=== PATIENT | female | born 1970 | race Caucasian/White ===

== ENCOUNTER → 2017-11-15 14:49 | Outpatient (CLI) | payer BC, SELFPAY ==
[2017-09-08 11:09] VITALS: BMI 27.9
[2017-09-08 13:16] VITALS: BP 138/80
[2017-11-15 15:57] LABS: Absolute Lymphocyte Count 1.92 X10^3/ul (0.83-4.51); Basophil# 0.05 X10^3/uL; Basophil% 0.6 % (0-1); Eosinophil# 0.31 X10^3/uL; Hematocrit 40.8 % (37-47); Hemoglobin 13.2 g/dl (12.0-15.0); Lymphocyte # 1.92 X10^3/ul (4.0); Lymphocyte % 24.6 % (19-41); Mean Corp Hgb Conc 32.4 g/gl (32-36); Mean Corpuscular Hgb 29.7 pg (27.0-32.0); Mean Corpuscular Volume 91.9 fL (81-99); Mean Platelet Vol. 10.4 fl (6.2-12.0); Monocyte# 0.53 X10^3/uL; Monocyte% 6.8 % (0-10); Neutrophil # 4.97 X10^3/uL (2.7-7.7); Neutrophil % 63.6 % (47-70); Platelet Count 250 K/mm3 (150-450); RBC Distribution Width CV 13.4 % (11.6-14.6); RBC Distribution Width SD 44.2 fl (35.1-43.9); Red Blood Count 4.44 M/mm3 (4.2-5.4); White Blood Count 7.8 K/mm3 (4.4-11.0)
[2017-11-15 16:00] LABS: POSITIVE COUNT NO; POSITIVE DIFFERENTIAL NO; POSITIVE MORPHOLOGY NO
[2017-11-15 16:25] LABS: Ferritin 28 ng/mL (8-252); Iron 65 ug/dL (50-170); Iron Binding Capacity,Total 392 ug/dL (250-450)
[2017-11-16 11:36] LABS: Vitamin B12 380 pg/mL (211-911); Vitamin D,25 Hydroxy 16.2 ng/mL (19.95-100.01)
== END ==
PROVIDERS: Family Provider Family Medicine; PCP Family Medicine; Visit Provider Family Medicine
DX: R53.83 Other fatigue (principal)
CPT/HCPCS: 36415; 82306; 82607; 82728; 83540; 83550; 85025

== ENCOUNTER → 2018-01-01 14:14 | Outpatient (CLI) | payer BC, SELFPAY ==
[2018-01-01 16:31] LABS: Absolute Lymphocyte Count 2.04 X10^3/ul (0.83-4.51); Basophil# 0.04 X10^3/uL; Basophil% 0.6 % (0-1); Eosinophil# 0.23 X10^3/uL; Eosinophils% 3.4 % (0-5); Hematocrit 39.7 % (37-47); Hemoglobin 13.5 g/dl (12.0-15.0); Lymphocyte # 2.04 X10^3/ul (4.0); Lymphocyte % 29.9 % (19-41); Mean Corpuscular Volume 91.1 fL (81-99); Mean Platelet Vol. 10.4 fl (6.2-12.0); Monocyte# 0.45 X10^3/uL; Monocyte% 6.6 % (0-10); Neutrophil # 4.04 X10^3/uL (2.7-7.7); Neutrophil % 59.2 % (47-70); Platelet Count 297 K/mm3 (150-450); RBC Distribution Width SD 42.7 fl (35.1-43.9); Red Blood Count 4.36 M/mm3 (4.2-5.4); White Blood Count 6.8 K/mm3 (4.4-11.0)
[2018-01-01 16:37] LABS: Hemoglobin A1c 5.8 % (4.2-6.3)
[2018-01-01 16:39] LABS: ALB/GLOB Ratio 1.1 RATIO (0.9-2.4); AST(SGOT) 14 U/L (15-37); Alanine Aminotransfer ALT/SGPT 24 U/L (13-56); Albumin, Serum 4.2 g/dL (3.2-5.0); Alkaline Phosphatase 80 U/L (45-117); Anion Gap 10 (5-15); BUN 13 mg/dL (7-18); BUN/Creat Ratio 19.6 RATIO (10-20); Calcium,Total 9.1 mg/dL (8.5-10.1); Chloride 106 mmol/L (98-107); Cholesterol 244 mg/dL (200); Creatinine, Serum 0.66 mg/dL (0.55-1.02); EST Glomerular Filtration Rate 102 mL/min (>60); Est Glom Filt Rate - Afr Amer 123 mL/min (>60); Ferritin 15 ng/mL (8-252); Globulin 3.8 g/dL (2.2-4.2); Glucose 98 mg/dL (74-106); High Density Lipoprotein 43 mg/dL; Iron 44 ug/dL (50-170); Iron Binding Capacity,Total 430 ug/dL (250-450); Potassium 3.5 mmol/L (3.5-5.1); Rheumatoid Factor < 10.0 IU/mL (<15); Sodium Level 141 mmol/L (136-145); Triglycerides 246 mg/dL; Very Low Density Lipoprotein 49 mg/dL (5-40)
[2018-01-01 16:40] LABS: POSITIVE COUNT NO; POSITIVE DIFFERENTIAL NO; POSITIVE MORPHOLOGY NO
[2018-01-01 17:10] LABS: Erythrocyte Sedimentation Rate 4 mm/hr (0-20)
[2018-01-02 09:02] LABS: Vitamin D,25 Hydroxy 63.2 ng/mL (29.95-100.01)
[2018-01-04 09:06] LABS: Anti-Cardiolipin Ab, IgA, Qn < 9 APL U/mL (0-11); Anti-Cardiolipin Ab, IgG, Qn < 9 GPL U/mL (0-14); Anti-Cardiolipin Ab, IgM, Qn 11 MPL U/mL (0-12); CCP IgG Antibodies < 1 units (0-19)
[2018-01-04 09:37] LABS: ANTINUCLEAR ANTIBODIES DIRECT Positive (Negative); RNP Ab 1.8 AI (0.0-0.9)
[2018-01-04 11:33] LABS: Anti-dsDNA Ab 17 IU/mL (0-9)
== END ==
PROVIDERS: Family Provider Family Medicine; PCP Family Medicine; Visit Provider Family Medicine
DX: E61.1 Iron deficiency (principal); E55.9 Vitamin D deficiency, unspecified; R73.02 Impaired glucose tolerance (oral); E78.5 Hyperlipidemia, unspecified; M35.1 Other overlap syndromes
CPT/HCPCS: 36415; 80053; 80061; 82306; 82728; 83036; 83540; 83550; 85025; 85652; 86038; 86147; 86200; 86225; 86235; 86431

== ENCOUNTER → 2018-01-09 09:41 | Outpatient (CLI) | payer BC, SELFPAY ==
--- NOTE | 2018-01-09 09:43 | NM_ITS ---
CLINICAL: 47-year-old female with reported history of abdominal bloating. SEMI-SOLID PHASE 99m Tc SULFUR COLLOID GASTRIC EMPTYING STUDY COMPARISON: None available FINDINGS: The patient was administered 1.0 mCi of 99m Tc sulfur colloid mixed with oatmeal and consumed per os. Image acquisitions in the anterior-posterior projections for a total of 60 minutes. There is prompt visualization of the stomach. There is no gastroesophageal reflux identified. First order kinetics are maintained throughout the duration of the acquisitions. The T1/2 linear fit was calculated to be 63.18 minutes, (Normal: 12-56 minutes). NM/Gastric Emptying Study IMPRESSION: 1. ABNORMAL 99m Tc sulfur colloid semi-solid phase (oatmeal) gastric emptying imaging examination. A. There is delayed semi-solid phase gastric emptying compared to normal controls with maintained first order kinetics throughout all components of the examination. (Cary et al, J Nucl Med Tech 38: 186, 2010). Electronically Signed: Thompson Poole DO at 23:33 EDT Tel , Service support ,
== END ==
PROVIDERS: Family Provider Family Medicine; PCP Family Medicine; Visit Provider Internal Medicine Gastroenterology
DX: R14.0 Abdominal distension (gaseous) (principal); R11.0 Nausea
CPT/HCPCS: 78264; A9541

== ENCOUNTER → 2018-01-29 16:38 | Outpatient (CLI) | payer BC, SELFPAY ==
[2018-01-31 16:11] LABS: SJOGREN'S Anti-SS-A test < 0.2 AI (0.0-0.9)
[2018-02-01 11:36] LABS: SJOGREN'S Anti-SS-B test < 0.2 AI (0.0-0.9)
== END ==
PROVIDERS: Family Provider Family Medicine; PCP Family Medicine; Visit Provider Family Medicine
DX: R76.8 Other specified abnormal immunological findings in serum (principal)
CPT/HCPCS: 36415; 86235

== ENCOUNTER → 2018-02-13 16:40 | Outpatient (CLI) | payer BC, SELFPAY ==
[2018-02-13 16:44] LABS: Bacteria 0 SEEN /hpf (None Seen); Mucous, Urine 0 SEEN /hpf (<or=2+); Red Blood Cells-Urine 0 SEEN /hpf (0-5); White Blood Cells 0 SEEN /hpf (0-5)
[2018-02-13 17:54] LABS: Hematocrit 38.5 % (37-47); Hemoglobin 12.5 g/dl (12.0-15.0); Mean Corp Hgb Conc 32.5 g/gl (32-36); Mean Corpuscular Hgb 29.9 pg (27.0-32.0); Mean Corpuscular Volume 92.1 fL (81-99); Mean Platelet Vol. 9.9 fl (6.2-12.0); Platelet Count 270 K/mm3 (150-450); RBC Distribution Width CV 13.4 % (11.6-14.6); RBC Distribution Width SD 44.3 fl (35.1-43.9); Red Blood Count 4.18 M/mm3 (4.2-5.4)
[2018-02-13 17:55] LABS: Scan Indicated on CBC? Y/N NO
[2018-02-13 18:16] LABS: Color, Urine Yellow (Yellow); Glucose, Dipstick Normal (Normal); Ketone-Dipstick Negative (Negative); Leukocyte Esterase-Dipstick Negative /ul (Negative); Nitrite-Dipstick Negative (Negative); Occult Blood-Urine Negative /ul (Negative); Protein-Dipstick Negative (Negative); Urine Bilirubin Dipstick Negative (Negative); Urine Clarity Clear (Clear); Urine Urobilinogen Normal (Normal)
[2018-02-13 18:20] LABS: ALB/GLOB Ratio 1.1 RATIO (0.9-2.4); AST(SGOT) 14 U/L (15-37); Alanine Aminotransfer ALT/SGPT 30 U/L (13-56); Albumin, Serum 3.7 g/dL (3.2-5.0); Alkaline Phosphatase 70 U/L (45-117); Anion Gap 7 (5-15); BUN 18 mg/dL (7-18); BUN/Creat Ratio 23.9 RATIO (10-20); Calcium,Total 9.4 mg/dL (8.5-10.1); Chloride 109 mmol/L (98-107); Creatinine, Serum 0.75 mg/dL (0.55-1.02); EST Glomerular Filtration Rate 87 mL/min (>60); Est Glom Filt Rate - Afr Amer 106 mL/min (>60); Ferritin 25 ng/mL (8-252); Globulin 3.4 g/dL (2.2-4.2); Glucose 113 mg/dL (74-106); Iron 132 ug/dL (50-170); Iron Binding Capacity,Total 359 ug/dL (250-450); Magnesium 2.1 mg/dL (1.6-2.6); PERCENT IRON SATURATION 36.8 % (15.0-55.0); Potassium 3.4 mmol/L (3.5-5.1); Protein, Total 7.1 g/dL (6.4-8.2); Sodium Level 142 mmol/L (136-145)
[2018-02-13 18:27] LABS: Squamous Epithelial Cells - UA 0-5 SEEN /hpf (5-10)
== END ==
PROVIDERS: Family Provider Family Medicine; PCP Family Medicine; Visit Provider Family Medicine
DX: E61.1 Iron deficiency (principal)
CPT/HCPCS: 36415; 80053; 81001; 82728; 83540; 83550; 83735; 85027; 87086; 87088

== ENCOUNTER → 2018-03-14 10:00 | Outpatient (CLI) | payer BC, SELFPAY ==
--- NOTE | 2018-03-14 10:00 | DT_ITS ---
This patient was seen during an EMR downtime March 11, 2018 - March 18, 2018. This patient may have a combination of paper and electronic documentation or all paper documentation. All documentation is viewable within the e-chart portion of [facility] for each patient visit.
== END ==
PROVIDERS: Family Provider Family Medicine; PCP Family Medicine; Visit Provider Family Medicine
DX: N39.0 Urinary tract infection, site not specified (principal)
CPT/HCPCS: 87086; 87088; 87186

== ENCOUNTER → 2018-04-01 16:19 | Outpatient (CLI) | payer BC, SELFPAY ==
[2018-04-05 14:50] LABS: HPV APTIMA, High Risk Negative (Negative)
== END ==
PROVIDERS: Visit Provider Obstetrics & Gynecology
DX: Z12.4 Encounter for screening for malignant neoplasm of cervix (principal)
CPT/HCPCS: 88175; G0145

== ENCOUNTER → 2018-04-02 16:22 | Outpatient (CLI) | payer BC, SELFPAY ==
[2018-04-02 18:16] LABS: Absolute Lymphocyte Count 2.26 X10^3/ul (0.83-4.51); Absolute Neutrophil Count 5.5 X10^3/uL (2.0-7.7); Basophil# 0.02 X10^3/uL; Basophil% 0.2 % (0-1); Eosinophil# 0.33 X10^3/uL; Eosinophils% 3.9 % (0-5); Hematocrit 40.1 % (37-47); Lymphocyte # 2.26 X10^3/ul (4.0); Lymphocyte % 26.4 % (19-41); Mean Corp Hgb Conc 32.4 g/gl (32-36); Mean Corpuscular Hgb 29.5 pg (27.0-32.0); Mean Corpuscular Volume 90.9 fL (81-99); Mean Platelet Vol. 10.4 fl (6.2-12.0); Monocyte# 0.44 X10^3/uL; Monocyte% 5.1 % (0-10); Neutrophil % 64.2 % (47-70); Platelet Count 281 K/mm3 (150-450); RBC Distribution Width CV 13.8 % (11.6-14.6); RBC Distribution Width SD 45.7 fl (35.1-43.9); Red Blood Count 4.41 M/mm3 (4.2-5.4); White Blood Count 8.6 K/mm3 (4.4-11.0)
[2018-04-02 18:18] LABS: Cholesterol 228 mg/dL (200); Ferritin 37 ng/mL (8-252); High Density Lipoprotein 39 mg/dL; Iron 120 ug/dL (50-170); Iron Binding Capacity,Total 382 ug/dL (250-450); Triglycerides 246 mg/dL; Very Low Density Lipoprotein 49 mg/dL (5-40)
[2018-04-02 18:20] LABS: POSITIVE COUNT NO; POSITIVE DIFFERENTIAL NO; POSITIVE MORPHOLOGY NO
[2018-04-02 18:39] LABS: Hemoglobin A1c 5.8 % (4.2-6.3)
[2018-04-03 10:20] LABS: Vitamin D,25 Hydroxy 38.9 ng/mL (29.95-100.01)
== END ==
PROVIDERS: Family Provider Family Medicine; PCP Family Medicine; Visit Provider Family Medicine
DX: E61.1 Iron deficiency (principal); J45.30 Mild persistent asthma, uncomplicated; E55.9 Vitamin D deficiency, unspecified; R73.02 Impaired glucose tolerance (oral); E78.5 Hyperlipidemia, unspecified
CPT/HCPCS: 36415; 80061; 82306; 82728; 83036; 83540; 83550; 85025

== ENCOUNTER → 2018-05-03 17:45 | Outpatient (CLI) | payer BC, SELFPAY ==
--- NOTE | 2018-05-03 18:08 | RAD_ITS ---
STUDY: X-RAY - LUMBOSACRAL SPINE REASON FOR EXAM: Female, 47 years old. Lower back pain. TECHNIQUE: 6 view(s) of the lumbosacral spine were obtained, including lateral views obtained in flexion and extension. COMPARISON: None FINDINGS: Normal lumbar lordosis. There is decreased range of motion on flexion and extension. There is mild dextroscoliosis of the lower spine and levoscoliosis of the mid and upper spine. There is normal alignment of the vertebrae. Normal vertebral bodies. There is mild spondylosis at the L1-2 level.. Normal disc space heights. There are mild degenerative changes of facet joints at the L5-S1 level. Normal bilateral sacral ala, sacroiliac joints, and visualized sacrum. Normal visualized soft tissue structures. RAD/L/S Spine w Bend Min 6 Vw IMPRESSION: Mild degenerative changes. Mild S shaped scoliosis. Decreased range of motion on flexion and extension might be due to muscle spasm or guarding. No demonstrated fracture or subluxation. Electronically Signed: Jason Davison MD at 3:08 EDT , Service support ,
== END ==
PROVIDERS: Family Provider Family Medicine; PCP Family Medicine; Visit Provider Psychiatry & Neurology Neurology
DX: M54.40 Lumbago with sciatica, unspecified side (principal)
CPT/HCPCS: 72114

== ENCOUNTER → 2018-07-26 12:48 | Outpatient (CLI) | payer BC, SELFPAY ==
[2018-07-28 03:06] LABS: HCV Quant. RNA PCR HCV Not Detected IU/mL (.)
== END ==
PROVIDERS: Family Provider Family Medicine; PCP Family Medicine
DX: B19.20 Unspecified viral hepatitis C without hepatic coma (principal); R76.8 Other specified abnormal immunological findings in serum
CPT/HCPCS: 36415; 87522

== ENCOUNTER → 2018-08-08 12:48 | Outpatient (CLI) | payer BC, SELFPAY ==
--- NOTE | 2018-08-08 12:59 | ECHOD_ITS ---
Reason For Study: SOB on exertion Procedure This was a 2D Doppler, Color Flow transthoracic echocardiogram. Exam performed in department. Left Ventricle Normal LV size. Left ventricular systolic function is normal. The estimated ejection fraction is 60 %. No evidence for diastolic dysfunction. No regional wall motion abnormalities noted. Right Ventricle Normal RV size. Normal systolic function. Atria Normal left atrium. Normal right atrium. Mitral Valve Normal mitral valve. Tricuspid Valve Normal tricuspid valve. Mild tricuspid valve insufficiency. Pulmonary artery systolic pressure is 19 mmHg. Aortic Valve Normal aortic valve. Trisinus/trileaflet aortic valve. Pulmonic Valve Normal pulmonic valve. Great Vessels Normal aortic root. The pulmonary artery is normal size. Normal inferior vena cava. Pericardium/Pleural No pericardial effusion. MMode/2D Measurements & Calculations LVIDd: 3.8 cm IVSd: 1.1 cm Ao root diam: 3.1 cm LVIDs: 2.5 cm LVPWd: 1.0 cm LA dimension: 3.0 cm RVDd: 3.3 cm FS: 34.0 % LAV(MOD-bp): 33.1 ml LA A4 area: 12.3 cm2 RA A4 area: 10.4 cm2 LAV(MOD-sp2): 41.8 ml LAV(MOD-sp4): 25.0 ml Time Measurements MV dec time: 0.18 sec Doppler Measurements & Calculations MV E max braulio: 68.3 cm/sec Lat Peak E' Braulio: 10.6 cm/sec Med Peak E' Braulio: 7.0 cm/sec MV A max braulio: 66.3 cm/sec E/E' lat: 6.4 E/E' med: 9.8 MV E/A: 1.0 MV V2 max: 76.8 cm/sec MV P1/2t max braulio: 60.4 cm/sec Ao V2 max: 110.0 cm/sec MV max P.4 mmHg MV P1/2t: 38.9 msec Ao max P.8 mmHg MV V2 mean: 47.8 cm/sec MV dec slope: 454.5 cm/sec2 Ao V2 mean: 73.0 cm/sec MV mean P.1 mmHg MVA(P1/2t): 5.7 cm2 Ao mean P.4 mmHg MV V2 VTI: 15.4 cm Ao V2 VTI: 20.8 cm LV V1 max: 77.0 cm/sec PA V2 max: 91.2 cm/sec TR max braulio: 195.5 cm/sec LV V1 max P.4 mmHg TR max P.3 mmHg LV V1 mean P.4 mmHg LV V1 mean: 55.0 cm/sec LV V1 VTI: 16.6 cm Interpretation Summary Normal LV size. Left ventricular systolic function is normal. The estimated ejection fraction is 60 %. No evidence for diastolic dysfunction. Structurally normal valves. Ordering Physician: Sky Mei Referring Physician: Sky Mei Performed By: Gigi Nuno RCS
== END ==
PROVIDERS: Family Provider Family Medicine; PCP Family Medicine; Referring Provider Family Medicine; Visit Provider Family Medicine
DX: R06.02 Shortness of breath (principal)
CPT/HCPCS: 93306

== ENCOUNTER 2018-08-12 16:30 | Outpatient (RCR) | payer BC, SELFPAY ==
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
--- NOTE | 2018-07-22 17:29 | HP.PTREVAL ---
KENDRICK CARTAGENA, It has been my pleasure to treat ROHAN HERNANDEZ over the last 9 visits for LUMBAGO. Please see the progress note below for an update on the physical therapy plan of care! Subjective: PATIENT REPORTS SHE IS STILL GETTING OVER BEING SICK BUT BACK TO WORK. STATES SHE DOES NOT THINK PT IS HELPING NOW. Objective/Function: UPON RE-EVAL TODAY PATIENT IS NOT IMPROVING. SHE IS NOT MAKING PROGRESS TOWARD THE SET PT GOALS. UPON EXAM, THERE ARE NO SIGNIFICANT CHANGES EXCEPT SHE DOES HAVE FULL LUMBAR FLEXION ROM NOW AND PATIENT DENIES INCREASED PAIN WITH TESTING. BACK OSWESTRY SCORE IS WORSE. I RECOMMENDED TRIAL OF AQUATIC THERAPY AND PATIENT IS AGREEABLE. Plan Plan: TRIAL OF VERY SLOW PROGRESSION OF AQUATIC THERAPY FOR PAIN RELEIF, POSTURE CORRECTION/STRENGTHENING, INSTRUCTION IN APPROPRIATE BODY MECHANICS AND ACTIVITY MODIFICATIONS. DLS WITH A NEUTRAL SPINE. DILLON LE ROM, STRETCHING AND STRENGTHENING. HEP INSTRUCTION. Goals Goal 1:: DECREASE C/O LOW BACK AND DILLON LE SX'S. Goal Time Frame: 4-6 Weeks Goal Progress: Not Progressing Goal 2:: IMPROVE PERSONAL CARE, LIFTING, WALKING, STANDING, SLEEP, SOCIAL LIFE, TRAVEL AND EMPLOYMENT/HOMEMAKING FUNCTION. Goal Time Frame: 4-6 Weeks Goal Progress: Not Progressing Goal 3:: INSTRUCT IN PROPHYLAXIS Goal Time Frame: 4-6 Weeks Goal Progress: Not Progressing Anticipated Interventions Patient/Client Instruction: Educate patient on: Condition, Plan of Care, Risk Factors, Benefits of Fitness Program For the Purpose of:: To improve self management Therapeutic Exercise to Include: Strength training, Body mechanics, Postural training, Flexibilty training, In an aquatic setting, Dynamic Lumbar Stabilization For the Purpose of:: To decrease pain, To increase ROM, To improve muscle performance and motor function, To increase tolerance to activity/condition/position, To improve ability of physical actions for home/community/work/leisure, To improve gait and locomotor functions TENS: Yes IF ES: Yes Cryotherapy (ice pack, ice massage): Yes Thermo therapy (hot pack): Yes Ultrasound (thermal/non thermal): Yes For the Purpose of:: To decrease pain, To decrease swelling/inflammation, To increase ROM Please do not hesitate to contact me at [phone] by phone or if you have questions or concerns regarding this new plan of care! Sincerely, Rena Au
--- NOTE | 2018-09-06 17:25 | HP.PT.NRP ---
HP - Discharge Summary (1) - Patient Information ROHAN HERNANDEZ was seen in my office for initial evaluation on 06/26/18. The following Plan of Care was established for this patient: Initial Frequency: 2-3x /Week Initial Duration: 4-6 Weeks - Anticipated Interventions Patient/Client Instruction: Educate patient on: Condition, Plan of Care, Risk Factors, Benefits of Fitness Program For the Purpose of:: To improve self management Therapeutic Exercise to Include: Strength training, Body mechanics, Postural training, Flexibilty training, In an aquatic setting, Dynamic Lumbar Stabilization For the Purpose of:: To decrease pain, To increase ROM, To improve muscle performance and motor function, To increase tolerance to activity/condition/position, To improve ability of physical actions for home/community/work/leisure, To improve gait and locomotor functions TENS: Yes IF ES: Yes Cryotherapy (ice pack, ice massage): Yes Thermo therapy (hot pack): Yes Ultrasound (thermal/non thermal): Yes For the Purpose of:: To decrease pain, To decrease swelling/inflammation, To increase ROM This patient was last seen in our office . Pertinent comments regarding their Physical therapy will appear below: I RECEIVED A NOTE STATING PATIENT CANCELLED REMAINING APPOINTMENTS BECAUSE PT IS NOT WORKING FOR HER. SHE is appropriate to return to MD for further follow-up as needed. At this point I will be discontinuing this patient from physical therapy. I would be happy to see this patient again in the future if found appropriate by the physician. Thank you! Rena Au
== END 2018-08-12 19:00 | disposition home or self-care (01) ==
LOC: PT 16:30
PROVIDERS: Family Provider Family Medicine; PCP Family Medicine
DX: M54.5 Low back pain (principal)
CPT/HCPCS: 97014; 97035; 97110; 97113; 97162; 97164; 97530; G0283

== ENCOUNTER → 2018-08-23 09:44 | Outpatient (CLI) | payer BC, SELFPAY ==
--- NOTE | 2018-08-23 09:47 | US_ITS ---
STUDY: ABDOMINAL ULTRASOUND - RIGHT UPPER QUADRANT REASON FOR VISIT: Female, 47 years old. Right upper quadrant pain. TECHNIQUE: Ultrasound evaluation of the right upper quadrant was performed with real-time and static hurt-scale imaging. TECHNICAL QUALITY: Adequate. COMPARISON: November 03, 2017 FINDINGS: Liver: The liver measures 15.4 cm. There is increased echogenicity consistent with fatty infiltration. The bile ducts are within normal limits. There is hepatic color flow. The direction of portal flow is hepatopetal. There is no demonstrated mass lesion. Gallbladder: Normal distended gallbladder. The gallbladder wall measures 2.8 mm. There is a negative sonographic Paredes's sign. There is no pericholecystic fluid. There are no gallstones. Common Bile Duct (C.B.D.): The common bile duct measures 4.3 mm. Pancreas: Normal size of the head, body and tail of the pancreas. There is normal echogenicity of the pancreas. There is no demonstrated pancreatic mass or cyst. Right Kidney: Normal size of the right kidney. The right kidney measures 11.5 cm in length. Normal renal cortex. There is no demonstrated renal mass or cyst. There is no right hydronephrosis. Dedicated images of the region of concern within the right abdomen were obtained that demonstrate no discrete solid or cystic lesions. US/Abdomen Limited IMPRESSION: Fatty infiltration of the liver. Electronically Signed: Ranjana Villatoro MD at 10:50 EST Tel , Service support ,
== END ==
PROVIDERS: Family Provider Family Medicine; PCP Family Medicine; Referring Provider Obstetrics & Gynecology; Visit Provider Obstetrics & Gynecology
DX: R10.11 Right upper quadrant pain (principal)
CPT/HCPCS: 76705

== ENCOUNTER → 2018-11-18 08:24 | Outpatient (CLI) | payer BC, SELFPAY ==
[2018-11-18 09:10] LABS: Red Blood Cells-Urine 0 SEEN /hpf (0-5)
[2018-11-18 10:15] LABS: Absolute Lymphocyte Count 1.75 X10^3/ul (0.83-4.51); Absolute Neutrophil Count 3.8 X10^3/uL (2.0-7.7); Basophil# 0.05 X10^3/uL; Basophil% 0.8 % (0-1); Color, Urine Yellow (Yellow); Eosinophil# 0.21 X10^3/uL; Eosinophils% 3.3 % (0-5); Glucose, Dipstick Normal (Normal); Hemoglobin 13.9 g/dl (12.0-15.0); Ketone-Dipstick 5 mg/dl (Negative); Leukocyte Esterase-Dipstick Negative /ul (Negative); Lymphocyte # 1.75 X10^3/ul (4.0); Lymphocyte % 27.8 % (19-41); Mean Corp Hgb Conc 32.3 g/gl (32-36); Mean Corpuscular Hgb 30.5 pg (27.0-32.0); Mean Corpuscular Volume 94.3 fL (81-99); Mean Platelet Vol. 10.4 fl (6.2-12.0); Monocyte# 0.45 X10^3/uL; Monocyte% 7.2 % (0-10); Neutrophil % 60.4 % (47-70); Nitrite-Dipstick Negative (Negative); Occult Blood-Urine Negative /ul (Negative); Platelet Count 276 K/mm3 (150-450); Protein-Dipstick Negative (Negative); RBC Distribution Width CV 13.2 % (11.6-14.6); RBC Distribution Width SD 45.4 fl (35.1-43.9); Red Blood Count 4.56 M/mm3 (4.2-5.4); Specific Gravity, Urine 1.025 (1.002-1.030); Urine Bilirubin Dipstick Negative (Negative); Urine Clarity Clear (Clear); Urine Urobilinogen Normal (Normal); White Blood Count 6.3 K/mm3 (4.4-11.0)
[2018-11-18 10:17] LABS: POSITIVE COUNT NO; POSITIVE DIFFERENTIAL NO; POSITIVE MORPHOLOGY NO
[2018-11-18 10:22] LABS: Bacteria 1+ /hpf (None Seen); Squamous Epithelial Cells - UA 0-5 SEEN /hpf (5-10); White Blood Cells 0-5 SEEN /hpf (0-5)
[2018-11-18 10:23] LABS: Mucous, Urine 2+ /hpf (<or=2+)
[2018-11-18 10:30] LABS: Erythrocyte Sedimentation Rate 3 mm/hr (0-20)
[2018-11-18 11:10] LABS: ALB/GLOB Ratio 1.1 RATIO (0.9-2.4); AST(SGOT) 22 U/L (15-37); Alanine Aminotransfer ALT/SGPT 42 U/L (13-56); Alkaline Phosphatase 94 U/L (45-117); Anion Gap 12 (5-15); BUN 10 mg/dL (7-18); BUN/Creat Ratio 13.2 RATIO (10-20); CPK Total, Creatine Kinase 59 U/L (26-192); CRP < 2.90 mg/L (0.0-3.0); Calcium,Total 9.3 mg/dL (8.5-10.1); Chloride 110 mmol/L (98-107); Cholesterol 282 mg/dL (200); Creatinine, Serum 0.76 mg/dL (0.55-1.02); EST Glomerular Filtration Rate 87 mL/min (>60); Est Glom Filt Rate - Afr Amer 105 mL/min (>60); Ferritin 86 ng/mL (8-252); Globulin 3.6 g/dL (2.2-4.2); Glucose 100 mg/dL (74-106); High Density Lipoprotein 39 mg/dL; Iron 70 ug/dL (50-170); Iron Binding Capacity,Total 333 ug/dL (250-450); Potassium 3.5 mmol/L (3.5-5.1); Protein, Total 7.6 g/dL (6.4-8.2); Sodium Level 145 mmol/L (136-145); Triglycerides 551 mg/dL
[2018-11-19 11:30] LABS: Complement C3 122 mg/dL (82-167)
[2018-11-20 14:07] LABS: ANTINUCLEAR ANTIBODIES DIRECT Positive (Negative); Anti-Centromere B Ab <0.2 AI (0.0-0.9); Anti-Chromatin <0.2 AI (0.0-0.9); Anti-Jo <0.2 AI (0.0-0.9); Anti-Scleroderma-70 AB <0.2 AI (0.0-0.9); RNP Ab 2.1 AI (0.0-0.9); SJOGREN'S Anti-SS-A test < 0.2 AI (0.0-0.9); SJOGREN'S Anti-SS-B test < 0.2 AI (0.0-0.9); Smith Ab <0.2 AI (0.0-0.9); Vitamin D 1,25-Dihydroxy 65.3 pg/mL (19.9-79.3)
[2018-11-22 22:44] LABS: Anti-dsDNA Ab 60 IU/mL (0-9)
== END ==
PROVIDERS: Family Provider Family Medicine; PCP Family Medicine; Referring Provider Internal Medicine Rheumatology; Visit Provider Internal Medicine Rheumatology
DX: D50.9 Iron deficiency anemia, unspecified (principal); E78.5 Hyperlipidemia, unspecified; E55.9 Vitamin D deficiency, unspecified; R73.02 Impaired glucose tolerance (oral)
CPT/HCPCS: 36415; 80053; 80061; 81001; 82550; 82652; 82728; 83036; 83540; 83550; 85025; 85652; 86038; 86140; 86160; 86225; 86235

== ENCOUNTER → 2018-12-20 08:13 | Outpatient (CLI) | payer BC, SELFPAY ==
[2018-12-20 10:41] LABS: Cholesterol 248 mg/dL (200); Ferritin 103 ng/mL (8-252); High Density Lipoprotein 41 mg/dL; Iron 78 ug/dL (50-170); Iron Binding Capacity,Total 351 ug/dL (250-450); Triglycerides 365 mg/dL; Very Low Density Lipoprotein 73 mg/dL (5-40)
== END ==
PROVIDERS: Family Provider Family Medicine; PCP Family Medicine; Referring Provider Family Medicine; Visit Provider Family Medicine
DX: E61.1 Iron deficiency (principal); E78.5 Hyperlipidemia, unspecified
CPT/HCPCS: 36415; 80061; 82728; 83540; 83550

== ENCOUNTER → 2018-12-23 10:06 | Outpatient (CLI) | payer BC, SELFPAY ==
--- NOTE | 2018-12-23 10:30 | RAD_ITS ---
STUDY: X-RAY - CERVICAL SPINE REASON FOR EXAM: Female, 48 years old. CHRONIC NECK PAIN; PATIENT UNABLE TO REMOVE EARRING IN EAR TECHNIQUE: 7 view(s) of the cervical spine were obtained. COMPARISON: None FINDINGS: There are degenerative changes of the anterior atlantoaxial articulation. Normal odontoid process. Normal cervical lordosis. There is multi-level endplate spondylosis. There is multi-level degenerative disc disease with multilevel disc space narrowing. There is multi-level osseous foraminal stenosis. The soft tissue structures are unremarkable. RAD/Cerv Spine Obl/Flex/Ext Comp IMPRESSION: There is multi-level endplate spondylosis. There is multi-level degenerative disc disease with multilevel disc space narrowing. There is multi-level osseous foraminal stenosis. Electronically Signed: Richard Alvarez, at 10:10 EDT Tel , Service support ,
== END ==
PROVIDERS: Family Provider Family Medicine; PCP Family Medicine; Referring Provider Psychiatry & Neurology Neurology; Visit Provider Psychiatry & Neurology Neurology
DX: M54.2 Cervicalgia (principal)
CPT/HCPCS: 72052

== ENCOUNTER → 2019-03-07 14:12 | Outpatient (CLI) | payer BC, SELFPAY | PROVIDERS: Family Provider Family Medicine; PCP Family Medicine; Referring Provider Internal Medicine Rheumatology; Visit Provider Internal Medicine Rheumatology | DX: Z00.00 Encounter for general adult medical examination without abnormal findings (principal) ==

== ENCOUNTER → 2019-03-12 12:45 | Outpatient (CLI) | payer BC, SELFPAY ==
[2019-03-12 12:53] LABS: Bacteria 0 SEEN /hpf (None Seen); Mucous, Urine 0 SEEN /hpf (<or=2+); Red Blood Cells-Urine 0 SEEN /hpf (0-5)
[2019-03-12 14:18] LABS: Color, Urine Yellow (Yellow); Glucose, Dipstick Normal (Normal); Hematocrit 40.2 % (37-47); Ketone-Dipstick Negative (Negative); Leukocyte Esterase-Dipstick 25 /ul (Negative); Mean Corp Hgb Conc 32.3 g/gl (32-36); Mean Corpuscular Hgb 29.7 pg (27.0-32.0); Mean Platelet Vol. 10.2 fl (6.2-12.0); Nitrite-Dipstick Negative (Negative); Occult Blood-Urine Negative /ul (Negative); Platelet Count 294 K/mm3 (150-450); Protein-Dipstick Negative (Negative); RBC Distribution Width CV 13.1 % (11.6-14.6); RBC Distribution Width SD 43.6 fl (35.1-43.9); Red Blood Count 4.37 M/mm3 (4.2-5.4); Urine Bilirubin Dipstick Negative (Negative); Urine Clarity Sl. Cloudy (Clear); Urine Urobilinogen Normal (Normal); Urine pH 6.5 (5.0 - 8.0)
[2019-03-12 14:21] LABS: Scan Indicated on CBC? Y/N NO
[2019-03-12 14:26] LABS: Erythrocyte Sedimentation Rate 1 mm/hr (0-20)
[2019-03-12 14:39] LABS: Squamous Epithelial Cells - UA 0-5 SEEN /hpf (5-10); White Blood Cells 0-5 SEEN /hpf (0-5)
[2019-03-12 14:54] LABS: ALB/GLOB Ratio 1.1 RATIO (0.9-2.4); AST(SGOT) 20 U/L (15-37); Alanine Aminotransfer ALT/SGPT 42 U/L (13-56); Albumin, Serum 3.9 g/dL (3.2-5.0); Alkaline Phosphatase 91 U/L (45-117); Anion Gap 9 (5-15); BUN 11 mg/dL (7-18); BUN/Creat Ratio 14.2 RATIO (10-20); CPK Total, Creatine Kinase 51 U/L (26-192); CRP < 2.90 mg/L (0.0-3.0); Calcium,Total 8.9 mg/dL (8.5-10.1); Chloride 108 mmol/L (98-107); Creatinine, Serum 0.77 mg/dL (0.55-1.02); EST Glomerular Filtration Rate 85 mL/min (>60); Est Glom Filt Rate - Afr Amer 102 mL/min (>60); Globulin 3.5 g/dL (2.2-4.2); Glucose 126 mg/dL (74-106); Potassium 3.6 mmol/L (3.5-5.1); Protein, Total 7.4 g/dL (6.4-8.2); Sodium Level 142 mmol/L (136-145); Uric Acid 5.3 mg/dL (2.6-6.0)
[2019-03-13 08:29] LABS: Complement C3 117 mg/dL (82-167)
[2019-03-13 16:07] LABS: ANTINUCLEAR ANTIBODIES DIRECT Positive (Negative); Anti-Centromere B Ab <0.2 AI (0.0-0.9); Anti-Chromatin <0.2 AI (0.0-0.9); Anti-Jo <0.2 AI (0.0-0.9); Anti-Scleroderma-70 AB <0.2 AI (0.0-0.9); RNP Ab 2.1 AI (0.0-0.9); SJOGREN'S Anti-SS-A test < 0.2 AI (0.0-0.9); SJOGREN'S Anti-SS-B test < 0.2 AI (0.0-0.9); Smith Ab <0.2 AI (0.0-0.9)
[2019-03-14 11:44] LABS: Anti-dsDNA Ab 64 IU/mL (0-9)
== END ==
PROVIDERS: Family Provider Family Medicine; PCP Family Medicine; Referring Provider Internal Medicine Rheumatology; Visit Provider Internal Medicine Rheumatology
DX: R76.8 Other specified abnormal immunological findings in serum (principal)
CPT/HCPCS: 36415; 80053; 81001; 82550; 84550; 85027; 85652; 86038; 86140; 86160; 86225; 86235

== ENCOUNTER → 2019-04-25 13:49 | Outpatient (CLI) | payer BC, SELFPAY ==
[2019-04-25 15:36] LABS: Absolute Lymphocyte Count 2.56 X10^3/uL (0.83-4.51); Absolute Neutrophil Count 5.3 X10^3/uL (2.0-7.7); Basophil# 0.06 X10^3/uL; Basophil% 0.7 % (0-1); Eosinophils% 2.2 % (0-5); Hematocrit 39.3 % (37-47); Lymphocyte # 2.56 X10^3/ul (4.0); Lymphocyte % 28.8 % (19-41); Mean Corp Hgb Conc 33.1 g/dL (32-36); Mean Corpuscular Hgb 30.6 pg (27.0-32.0); Mean Corpuscular Volume 92.5 fL (81-99); Mean Platelet Vol. 10.7 fl (6.2-12.0); Monocyte# 0.67 X10^3/uL; Monocyte% 7.5 % (0-10); NRBC Flagged by Analyzer 0 % (0-5); Neutrophil # 5.34 X10^3/uL (2.7-7.7); Neutrophil % 60.1 % (47-70); Platelet Count 272 K/mm3 (150-450); RBC Distribution Width CV 13.1 % (11.6-14.6); RBC Distribution Width SD 43.5 fl (35.1-43.9); Red Blood Count 4.25 M/mm3 (4.2-5.4); White Blood Count 8.9 K/mm3 (4.4-11.0)
[2019-04-25 15:55] LABS: Ferritin 30 ng/mL (8-252); Iron 78 ug/dL (50-170); Iron Binding Capacity,Total 415 ug/dL (250-450)
[2019-04-25 15:56] LABS: Vitamin D,25 Hydroxy 32.2 ng/mL (29.95-100.01)
== END ==
PROVIDERS: Family Provider Family Medicine; PCP Family Medicine; Referring Provider Family Medicine; Visit Provider Family Medicine
DX: E61.1 Iron deficiency (principal); R73.02 Impaired glucose tolerance (oral); E55.9 Vitamin D deficiency, unspecified
CPT/HCPCS: 36415; 82306; 82728; 83036; 83540; 83550; 85025

== ENCOUNTER → 2019-06-02 13:21 | Outpatient (CLI) | payer BC, SELFPAY ==
--- NOTE | 2019-06-02 13:40 | RAD_ITS ---
STUDY: X-RAY - THORACIC SPINE REASON FOR EXAM: Female, 48 years old. Chronic back pain x a few years. Back injury 5-6 years ago. TECHNIQUE: 3 view(s) of the thoracic spine were obtained. COMPARISON: None. FINDINGS: Normal kyphosis of the thoracic spine. There is no substantial scoliosis. There is multilevel endplate spondylosis of the thoracic vertebrae. There is mild multilevel disc space narrowing of a few levels of the mid thoracic spine. There is no demonstrated osseous destructive lesion or acute fracture. The paraspinal soft tissue structures are unremarkable. RAD/Thoracic Spine 3 Views IMPRESSION: Multilevel degenerative changes of the thoracic spine. Electronically Signed: Dao Ann MD at 18:57 EDT , Service support ,
== END ==
PROVIDERS: Family Provider Family Medicine; PCP Family Medicine; Referring Provider Psychiatry & Neurology Neurology; Visit Provider Psychiatry & Neurology Neurology
DX: M54.6 Pain in thoracic spine (principal)
CPT/HCPCS: 72072

== ENCOUNTER → 2019-07-17 17:30 | Outpatient (CLI) | payer BC, SELFPAY ==
--- NOTE | 2019-07-17 17:11 | BI_ITS ---
BILATERAL DIGITAL MAMMOGRAM WITH TOMOSYNTHESIS: Mediolateraloblique and craniocaudal views demonstrate no evidence of dominant parenchymal masses. No cluster of microcalcifications or architectural distortion is seen. No evidence of skin thickening is identified. There has been no significant change since 09/25/2017. Breast Density: The breast tissue is extremely dense which may lower the sensitivity of mammography. CAD was used to assist in final assessment. BI/SCREEN MAMM (CAD) W/HOLGER BILAT IMPRESSION: Stable bilateral screening mammogram. ASSESSMENT CATEGORY: FINAL ASSESSMENT: BI-RAD CATEGORY I (NEGATIVE) YEARLY MAMMOGRAPHY RECOMMENDED Approximately 10% of breast cancers are not detected by mammography. A normal mammogram should not delay biopsy of a clinically suspicious abnormality. [id number] Electronically Signed: Sky Son, at 7:44 EDT Tel , Service support ,
== END ==
PROVIDERS: Family Provider Family Medicine; PCP Family Medicine; Referring Provider Family Medicine; Visit Provider Family Medicine
DX: Z12.31 Encounter for screening mammogram for malignant neoplasm of breast (principal)
CPT/HCPCS: 77063; 77067

== ENCOUNTER 2019-07-21 13:00 | Outpatient (RCR) | payer BC, SELFPAY ==
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
--- NOTE | 2019-10-03 16:31 | HP.PT.NRP ---
HP - Discharge Summary (1) - Patient Information ROHAN HERNANDEZ was seen in my office for initial evaluation on 06/27/19. The following Plan of Care was established for this patient: Initial Frequency: 2-3x /Week Initial Duration: 4-6 Weeks - Anticipated Interventions Patient/Client Instruction: Educate patient on: Condition, Plan of Care, Risk Factors, Benefits of Fitness Program For the Purpose of:: To improve self management Therapeutic Exercise to Include: Strength training, Postural training, Flexibilty training, Active ROM, Scapular Strength/Stabilization For the Purpose of:: To decrease pain, To increase ROM, To improve muscle performance and motor function, To increase tolerance to activity/condition/position, To improve ability of physical actions for home/community/work/leisure This patient was last seen in our office 07/23/19. Pertinent comments regarding their Physical therapy will appear below: This patient has not returned to Physical Therapy and is appropriate to return to MD for further follow-up as needed. At this point I will be discontinuing this patient from physical therapy. I would be happy to see this patient again in the future if found appropriate by the physician. Thank you! Rena Au, PT, Cert MDT
== END 2019-07-21 19:00 | disposition home or self-care (01) ==
LOC: PT 13:00
PROVIDERS: Family Provider Family Medicine; PCP Family Medicine; Referring Provider Psychiatry & Neurology Neurology; Visit Provider Psychiatry & Neurology Neurology
DX: M54.2 Cervicalgia (principal)
CPT/HCPCS: 97012; 97035; 97110; 97140; 97162; 97530

== ENCOUNTER → 2019-07-24 09:19 | Outpatient (CLI) | payer BC, SELFPAY ==
[2019-07-24 10:19] LABS: Absolute Lymphocyte Count 2.26 X10^3/uL (0.83-4.51); Absolute Neutrophil Count 5.1 X10^3/uL (2.0-7.7); Basophil# 0.08 X10^3/uL; Basophil% 0.9 % (0-1); Eosinophils% 3.5 % (0-5); Hematocrit 40.9 % (37-47); Hemoglobin 13.3 g/dL (12.0-15.0); Lymphocyte # 2.26 X10^3/ul (4.0); Lymphocyte % 26.6 % (19-41); Mean Corp Hgb Conc 32.5 g/dL (32-36); Mean Corpuscular Volume 92.1 fL (81-99); Mean Platelet Vol. 10.4 fl (6.2-12.0); Monocyte# 0.68 X10^3/uL; NRBC Flagged by Analyzer 0 % (0-5); Neutrophil # 5.07 X10^3/uL (2.7-7.7); Neutrophil % 59.8 % (47-70); Platelet Count 310 K/mm3 (150-450); RBC Distribution Width CV 13.9 % (11.6-14.6); RBC Distribution Width SD 46.7 fl (35.1-43.9); Red Blood Count 4.44 M/mm3 (4.2-5.4); White Blood Count 8.5 K/mm3 (4.4-11.0)
[2019-07-24 10:34] LABS: Hemoglobin A1c 6.1 % (4.2-6.3)
[2019-07-24 10:39] LABS: Anion Gap 7 (5-15); BUN 14 mg/dL (7-18); BUN/Creat Ratio 19.4 RATIO (10-20); Calcium,Total 9.5 mg/dL (8.5-10.1); Chloride 105 mmol/L (98-107); Creatinine, Serum 0.72 mg/dL (0.55-1.02); EST Glomerular Filtration Rate 92 mL/min (>60); Est Glom Filt Rate - Afr Amer 111 mL/min (>60); Ferritin 19 ng/mL (8-252); Glucose 104 mg/dL (74-106); Iron 99 ug/dL (50-170); Iron Binding Capacity,Total 482 ug/dL (250-450); Potassium 4.2 mmol/L (3.5-5.1); Sodium Level 138 mmol/L (136-145)
[2019-07-24 10:55] LABS: Vitamin D,25 Hydroxy 45.2 ng/mL (29.95-100.01)
== END ==
PROVIDERS: Family Provider Family Medicine; PCP Family Medicine; Referring Provider Family Medicine; Visit Provider Family Medicine
DX: E87.6 Hypokalemia (principal); E61.1 Iron deficiency; R73.02 Impaired glucose tolerance (oral); E55.9 Vitamin D deficiency, unspecified
CPT/HCPCS: 36415; 80048; 82306; 82728; 83036; 83540; 83550; 85025

== ENCOUNTER → 2019-11-20 11:47 | Outpatient (CLI) | payer BC, SELFPAY ==
[2019-11-20 11:52] LABS: Bacteria 0 SEEN /hpf (None Seen); Mucous, Urine 0 SEEN /hpf (<or=2+); Red Blood Cells-Urine 0 SEEN /hpf (0-5); White Blood Cells 0 SEEN /hpf (0-5)
[2019-11-20 14:20] LABS: Erythrocyte Sedimentation Rate 4 mm/hr (0-20)
[2019-11-20 14:21] LABS: Color, Urine Straw (Yellow); Glucose, Dipstick Normal (Normal); Ketone-Dipstick Negative (Negative); Leukocyte Esterase-Dipstick Negative /ul (Negative); Nitrite-Dipstick Negative (Negative); Occult Blood-Urine Negative /ul (Negative); Protein-Dipstick Negative (Negative); Urine Bilirubin Dipstick Negative (Negative); Urine Clarity Clear (Clear); Urine Urobilinogen Normal (Normal)
[2019-11-20 14:22] LABS: Absolute Lymphocyte Count 3.17 X10^3/uL (0.83-4.51); Absolute Neutrophil Count 10.2 X10^3/uL (2.0-7.7); Basophil% 0.7 % (0-1); Eosinophil# 0.27 X10^3/uL; Eosinophils% 1.8 % (0-5); Hematocrit 40.6 % (37-47); Hemoglobin 12.8 g/dL (12.0-15.0); Lymphocyte # 3.17 X10^3/ul (4.0); Lymphocyte % 21.6 % (19-41); Mean Corp Hgb Conc 31.5 g/dL (32-36); Mean Corpuscular Hgb 29.2 pg (27.0-32.0); Mean Corpuscular Volume 92.5 fL (81-99); Mean Platelet Vol. 10.4 fl (6.2-12.0); Monocyte# 0.77 X10^3/uL; Monocyte% 5.2 % (0-10); NRBC Flagged by Analyzer 0 % (0-5); Neutrophil # 10.22 X10^3/uL (2.7-7.7); Neutrophil % 69.7 % (47-70); Platelet Count 296 K/mm3 (150-450); RBC Distribution Width CV 14.1 % (11.6-14.6); RBC Distribution Width SD 47.5 fl (35.1-43.9); Red Blood Count 4.39 M/mm3 (4.2-5.4); White Blood Count 14.7 K/mm3 (4.4-11.0)
[2019-11-20 14:35] LABS: Squamous Epithelial Cells - UA 0-5 SEEN /hpf (5-10)
[2019-11-20 14:41] LABS: ALB/GLOB Ratio 1.1 RATIO (0.9-2.4); AST(SGOT) 15 U/L (15-37); Alanine Aminotransfer ALT/SGPT 31 U/L (13-56); Alkaline Phosphatase 107 U/L (45-117); Anion Gap 7 (5-15); BUN 17 mg/dL (7-18); BUN/Creat Ratio 25.2 RATIO (10-20); CPK Total, Creatine Kinase 46 U/L (26-192); CRP < 2.90 mg/L (0.0-3.0); Calcium,Total 9.8 mg/dL (8.5-10.1); Chloride 101 mmol/L (98-107); Creatinine, Serum 0.68 mg/dL (0.55-1.02); EST Glomerular Filtration Rate 99 mL/min (>60); Est Glom Filt Rate - Afr Amer 119 mL/min (>60); Globulin 3.8 g/dL (2.2-4.2); Glucose 74 mg/dL (74-106); Potassium 3.8 mmol/L (3.5-5.1); Protein, Total 7.8 g/dL (6.4-8.2); Sodium Level 136 mmol/L (136-145)
[2019-11-21 11:27] LABS: Complement C3 142 mg/dL (82-167)
== END ==
PROVIDERS: PCP Family Medicine; Referring Provider Family Medicine; Visit Provider Internal Medicine Rheumatology
DX: M32.9 Systemic lupus erythematosus, unspecified (principal); K31.84 Gastroparesis; E87.6 Hypokalemia; M79.7 Fibromyalgia; M19.041 Primary osteoarthritis, right hand; M19.042 Primary osteoarthritis, left hand; M51.36 Other intervertebral disc degeneration, lumbar region; M50.30 Other cervical disc degeneration, unspecified cervical region; M47.816 Spondylosis without myelopathy or radiculopathy, lumbar region; M50.20 Other cervical disc displacement, unspecified cervical region; R76.8 Other specified abnormal immunological findings in serum; Z79.1 Long term (current) use of non-steroidal anti-inflammatories (NSAID); Z78.9 Other specified health status; Z87.39 Personal history of other diseases of the musculoskeletal system and connective tissue; Z83.3 Family history of diabetes mellitus
CPT/HCPCS: 36415; 80053; 81001; 82550; 85025; 85652; 86140; 86160

== ENCOUNTER → 2019-11-27 08:58 | Outpatient (CLI) | payer BC, SELFPAY ==
[2019-11-27 10:36] LABS: Vitamin D,25 Hydroxy 44.8 ng/mL (29.95-100.01)
[2019-11-27 11:20] LABS: Cholesterol 293 mg/dL (200); High Density Lipoprotein 46 mg/dL; Magnesium 2.1 mg/dL (1.6-2.6); Triglycerides 498 mg/dL
== END ==
PROVIDERS: PCP Family Medicine; Referring Provider Family Medicine; Visit Provider Family Medicine
DX: R73.02 Impaired glucose tolerance (oral) (principal); E78.5 Hyperlipidemia, unspecified; I47.9 Paroxysmal tachycardia, unspecified; E55.9 Vitamin D deficiency, unspecified
CPT/HCPCS: 36415; 80061; 82306; 83036; 83735

== ENCOUNTER → 2020-03-24 08:47 | Outpatient (CLI) | payer BC, SELFPAY ==
[2020-03-24 10:36] LABS: ALB/GLOB Ratio 1.1 RATIO (0.9-2.4); AST(SGOT) 18 U/L (15-37); Alanine Aminotransfer ALT/SGPT 32 U/L (13-56); Albumin, Serum 4.1 g/dL (3.2-5.0); Alkaline Phosphatase 111 U/L (45-117); Anion Gap 6 (5-15); BUN 12 mg/dL (7-18); Calcium,Total 9.6 mg/dL (8.5-10.1); Chloride 106 mmol/L (98-107); Cholesterol 206 mg/dL (200); Creatinine, Serum 0.67 mg/dL (0.55-1.02); EST Glomerular Filtration Rate 100 mL/min (>60); Est Glom Filt Rate - Afr Amer 121 mL/min (>60); Globulin 3.7 g/dL (2.2-4.2); Glucose 98 mg/dL (74-106); High Density Lipoprotein 48 mg/dL; Potassium 3.7 mmol/L (3.5-5.1); Protein, Total 7.8 g/dL (6.4-8.2); Sodium Level 139 mmol/L (136-145); Triglycerides 145 mg/dL; Very Low Density Lipoprotein 29 mg/dL (5-40)
== END ==
PROVIDERS: PCP Family Medicine; Visit Provider Family Medicine
DX: E78.5 Hyperlipidemia, unspecified (principal); R73.02 Impaired glucose tolerance (oral)
CPT/HCPCS: 36415; 80053; 80061; 83036

== ENCOUNTER → 2020-05-31 16:13 | Outpatient (CLI) | payer BC, SELFPAY ==
[2020-05-31 16:18] LABS: Bacteria 0 SEEN /hpf (None Seen); Mucous, Urine 0 SEEN /hpf (<or=2+); Red Blood Cells-Urine 0 SEEN /hpf (0-5)
[2020-05-31 18:48] LABS: Absolute Lymphocyte Count 2.07 X10^3/uL (0.83-4.51); Absolute Neutrophil Count 6.1 X10^3/uL (2.0-7.7); Basophil# 0.07 X10^3/uL; Basophil% 0.8 % (0-1); Eosinophil# 0.29 X10^3/uL; Eosinophils% 3.2 % (0-5); Hematocrit 38.8 % (37-47); Hemoglobin 11.7 g/dL (12.0-15.0); Lymphocyte # 2.07 X10^3/ul (4.0); Mean Corp Hgb Conc 30.2 g/dL (32-36); Mean Corpuscular Hgb 26.2 pg (27.0-32.0); Mean Platelet Vol. 10.9 fl (6.2-12.0); Monocyte# 0.44 X10^3/uL; Monocyte% 4.9 % (0-10); NRBC Flagged by Analyzer 0 % (0-5); Neutrophil # 6.06 X10^3/uL (2.7-7.7); Neutrophil % 67.3 % (47-70); Platelet Count 346 K/mm3 (150-450); RBC Distribution Width CV 14.7 % (11.6-14.6); RBC Distribution Width SD 46.9 fl (35.1-43.9); Red Blood Count 4.46 M/mm3 (4.2-5.4)
[2020-05-31 18:56] LABS: ALB/GLOB Ratio 1.2 RATIO (0.9-2.4); AST(SGOT) 28 U/L (15-37); Alanine Aminotransfer ALT/SGPT 47 U/L (13-56); Albumin, Serum 4.2 g/dL (3.2-5.0); Alkaline Phosphatase 104 U/L (45-117); Anion Gap 7 (5-15); BUN 10 mg/dL (7-18); BUN/Creat Ratio 14.9 RATIO (10-20); CPK Total, Creatine Kinase 49 U/L (26-192); CRP < 2.90 mg/L (0.0-3.0); Calcium,Total 9.6 mg/dL (8.5-10.1); Chloride 105 mmol/L (98-107); Creatinine, Serum 0.67 mg/dL (0.55-1.02); EST Glomerular Filtration Rate 99 mL/min (>60); Est Glom Filt Rate - Afr Amer 120 mL/min (>60); Globulin 3.6 g/dL (2.2-4.2); Glucose 131 mg/dL (74-106); Potassium 3.5 mmol/L (3.5-5.1); Protein, Total 7.8 g/dL (6.4-8.2); Sodium Level 138 mmol/L (136-145)
[2020-05-31 19:04] LABS: Erythrocyte Sedimentation Rate 11 mm/hr (0-20)
[2020-05-31 19:16] LABS: Color, Urine Yellow (Yellow); Glucose, Dipstick Normal (Normal); Ketone-Dipstick Negative (Negative); Leukocyte Esterase-Dipstick Negative /ul (Negative); Nitrite-Dipstick Negative (Negative); Occult Blood-Urine Negative /ul (Negative); Protein-Dipstick Negative (Negative); Urine Bilirubin Dipstick Negative (Negative); Urine Clarity Clear (Clear); Urine Urobilinogen Normal (Normal)
[2020-05-31 19:36] LABS: Vitamin D,25 Hydroxy 53.4 ng/mL
[2020-05-31 20:20] LABS: Squamous Epithelial Cells - UA 5-10 SEEN /hpf (5-10); White Blood Cells 0-5 SEEN /hpf (0-5)
[2020-06-02 09:03] LABS: Complement C3 162 mg/dL (82-167)
[2020-06-03 15:32] LABS: Vitamin D 1,25-Dihydroxy 80.7 pg/mL (19.9-79.3)
== END ==
PROVIDERS: PCP Family Medicine; Referring Provider Family Medicine; Visit Provider Internal Medicine Rheumatology
DX: M32.9 Systemic lupus erythematosus, unspecified (principal); R76.8 Other specified abnormal immunological findings in serum; K31.84 Gastroparesis; E55.9 Vitamin D deficiency, unspecified; M79.7 Fibromyalgia; M50.30 Other cervical disc degeneration, unspecified cervical region; M50.20 Other cervical disc displacement, unspecified cervical region; M51.36 Other intervertebral disc degeneration, lumbar region; M19.041 Primary osteoarthritis, right hand; M19.042 Primary osteoarthritis, left hand; M47.816 Spondylosis without myelopathy or radiculopathy, lumbar region; D72.829 Elevated white blood cell count, unspecified; Z78.9 Other specified health status; Z79.2 Long term (current) use of antibiotics; Z79.1 Long term (current) use of non-steroidal anti-inflammatories (NSAID)
CPT/HCPCS: 36415; 80053; 81001; 82306; 82550; 82652; 85025; 85652; 86140; 86160

== ENCOUNTER → 2020-07-22 12:16 | Outpatient (CLI) | payer BC, SELFPAY ==
[2020-07-15 11:32] VITALS: BMI 32.4
[2020-07-22 12:48] VITALS: PULSE 110; PULSE 113; PULSE 118; PULSE 122; PULSE 124; PULSE 125; PULSE 126; O2SAT 94; O2SAT 95; O2SAT 96; O2SAT 97
--- NOTE | 2020-07-22 15:30 | PCM.PSN.6M ---
PSN 6 Minute Walk Test - 6 Minute Walk Test 6 Minute Walk Test: 6 Minute Walk Test PSN:6-Minute Walk Test Start: 07/22/20 12:47 Freq: Status: Active Protocol: [id number] Document 07/22/20 12:48 HEIDY (Rec: 07/22/20 12:50 LUC[place]ON [id number]) 6 Minute Walk Test Date Performed 07/22/20 Time Performed 12:30 Height 5 ft Weight: 73.482 kg Weight in Pounds 162.[address]: Gamal Bridges Assistive device used: None Pre-test Oxygen Delivery Method Room Air Pulse Ox (%) 97 Pulse Rate (60-100 beats/min) 110 H Dyspnea Jefferson Scale (0-10) 0.5 Exertion Jefferson Scale (6-20) 6 1st minute Oxygen Delivery Method Room Air Pulse Ox (%) 94 Pulse Rate (60-100 beats/min) 118 H 2nd minute Oxygen Delivery Method Room Air Pulse Ox (%) 95 Pulse Rate (60-100 beats/min) 122 H 3rd minute Oxygen Delivery Method Room Air Pulse Ox (%) 96 Pulse Rate (60-100 beats/min) 124 H 4th minute Oxygen Delivery Method Room Air Pulse Ox (%) 96 Pulse Rate (60-100 beats/min) 125 H 5th minute Oxygen Delivery Method Room Air Pulse Ox (%) 96 Pulse Rate (60-100 beats/min) 126 H 6th minute Oxygen Delivery Method Room Air Pulse Ox (%) 95 Pulse Rate (60-100 beats/min) 126 H Dyspnea Jefferson Scale (0-10) 3 Exertion Jefferson Scale (6-20) 12 Post-test Oxygen Delivery Method Room Air Pulse Ox (%) 97 Pulse Rate (60-100 beats/min) 113 H Full Laps Walked 19 Partial Lap, Number of Tiles Walked 26 Total Distance Walked (ft) 1147 - Interpretation Interpretation: The patient was able to ambulate 1147 feet over the course of 6 minutes on room air with no assistive devices or breaks. The patient experienced no significant desaturation, but did have significant tachycardia as high as 126 bpm. These findings are consistent with a cardiovascular limitation exercise tolerance. - Recommendations Recommendations: No supplemental oxygen is indicated at this time.
== END ==
PROVIDERS: PCP Family Medicine; Referring Provider Internal Medicine Critical Care Medicine; Visit Provider Internal Medicine Critical Care Medicine
DX: J45.909 Unspecified asthma, uncomplicated (principal)
CPT/HCPCS: 94618

== ENCOUNTER → 2020-07-29 10:30 | Outpatient (CLI) | payer BC, SELFPAY ==
[2020-07-15 11:32] VITALS: BMI 32.4
--- NOTE | 2020-07-30 10:23 | PFT ---
INTRODUCTION: The patient is a 49-year-old female that presents for pulmonary function studies secondary to a diagnosis of asthma. Respiratory therapy reports good patient effort. Bronchodilators were used during testing. INTERPRETATION: Forced expiration spirometry demonstrates no evidence of a large airways obstructive ventilatory defect. There was no significant response to aerosolized bronchodilators. Spirograms are of good quality and plateau normally. Body plethysmography was performed and reveals lung volumes to be within normal limits. Diffusing capacity by single breath CO is also within normal limits. IMPRESSION: Grossly normal pulmonary function studies.
== END ==
PROVIDERS: PCP Family Medicine; Referring Provider Internal Medicine Critical Care Medicine; Visit Provider Internal Medicine Critical Care Medicine
DX: J45.909 Unspecified asthma, uncomplicated (principal)
CPT/HCPCS: 94060; 94726; 94729

== ENCOUNTER → 2020-07-30 20:18 | Outpatient (CLI) | payer BC, SELFPAY ==
[2020-07-15 11:32] VITALS: BMI 32.4
== END ==
PROVIDERS: PCP Family Medicine; Referring Provider Internal Medicine Critical Care Medicine; Visit Provider Internal Medicine Critical Care Medicine
DX: G47.33 Obstructive sleep apnea (adult) (pediatric) (principal)
CPT/HCPCS: 95810

== ENCOUNTER → 2020-09-13 08:15 | Outpatient (CLI) | payer BC, SELFPAY ==
[2020-09-13 11:09] LABS: ALB/GLOB Ratio 1.2 RATIO (0.9-2.4); AST(SGOT) 25 U/L (15-37); Alanine Aminotransfer ALT/SGPT 34 U/L (13-56); Albumin, Serum 3.7 g/dL (3.2-5.0); Alkaline Phosphatase 94 U/L (45-117); Anion Gap 9 (5-15); BUN 7 mg/dL (7-18); BUN/Creat Ratio 10.7 RATIO (10-20); Calcium,Total 9.1 mg/dL (8.5-10.1); Chloride 111 mmol/L (98-107); Cholesterol 170 mg/dL (200); Creatinine, Serum 0.66 mg/dL (0.55-1.02); EST Glomerular Filtration Rate 101 mL/min (>60); Est Glom Filt Rate - Afr Amer 123 mL/min (>60); Glucose 129 mg/dL (74-106); Hemoglobin A1c 6.5 % (3.8-5.6); High Density Lipoprotein 38 mg/dL; Potassium 3.6 mmol/L (3.5-5.1); Protein, Total 6.7 g/dL (6.4-8.2); Sodium Level 143 mmol/L (136-145); Triglycerides 232 mg/dL; Very Low Density Lipoprotein 46 mg/dL (5-40)
[2020-09-13 17:50] LABS: Absolute Lymphocyte Count 2.01 X10^3/uL (0.83-4.51); Absolute Neutrophil Count 3.3 X10^3/uL (2.0-7.7); Basophil# 0.05 X10^3/uL; Basophil% 0.8 % (0-1); Eosinophil# 0.24 X10^3/uL; Hematocrit 34.6 % (37-47); Hemoglobin 10.1 g/dL (12.0-15.0); Lymphocyte # 2.01 X10^3/ul (4.0); Lymphocyte % 33.3 % (19-41); Mean Corp Hgb Conc 29.2 g/dL (32-36); Mean Corpuscular Hgb 24.3 pg (27.0-32.0); Mean Corpuscular Volume 83.4 fL (81-99); Mean Platelet Vol. 10.4 fl (6.2-12.0); Monocyte# 0.37 X10^3/uL; Monocyte% 6.1 % (0-10); NRBC Flagged by Analyzer 0 % (0-5); Neutrophil # 3.33 X10^3/uL (2.7-7.7); Neutrophil % 55.1 % (47-70); Platelet Count 242 K/mm3 (150-450); RBC Distribution Width CV 16.4 % (11.6-14.6); RBC Distribution Width SD 48.6 fl (35.1-43.9); Red Blood Count 4.15 M/mm3 (4.2-5.4)
== END ==
PROVIDERS: PCP Family Medicine; Referring Provider Family Medicine; Visit Provider Family Medicine
DX: K31.84 Gastroparesis (principal); E78.5 Hyperlipidemia, unspecified; R73.02 Impaired glucose tolerance (oral)
CPT/HCPCS: 36415; 80053; 80061; 83036; 85025

== ENCOUNTER → 2020-09-23 16:41 | Outpatient (CLI) | payer BC, SELFPAY ==
--- NOTE | 2020-09-23 16:47 | MRI_ITS ---
STUDY: MRI LUMBAR SPINE WITHOUT CONTRAST REASON FOR EXAM: Female, 50 years old. LOW BACK PAIN, BILAT LEG PAIN x years TECHNIQUE: Standardized fat and water weighted pulse sequences were obtained in the sagittal and axial planes. COMPARISON: None FINDINGS: T12-L1: Normal endplates. Normal disc height, hydration and morphology. Normal bilateral facet joints. Normal central canal and bilateral lateral recesses. Normal bilateral intervertebral neural foramina. Normal lumbar lordosis. There is no substantial scoliosis. Normal conus medullaris that terminates at the L1 level. L1-2: Normal endplates. Normal disc height, hydration and morphology. Normal bilateral facet joints. Normal central canal and bilateral lateral recesses. Normal bilateral intervertebral neural foramina. L2-3: Normal endplates. Normal disc height, hydration and morphology. Normal bilateral facet joints. Normal central canal and bilateral lateral recesses. Normal bilateral intervertebral neural foramina. L3-4: Normal endplates. Normal disc height, hydration and morphology. Mild degenerative changes in the facet joints. Normal central canal and bilateral lateral recesses. Normal bilateral intervertebral neural foramina. L4-5: Small right foraminal disc herniation. Decreased disc height and small circumferential disc bulge. Degenerative changes of the bilateral facet joints. Mild narrowing of the central canal and right neural foramen. L5-S1: Normal endplates. Normal disc height, hydration and morphology. Mild degenerative changes in the facet joints. Normal central canal and bilateral lateral recesses. Normal bilateral intervertebral neural foramina. Normal visualized sacral ala. Normal visualized paraspinous soft tissue structures. MRI/Spine Lumbar (Routine) IMPRESSION: Small right foraminal disc herniation at L4-5, mild narrowing of the central canal and right neural foramen. Electronically Signed: Richard Alvarez, at 3:31 EST Tel , Service support ,
== END ==
PROVIDERS: PCP Family Medicine; Referring Provider Nurse Practitioner Family; Visit Provider Nurse Practitioner Family
DX: M51.37 Other intervertebral disc degeneration, lumbosacral region (principal); M47.817 Spondylosis without myelopathy or radiculopathy, lumbosacral region
CPT/HCPCS: 72148

== ENCOUNTER → 2020-09-24 15:06 | Outpatient (CLI) | payer BC, SELFPAY ==
[2020-09-24 17:46] LABS: Vitamin B12 386 pg/mL (211-911)
[2020-09-24 18:01] LABS: Ferritin 38 ng/mL (8-252); Iron 241 ug/dL (50-170); Iron Binding Capacity,Total 504 ug/dL (250-450)
== END ==
PROVIDERS: PCP Family Medicine; Referring Provider Family Medicine; Visit Provider Family Medicine
DX: D64.9 Anemia, unspecified (principal)
CPT/HCPCS: 36415; 82607; 82728; 82746; 83540; 83550

== ENCOUNTER → 2020-09-27 16:39 | Outpatient (CLI) | payer BC, SELFPAY ==
[2020-09-29 15:33] LABS: Transferrin 369 mg/dL (192-364)
== END ==
PROVIDERS: PCP Family Medicine; Referring Provider Family Medicine; Visit Provider Family Medicine
DX: E83.19 Other disorders of iron metabolism (principal)
CPT/HCPCS: 36415; 84466

== ENCOUNTER → 2020-12-17 11:51 | Outpatient (CLI) | payer BC, SELFPAY | PROVIDERS: PCP Family Medicine; Referring Provider Family Medicine; Visit Provider Family Medicine | DX: Z00.00 Encounter for general adult medical examination without abnormal findings (principal) ==

== ENCOUNTER → 2020-12-23 16:03 | Outpatient (CLI) | payer BC, SELFPAY ==
[2020-12-23 17:37] LABS: Absolute Lymphocyte Count 2.77 X10^3/uL (0.83-4.51); Absolute Neutrophil Count 4.3 X10^3/uL (2.0-7.7); Basophil# 0.07 X10^3/uL; Basophil% 0.9 % (0-1); Eosinophil# 0.23 X10^3/uL; Eosinophils% 2.9 % (0-5); Hematocrit 39.7 % (37-47); Hemoglobin 12.4 g/dL (12.0-15.0); Lymphocyte # 2.77 X10^3/ul (4.0); Lymphocyte % 34.6 % (19-41); Mean Corp Hgb Conc 31.2 g/dL (32-36); Mean Corpuscular Hgb 27.6 pg (27.0-32.0); Mean Corpuscular Volume 88.2 fL (81-99); Mean Platelet Vol. 10.2 fl (6.2-12.0); Monocyte% 7.5 % (0-10); NRBC Flagged by Analyzer 0 % (0-5); Neutrophil # 4.29 X10^3/uL (2.7-7.7); Neutrophil % 53.6 % (47-70); Platelet Count 276 K/mm3 (150-450); RBC Distribution Width CV 16.3 % (11.6-14.6); RBC Distribution Width SD 52.5 fl (35.1-43.9)
[2020-12-23 18:09] LABS: Hemoglobin A1c 5.9 % (3.8-5.6)
[2020-12-23 18:22] LABS: ALB/GLOB Ratio 1.2 RATIO (0.9-2.4); AST(SGOT) 30 U/L (15-37); Alanine Aminotransfer ALT/SGPT 44 U/L (13-56); Alkaline Phosphatase 103 U/L (45-117); Anion Gap 8 (5-15); BUN 14 mg/dL (7-18); BUN/Creat Ratio 18.4 RATIO (10-20); Calcium,Total 9.1 mg/dL (8.5-10.1); Chloride 102 mmol/L (98-107); Cholesterol 203 mg/dL (200); Creatinine, Serum 0.76 mg/dL (0.55-1.02); EST Glomerular Filtration Rate 86 mL/min (>60); Est Glom Filt Rate - Afr Amer 104 mL/min (>60); Globulin 3.4 g/dL (2.2-4.2); Glucose 88 mg/dL (74-106); High Density Lipoprotein 39 mg/dL; Potassium 3.8 mmol/L (3.5-5.1); Protein, Total 7.4 g/dL (6.4-8.2); Sodium Level 138 mmol/L (136-145); Thyroid Stim Hormone (TSH) 1.88 uIU/mL (0.358-3.74); Triglycerides 578 mg/dL
== END ==
PROVIDERS: PCP Family Medicine; Referring Provider Family Medicine; Visit Provider Family Medicine
DX: E11.9 Type 2 diabetes mellitus without complications (principal)
CPT/HCPCS: 36415; 80053; 80061; 83036; 84443; 85025

== ENCOUNTER → 2021-01-13 10:13 | Outpatient (CLI) | payer BC, SELFPAY ==
[2021-01-13 12:52] LABS: Cholesterol 146 mg/dL (200); High Density Lipoprotein 45 mg/dL; Triglycerides 219 mg/dL; Very Low Density Lipoprotein 44 mg/dL (5-40)
== END ==
PROVIDERS: PCP Family Medicine; Referring Provider Family Medicine; Visit Provider Family Medicine
DX: E11.9 Type 2 diabetes mellitus without complications (principal)
CPT/HCPCS: 36415; 80061

== ENCOUNTER → 2021-02-01 16:52 | Outpatient (CLI) | payer BC, SELFPAY ==
[2021-02-01 16:59] LABS: Bacteria 0 SEEN /hpf (None Seen); Mucous, Urine 0 SEEN /hpf (<or=2+); Red Blood Cells-Urine 0 SEEN /hpf (0-5); Squamous Epithelial Cells - UA 0 SEEN /hpf (5-10); White Blood Cells 0 SEEN /hpf (0-5)
[2021-02-01 17:51] LABS: Color, Urine Yellow (Yellow); Glucose, Dipstick Normal (Normal); Ketone-Dipstick Negative (Negative); Leukocyte Esterase-Dipstick Negative /ul (Negative); Nitrite-Dipstick Negative (Negative); Occult Blood-Urine Negative /ul (Negative); Protein-Dipstick Negative (Negative); Specific Gravity, Urine 1.005 (1.002-1.030); Urine Bilirubin Dipstick Negative (Negative); Urine Clarity Clear (Clear); Urine Urobilinogen Normal (Normal)
[2021-02-01 18:29] LABS: Anion Gap 10 (5-15); BUN 12 mg/dL (7-18); Calcium,Total 9.6 mg/dL (8.5-10.1); Chloride 103 mmol/L (98-107); Creatinine, Serum 0.67 mg/dL (0.55-1.02); EST Glomerular Filtration Rate 99 mL/min (>60); Est Glom Filt Rate - Afr Amer 120 mL/min (>60); Glucose 86 mg/dL (74-106); Sodium Level 140 mmol/L (136-145)
== END ==
PROVIDERS: PCP Family Medicine; Referring Provider Family Medicine; Visit Provider Family Medicine
DX: I10 Essential (primary) hypertension (principal)
CPT/HCPCS: 36415; 80048; 81001

== ENCOUNTER → 2021-02-18 08:47 | Outpatient (CLI) | payer BC, SELFPAY ==
--- NOTE | 2021-02-18 08:51 | RDU_ITS ---
Reason For Study: HTN Right Renal Artery Left Renal Artery Right renal artery ostium 72.9/23.4 Left renal artery ostium 75.9/24.7 RSV/EDV. PSV/EDV. Right renal artery proximal Left renal artery proximal PSV/EDV 85.6/31.9 PSV/EDV. 80.1/27.1 . Right renal artery mid 104.4/42.1 Left renal artery mid 109.5/32.7 PSV/EDV. PSV/EDV . Right renal artery distal 88.9/29.3 Left renal artery distal 131.5/56.8 PSV/EDV. PSV/EDV. Right RAR 1.25. Left RAR 1.58. Right Renal Parenchyma Left Renal Parenchyma Upper Pole Medula 27.8/10.2 Left upper pole medulla 27.4/10.4 PSV/EDV. PSV/EDV . Right upper pole medulla EDR 0.37 . Left upper pole medulla EDR 0.38 . Right upper pole medulla R.I. Left upper pole medulla R.I. 0.62 . 0.63 . UP Cortex 16.4/6.5 PSV/EDV. Upper Thuan Cortx 15.2/5.3 PSV/EDV. Left upper pole cortex EDR 0.40 . Right upper pole cortex EDR 0.35 . Left upper pole cortex R.I. 0.60 . Right upper pole cortex R.I. 0.65 . Left lower Pole medulla 26.9/10.4 Right lower Pole medulla 28.4/9.7 PSV/EDV . PSV/EDV . Left lower pole medulla EDR 0.39 . Right lower pole medulla EDR 0.34 . Left lower pole medulla R.I. 0.61 . Right lower pole medulla R.I. Lower Pole Cortx 16.4/6.5 PSV/EDV. 0.66 . Left lower pole cortex EDR 0.40 . Lower Pole Cortex 14.1/5.3 PSV/EDV. Left lower pole cortex R.I. 0.60 . Right lower pole cortex EDR 0.38 . Left Renal Hilar Right lower pole cortex R.I. 0.62 . LT Hilar avg 50.4/14.2 PSV/EDV . Right Renal Hilar Left hilar acceleration time 50 Right Hilar avg 61/24.8 PSV/EDV. m/sec. Right hilar acceleration time 30 Left Renal Dimensions m/sec. Left kidney size 11.07 cm . Right Renal Dimensions Left cortical dimension 1.32 cm . Right kidney size 11.67 cm . Right cortical dimension 1.57 cm . Aorta Proximal abdominal aorta 1.32 x 1.35 cm . Proximal abdominal aorta peak systolic velocity is 83.3 cm/sec . Distal abdominal aorta 1.29 x 1.25 cm . Distal abdominal aorta peak systolic velocity is 88.8 cm/sec . VL/Renal Artery Duplex Ultrasound Interpretation Summary Less then 60% stenosis bilateral renal arteries Right renal length 11.67 cm Left renal length 11.07 cm Proximal abdominal aorta maximal 1.32 x 1.35 cm in diameter Normal arterial flow rate in the abdominal aorta Ordering Physician: Sky Mei Referring Physician: Sky Mei Performed By: Alessandra Squires RVT
--- NOTE | 2021-02-18 09:33 | US_ITS ---
STUDY: RENAL ULTRASOUND - COMPLETE REASON FOR EXAM: Female, 50 years old. HTN history of lupus. TECHNIQUE: Ultrasound evaluation of the kidneys was performed with real-time and static uriarte-scale imaging. COMPARISON: None. FINDINGS: RIGHT KIDNEY: Normal location of the right kidney, which is normal in size. The right kidney measures 11.5 cm x 5.4 cm x 5.7 cm. There is a normal cortex of the right kidney. The renal cortex measures 2.0 cm. There is no right renal mass or cyst. There are no right renal calculi. There is no right hydronephrosis. DISTAL RIGHT URETER: There is non-visualization of the distal right ureter. There is no demonstrated right ureterovesical junction calculus. There is a visualized right ureteral jet. LEFT KIDNEY: Normal location of the left kidney, which is normal in size. The left kidney measures 12.4 cm x 4.8 cm x 5.3 cm. There is a normal cortex of the left kidney. The renal cortex measures 1.0 cm. There is a 2.8 cm x 2.3 cm x 2.6 cm nodular density arising from the lateral inferior pole of the left kidney. Correlation with a CT scan is recommended for further evaluation possible neoplastic process. There are no left renal calculi. There is no left hydronephrosis. DISTAL LEFT URETER: There is non-visualization of the distal left ureter. There is no demonstrated left ureterovesical junction calculus. There is a visualized left ureteral jet. BLADDER: The distended urinary bladder has a volume of 112 ml. There is a normal wall thickness of the distended urinary bladder. There is no demonstrated mass within the urinary bladder. There are no demonstrated bladder calculi. US/Kidney and Bladder IMPRESSION: Findings suggestive of a 2.8 cm x 2.3 cm x 2.6 cm hypoechoic nodule arising from the lateral inferior pole of the left kidney. Correlation with CT scan is recommended. Electronically Signed: Obinna Ennis MD at 13:40 EDT , Service support ,
== END ==
PROVIDERS: PCP Family Medicine; Referring Provider Family Medicine; Visit Provider Family Medicine
DX: I10 Essential (primary) hypertension (principal)
CPT/HCPCS: 76770; 93975

== ENCOUNTER → 2021-02-28 07:25 | Outpatient (CLI) | payer BC, SELFPAY ==
--- NOTE | 2021-02-28 07:27 | CT_ITS ---
STUDY: CT ABDOMEN AND PELVIS WITH CONTRAST REASON FOR EXAM: Female, 50 years old. Renal lesion noted on previous ultrasound RADIATION DOSAGE (If Supplied By Facility): CTDIvol = ( 12.53 ) mGy, DLP = ( 862.68 ) mGycm TECHNIQUE: Transaxial images were obtained from the dome of the diaphragm to the symphysis pubis with oral contrast. Oral and amp; IV Readi-CAT and amp; 100mL Isovue-300 was administered. Sagittal and coronal images were reconstructed. Individualized dose optimization techniques were used for this CT. COMPARISON: 02/18/2021 FINDINGS: The visualized lung bases are unremarkable. The visualized portions of the heart are within normal limits. There is decreased attenuation of the liver consistent with steatosis. Focal fatty sparing noted adjacent to the gallbladder. Normal gallbladder and extrahepatic biliary system. Normal spleen. Normal pancreas. Normal bilateral adrenal glands. Normal right kidney. Normal left kidney. Specifically, there is no CT evidence of a suspicious renal lesion, nearby adenopathy or infiltration of perinephric fat. Normal visualized stomach. Normal small intestine. Retained stool noted in the colon, there are a few scattered diverticula but no CT evidence of acute diverticulitis. The appendix is visualized and appears normal. Appendix best seen on coronal recon images 60 through 65. Normal abdominal aorta. Normal inferior vena cava. Normal retroperitoneum. Normal urinary bladder. Normal-appearing uterus, there are physiologic ovarian cysts. No suspicious cystic mass or free fluid in the pelvis. Normal abdominal wall. There are diffuse degenerative changes of the visualized lumbar spine. CT/Abdomen/Pelvis WITH Contrast IMPRESSION: Fatty liver, no discrete lesion No CT evidence of a suspicious renal lesion No free intraperitoneal fluid, air, or suspicious adenopathy Normal appendix visualized Normal uterus and physiologic ovarian cysts noted Electronically Signed: Dao Chand MD at 8:40 EDT , Service support ,
== END ==
PROVIDERS: PCP Family Medicine; Referring Provider Family Medicine; Visit Provider Family Medicine
DX: N28.89 Other specified disorders of kidney and ureter (principal)
CPT/HCPCS: 74177; Q9967

== ENCOUNTER → 2021-04-19 15:42 | Outpatient (CLI) | payer BC, SELFPAY ==
[2021-04-19 17:45] LABS: Absolute Lymphocyte Count 2.35 X10^3/uL (0.83-4.51); Absolute Neutrophil Count 6.6 X10^3/uL (2.0-7.7); Basophil# 0.06 X10^3/uL; Basophil% 0.6 % (0-1); Eosinophil# 0.27 X10^3/uL; Eosinophils% 2.6 % (0-5); Hemoglobin 13.6 g/dL (12.0-15.0); Lymphocyte # 2.35 X10^3/ul (0.83-4.51); Lymphocyte % 22.8 % (19-41); Mean Corp Hgb Conc 32.4 g/dL (32-36); Mean Corpuscular Hgb 29.7 pg (27.0-32.0); Mean Corpuscular Volume 91.7 fL (81-99); Mean Platelet Vol. 10.4 fl (6.2-12.0); Monocyte# 0.89 X10^3/uL; Monocyte% 8.6 % (0-10); NRBC Flagged by Analyzer 0 % (0-5); Neutrophil # 6.62 X10^3/uL (2.7-7.7); Neutrophil % 64.2 % (47-70); Platelet Count 320 K/mm3 (150-450); RBC Distribution Width CV 13.9 % (11.6-14.6); RBC Distribution Width SD 46.5 fl (35.1-43.9); Red Blood Count 4.58 M/mm3 (4.2-5.4); White Blood Count 10.3 K/mm3 (4.4-11.0)
[2021-04-19 18:12] LABS: ALB/GLOB Ratio 1.3 RATIO (0.9-2.4); AST(SGOT) 34 U/L (15-37); Alanine Aminotransfer ALT/SGPT 44 U/L (13-56); Albumin, Serum 4.5 g/dL (3.2-5.0); Alkaline Phosphatase 98 U/L (45-117); Anion Gap 7 (5-15); BUN 14 mg/dL (7-18); BUN/Creat Ratio 22.6 RATIO (10-20); Calcium,Total 9.8 mg/dL (8.5-10.1); Chloride 104 mmol/L (98-107); Cholesterol 203 mg/dL (200); Creatinine, Serum 0.62 mg/dL (0.55-1.02); EST Glomerular Filtration Rate 108 mL/min (>60); Est Glom Filt Rate - Afr Amer 131 mL/min (>60); Globulin 3.5 g/dL (2.2-4.2); Glucose 86 mg/dL (74-106); High Density Lipoprotein 47 mg/dL; Potassium 3.9 mmol/L (3.5-5.1); Sodium Level 136 mmol/L (136-145); Triglycerides 338 mg/dL; Very Low Density Lipoprotein 68 mg/dL (5-40)
[2021-04-19 18:18] LABS: Hemoglobin A1c 5.9 % (3.8-5.6)
== END ==
PROVIDERS: PCP Family Medicine; Referring Provider Family Medicine; Visit Provider Family Medicine
DX: E11.9 Type 2 diabetes mellitus without complications (principal)
CPT/HCPCS: 36415; 80053; 80061; 83036; 85025

== ENCOUNTER → 2021-05-04 14:02 | Outpatient (CLI) | payer BC, SELFPAY | PROVIDERS: PCP Family Medicine; Referring Provider Family Medicine; Visit Provider Family Medicine | DX: Z20.822 Contact with and (suspected) exposure to COVID-19 (principal) | CPT/HCPCS: 36415; 86769 ==

== ENCOUNTER → 2021-05-20 12:21 | Outpatient (CLI) | payer BC, SELFPAY ==
[2021-05-20 13:19] LABS: PTHIN 37.4 pg/mL (18.4-80.1)
[2021-05-23 16:09] LABS: Albumin 4.4 g/dL (2.9-4.4); Alpha-1-Globulins 0.2 g/dL (0.0-0.4); Alpha-2-Globulins 0.7 g/dL (0.4-1.0); Gamma Globulin 0.7 g/dL (0.4-1.8); Immunoglobulin A 124 mg/dL (87-352); Immunoglobulin G 777 mg/dL (586-1602); Immunoglobulin M 30 mg/dL (26-217); PROEL- TOTAL PROTEIN 7.1 g/dL (6.0-8.5)
== END ==
PROVIDERS: PCP Family Medicine; Visit Provider Internal Medicine Rheumatology
DX: E83.52 Hypercalcemia (principal)
CPT/HCPCS: 36415; 82330; 82784; 83970; 84165; 86334

== ENCOUNTER → 2021-06-01 11:57 | Outpatient (CLI) | payer BC, SELFPAY ==
[2021-06-01 14:08] LABS: AST(SGOT) 35 U/L (15-37); Alanine Aminotransfer ALT/SGPT 65 U/L (13-56)
== END ==
PROVIDERS: PCP Family Medicine; Referring Provider Internal Medicine Rheumatology; Visit Provider Internal Medicine Rheumatology
DX: R94.5 Abnormal results of liver function studies (principal)
CPT/HCPCS: 36415; 84450; 84460

== ENCOUNTER → 2021-06-20 13:24 | Outpatient (CLI) | payer BC, SELFPAY ==
[2021-06-20 15:28] LABS: AST(SGOT) 29 U/L (15-37); Alanine Aminotransfer ALT/SGPT 43 U/L (13-56)
== END ==
PROVIDERS: PCP Family Medicine; Referring Provider Internal Medicine Rheumatology; Visit Provider Internal Medicine Rheumatology
DX: R94.5 Abnormal results of liver function studies (principal)
CPT/HCPCS: 36415; 84450; 84460

== ENCOUNTER → 2021-09-23 08:02 | Outpatient (CLI) | payer BC, SELFPAY ==
--- NOTE | 2021-09-23 08:09 | BI_ITS ---
MAMMOGRAPHY - BILATERAL SCREENING REASON FOR EXAM: Female, 51 years old. Routine annual screening examination. PERTINENT HISTORY: Mother with breast cancer. Prior left ultrasound-guided breast biopsy. TECHNIQUE: Digital bilateral breast holger (3D mammographic acquisition) in the CC and MLO projections. 2-D mediolateral oblique (MLO) and craniocaudad (CC) views of both breasts were obtained. CAD: Full Field Digital Mammography with Computer Added Detection was performed. COMPARISON: Comparison is made with prior examination dated 07/17/2019 and 09/17/2017. FINDINGS: Breast Composition: The breasts are heterogeneously dense, which may obscure small masses. There are no dominant masses or suspicious calcifications. There is a 1.1 cm x 1.1 cm well-defined nodule in the retroareolar region of the left breast. A tissue clip marker is seen within it. This has decreased slightly in size as compared to prior study. Small bilateral benign-appearing axillary lymph nodes. No other significant abnormalities are identified. There has been no significant change since the prior study. BI/SCRN MAMM (CAD)W/HOLGER BILAT IMPRESSION: Stable bilateral screening mammogram. Yearly follow-up mammogram recommended. (A) ASSESSMENT CATEGORY: BIRADS Category 2: Benign. A letter regarding these results will be sent to the patient by the facility within 30 days. Approximately 10% of breast cancers are not detected by mammography. A normal mammogram should not delay biopsy of a clinically suspicious abnormality. [id number] Electronically Signed: Obinna Ennis MD at 9:26 EST , Service support ,
== END ==
PROVIDERS: PCP Family Medicine; Referring Provider Family Medicine; Visit Provider Family Medicine
DX: Z12.31 Encounter for screening mammogram for malignant neoplasm of breast (principal); Z80.3 Family history of malignant neoplasm of breast
CPT/HCPCS: 77063; 77067

== ENCOUNTER 2021-11-15 12:18 | Outpatient (CLI) | payer OTHER, SELFPAY ==
[2021-11-15 15:51] LABS: ALB/GLOB Ratio 1.4 RATIO (0.9-2.4); AST(SGOT) 39 U/L (15-37); Alanine Aminotransfer ALT/SGPT 56 U/L (13-56); Albumin, Serum 4.2 g/dL (3.2-5.0); Alkaline Phosphatase 97 U/L (45-117); Amylase 38 U/L (25-115); BUN 10 mg/dL (7-18); BUN/Creat Ratio 14.5 RATIO (10-20); Calcium,Total 9.9 mg/dL (8.5-10.1); Chloride 106 mmol/L (98-107); Creatinine, Serum 0.69 mg/dL (0.55-1.02); EST Glomerular Filtration Rate 95 mL/min (>60); Est Glom Filt Rate - Afr Amer 115 mL/min (>60); Glucose 103 mg/dL (74-106); Potassium 4.3 mmol/L (3.5-5.1); Protein, Total 7.2 g/dL (6.4-8.2); Sodium Level 141 mmol/L (136-145)
[2021-11-15 15:52] LABS: Anion Gap 7 (5-15)
== END 2021-11-15 23:59 | disposition home or self-care (01) ==
PROVIDERS: PCP Family Medicine; Referring Provider Registered Nurse; Visit Provider Registered Nurse
DX: R10.9 Unspecified abdominal pain (principal)
CPT/HCPCS: 36415; 80053; 82150

== ENCOUNTER 2021-11-21 08:14 | Outpatient (CLI) | payer OTHER, SELFPAY ==
--- NOTE | 2021-11-21 08:16 | US_ITS ---
STUDY: ABDOMINAL ULTRASOUND REASON FOR EXAM: Female, 51 years old. One week history of epigastric pain. IBS. TECHNIQUE: Transabdominal ultrasound was performed with real-time and static hurt scale imaging. TECHNICAL QUALITY: Adequate. COMPARISON: Comparison is made with prior examination dated 08/23/2018. FINDINGS: Liver: The liver measures 17.8 cm. There is increased echogenicity consistent with fatty infiltration. Focal fatty sparing is seen in the region of the gallbladder fossa. The bile ducts are within normal limits. There is hepatic color flow. The direction of portal flow is hepatopetal. There is no demonstrated mass lesion. Portal vein measurement: Gallbladder: Normal distended gallbladder. The gallbladder wall measures 2.4 mm. There is a negative sonographic Paredes''s sign. There is no pericholecystic fluid. There are no gallstones. Common Bile Duct (C.B.D.): The common bile duct measures 3.4 mm. Pancreas: Normal size of the head, body and tail of the pancreas. There is normal echogenicity of the pancreas. There is no demonstrated pancreatic mass or cyst. Spleen: Normal size of the spleen. The spleen measures 10.5 cm x 5.2 cm x 4.7 cm. Right Kidney: Normal size of the right kidney. The right kidney measures 11.8 cm x 5.5 cm x 4.7 cm. Normal renal cortex. The right cortex measures 1.6 cm. There is no demonstrated renal mass or cyst. There is no right hydronephrosis. Left Kidney: Normal size of the left kidney. The left kidney measures 11.8 cm x 5.5 cm x 5.1 cm. Normal renal cortex. The left cortex measures 1.4 cm. There is no demonstrated renal mass or cyst. There is no left hydronephrosis. Aorta: Unremarkable. I.V.C.: The IVC is patent. There is no ascites. US/Abdomen Complete IMPRESSION: Fatty infiltration of the liver. Electronically Signed: Obinna Ennis MD at 14:10 EST ,
== END 2021-11-21 23:59 | disposition home or self-care (01) ==
LOC: US 08:15
PROVIDERS: PCP Family Medicine; Referring Provider Registered Nurse; Visit Provider Registered Nurse
DX: K76.0 Fatty (change of) liver, not elsewhere classified (principal); R10.13 Epigastric pain
CPT/HCPCS: 76700

== ENCOUNTER 2021-12-13 09:51 | Outpatient (CLI) | payer OTHER, SELFPAY ==
--- NOTE | 2021-12-13 10:02 | NM_ITS ---
CLINICAL: 51-year-old female with reported history of abdominal pain. RADIONUCLIDE HEPATOBILIARY SCINTIGRAPHY COMPARISON: Abdominal ultrasound report 11/21/2021, [facility] hepatobiliary scintigraphy report 03/04/2010 FINDINGS: Following the intravenous administration of 4.9 mCi of 99m Tc Mebrofenin, hepatobiliary images reveal: 1. Relatively prompt and homogeneous radiopharmaceutical concentration is noted by a normal sized liver. No parenchymal defects are identified. 2. Gallbladder activity is identified at 10 minutes post radiopharmaceutical administration. 3. Small intestinal tract is observed at 30 minutes following tracer injection. 4. Washout of the radiopharmaceutical by the hepatic parenchyma appears qualitatively normal. The patient was administered a fatty meal (8 ounces Boost). The post fatty meal ingestion gallbladder ejection fraction calculated at 30 minutes following fatty meal administration was noted to be 56.0 % (normal greater than 30%). Duodenal-gastric reflux is demonstrated following the administration of the fatty meal. NM/Hepatobilliary Img w/Pharm Int IMPRESSION: 1. A gallbladder ejection fraction calculated to be greater than 30% following the administration of an ingested fatty meal makes the probability of functional hepatobiliary disease (gallbladder and/or sphincter of Oddi dyskinesia) and/or organic hepatobiliary disease (chronic acalculous cholecystitis and/or cystic duct syndrome) to be low. (Salo and Cyrus, J Nucl Med 43: 1603, 2002). 2. There is scintigraphic evidence of post fatty meal duodenal gastric reflux. Electronically Signed: Thompson Poole DO at 22:37 EST ,
== END 2021-12-13 23:59 | disposition home or self-care (01) ==
LOC: NM 09:52
PROVIDERS: PCP Family Medicine; Referring Provider Family Medicine; Visit Provider Family Medicine
DX: R10.9 Unspecified abdominal pain (principal)
CPT/HCPCS: 78227; A9537

== ENCOUNTER 2022-01-03 08:25 | Outpatient (CLI) | payer OTHER, SELFPAY ==
[2022-01-03 10:11] LABS: Absolute Lymphocyte Count 2.97 X10^3/uL (0.83-4.51); Absolute Neutrophil Count 4.7 X10^3/uL (2.0-7.7); Basophil# 0.07 X10^3/uL; Basophil% 0.8 % (0-1); Eosinophil# 0.28 X10^3/uL; Eosinophils% 3.1 % (0-5); Hematocrit 40.7 % (37-47); Hemoglobin 13.4 g/dL (12.0-15.0); Lymphocyte # 2.97 X10^3/ul (0.83-4.51); Lymphocyte % 33.3 % (19-41); Mean Corp Hgb Conc 32.9 g/dL (32-36); Mean Corpuscular Volume 91.1 fL (81-99); Mean Platelet Vol. 10.5 fl (6.2-12.0); Monocyte# 0.83 X10^3/uL; Monocyte% 9.3 % (0-10); NRBC Flagged by Analyzer 0 % (0-5); Neutrophil # 4.67 X10^3/uL (2.7-7.7); Neutrophil % 52.4 % (47-70); Platelet Count 278 K/mm3 (150-450); RBC Distribution Width CV 13.8 % (11.6-14.6); RBC Distribution Width SD 46.1 fl (35.1-43.9); Red Blood Count 4.47 M/mm3 (4.2-5.4); White Blood Count 8.9 K/mm3 (4.4-11.0)
[2022-01-03 10:30] LABS: Vitamin D,25 Hydroxy 35.4 ng/mL
[2022-01-03 10:34] LABS: Hemoglobin A1c 6.4 % (3.8-5.6)
[2022-01-03 10:48] LABS: ALB/GLOB Ratio 1.3 RATIO (0.9-2.4); AST(SGOT) 51 U/L (15-37); Alanine Aminotransfer ALT/SGPT 55 U/L (13-56); Albumin, Serum 4.2 g/dL (3.2-5.0); Alkaline Phosphatase 96 U/L (45-117); Anion Gap 7 (5-15); BUN 18 mg/dL (7-18); BUN/Creat Ratio 24.6 RATIO (10-20); Calcium,Total 9.6 mg/dL (8.5-10.1); Chloride 106 mmol/L (98-107); Cholesterol 196 mg/dL (200); Creatinine, Serum 0.73 mg/dL (0.55-1.02); EST Glomerular Filtration Rate 89 mL/min (>60); Est Glom Filt Rate - Afr Amer 108 mL/min (>60); Globulin 3.2 g/dL (2.2-4.2); Glucose 111 mg/dL (74-106); High Density Lipoprotein 51 mg/dL; Magnesium 2.2 mg/dL (1.6-2.6); Potassium 3.2 mmol/L (3.5-5.1); Protein, Total 7.4 g/dL (6.4-8.2); Sodium Level 141 mmol/L (136-145); Triglycerides 181 mg/dL; Very Low Density Lipoprotein 36 mg/dL (5-40)
[2022-01-03 10:52] LABS: Microalbumin,Random Urine 23.5 mg/L (NO RANGE EST.); Microalbumin:Creatinine Ratio 8.3 mg/g CRE (<30 mg/g CRE)
== END 2022-01-03 23:59 | disposition home or self-care (01) ==
LOC: MFPLAB 08:26
PROVIDERS: PCP Family Medicine; Referring Provider Family Medicine; Visit Provider Family Medicine
DX: E11.9 Type 2 diabetes mellitus without complications (principal); I47.9 Paroxysmal tachycardia, unspecified; E55.9 Vitamin D deficiency, unspecified
CPT/HCPCS: 36415; 80053; 80061; 82043; 82306; 82570; 83036; 83735; 85025

== ENCOUNTER 2022-01-06 16:21 | Outpatient (CLI) | payer OTHER, SELFPAY ==
[2022-01-06 18:20] LABS: T4 Free Direct 0.86 ng/dL (0.76-1.46); Thyroid Stim Hormone (TSH) 1.43 uIU/mL (0.358-3.74); Vitamin B12 334 pg/mL (211-911)
== END 2022-01-06 23:59 | disposition home or self-care (01) ==
LOC: MFPLAB 16:22
PROVIDERS: PCP Family Medicine; Referring Provider Family Medicine; Visit Provider Family Medicine
DX: R41.3 Other amnesia (principal)
CPT/HCPCS: 36415; 82607; 84439; 84443

== ENCOUNTER 2022-01-18 17:06 | Outpatient (CLI) | payer OTHER, SELFPAY ==
[2022-01-18 17:52] LABS: Hematocrit 42.4 % (37-47); Hemoglobin 13.9 g/dL (12.0-15.0); Mean Corp Hgb Conc 32.8 g/dL (32-36); Mean Corpuscular Hgb 28.8 pg (27.0-32.0); Mean Platelet Vol. 10.6 fl (6.2-12.0); Platelet Count 322 K/mm3 (150-450); RBC Distribution Width CV 13.7 % (11.6-14.6); RBC Distribution Width SD 43.9 fl (35.1-43.9); Red Blood Count 4.82 M/mm3 (4.2-5.4); White Blood Count 12.5 K/mm3 (4.4-11.0)
[2022-01-18 18:10] LABS: D-Dimer Quantitative (DVT/PE) 0.31 FEU/ug/m (0.27-0.49)
[2022-01-18 18:41] LABS: Anion Gap 8 (5-15); BUN 12 mg/dL (7-18); Calcium,Total 9.5 mg/dL (8.5-10.1); Chloride 105 mmol/L (98-107); Creatinine, Serum 0.67 mg/dL (0.55-1.02); EST Glomerular Filtration Rate 99 mL/min (>60); Est Glom Filt Rate - Afr Amer 120 mL/min (>60); Glucose 104 mg/dL (74-106); Potassium 4.2 mmol/L (3.5-5.1); Sodium Level 136 mmol/L (136-145)
== END 2022-01-18 23:59 | disposition home or self-care (01) ==
PROVIDERS: PCP Family Medicine; Referring Provider Family Medicine; Visit Provider Nurse Practitioner Family
DX: E87.6 Hypokalemia (principal); R07.9 Chest pain, unspecified
CPT/HCPCS: 36415; 80048; 85027; 85379

== ENCOUNTER → 2022-01-30 | Outpatient (CLI) | payer OTHER, SELFPAY ==
[2022-01-30 12:02] LABS: Bacteria 0 SEEN /hpf (None Seen); Mucous, Urine 0 SEEN /hpf (<or=2+); White Blood Cells 0 SEEN /hpf (0-5)
[2022-01-30 12:39] LABS: Absolute Lymphocyte Count 1.98 X10^3/uL (0.83-4.51); Absolute Neutrophil Count 5.4 X10^3/uL (2.0-7.7); Basophil# 0.05 X10^3/uL; Basophil% 0.6 % (0-1); Eosinophil# 0.28 X10^3/uL; Eosinophils% 3.3 % (0-5); Hematocrit 38.3 % (37-47); Hemoglobin 12.5 g/dL (12.0-15.0); Lymphocyte # 1.98 X10^3/ul (0.83-4.51); Lymphocyte % 23.4 % (19-41); Mean Corp Hgb Conc 32.6 g/dL (32-36); Mean Corpuscular Hgb 29.6 pg (27.0-32.0); Mean Corpuscular Volume 90.8 fL (81-99); Mean Platelet Vol. 10.3 fl (6.2-12.0); Monocyte# 0.66 X10^3/uL; Monocyte% 7.8 % (0-10); NRBC Flagged by Analyzer 0 % (0-5); Neutrophil # 5.43 X10^3/uL (2.7-7.7); Neutrophil % 64.2 % (47-70); Platelet Count 270 K/mm3 (150-450); RBC Distribution Width CV 13.9 % (11.6-14.6); RBC Distribution Width SD 45.4 fl (35.1-43.9); Red Blood Count 4.22 M/mm3 (4.2-5.4); White Blood Count 8.5 K/mm3 (4.4-11.0)
[2022-01-30 12:58] LABS: Color, Urine Red (Yellow); Glucose, Dipstick Normal (Normal); Ketone-Dipstick Negative (Negative); Leukocyte Esterase-Dipstick Negative /ul (Negative); Nitrite-Dipstick Negative (Negative); Occult Blood-Urine 250 /ul (Negative); Protein-Dipstick 30 mg/dl (Negative); Urine Bilirubin Dipstick Negative (Negative); Urine Clarity Sl. Cloudy (Clear); Urine Urobilinogen Normal (Normal)
[2022-01-30 13:04] LABS: Red Blood Cells-Urine 25-50 SEEN /hpf (0-5); Squamous Epithelial Cells - UA 0-5 SEEN /hpf (5-10)
[2022-01-30 13:08] LABS: Vitamin D,25 Hydroxy 34.7 ng/mL
[2022-01-30 13:20] LABS: ALB/GLOB Ratio 1.2 RATIO (0.9-2.4); AST(SGOT) 46 U/L (15-37); Alanine Aminotransfer ALT/SGPT 49 U/L (13-56); Alkaline Phosphatase 96 U/L (45-117); Anion Gap 9 (5-15); BUN 10 mg/dL (7-18); BUN/Creat Ratio 16.2 RATIO (10-20); CPK Total, Creatine Kinase 87 U/L (26-192); CRP < 2.90 mg/L (0.0-3.0); Calcium,Total 9.3 mg/dL (8.5-10.1); Chloride 109 mmol/L (98-107); Creatinine, Serum 0.62 mg/dL (0.55-1.02); EST Glomerular Filtration Rate 108 mL/min (>60); Est Glom Filt Rate - Afr Amer 131 mL/min (>60); Globulin 3.3 g/dL (2.2-4.2); Glucose 106 mg/dL (74-106); Potassium 3.9 mmol/L (3.5-5.1); Protein, Total 7.3 g/dL (6.4-8.2); Sodium Level 139 mmol/L (136-145)
[2022-01-30 13:36] LABS: Erythrocyte Sedimentation Rate 5 mm/hr (0-30)
[2022-02-01 19:23] LABS: Vitamin D 1,25-Dihydroxy 81.7 pg/mL (19.9-79.3)
== END | disposition home or self-care (01) ==
PROVIDERS: PCP Family Medicine; Referring Provider Internal Medicine Rheumatology; Visit Provider Internal Medicine Rheumatology
DX: M32.9 Systemic lupus erythematosus, unspecified (principal); R76.8 Other specified abnormal immunological findings in serum; E55.9 Vitamin D deficiency, unspecified; K82.8 Other specified diseases of gallbladder; K75.81 Nonalcoholic steatohepatitis (NASH); M79.7 Fibromyalgia; M50.30 Other cervical disc degeneration, unspecified cervical region; M51.36 Other intervertebral disc degeneration, lumbar region; M47.816 Spondylosis without myelopathy or radiculopathy, lumbar region; M19.041 Primary osteoarthritis, right hand; M19.042 Primary osteoarthritis, left hand; M50.20 Other cervical disc displacement, unspecified cervical region; R94.5 Abnormal results of liver function studies; Z79.2 Long term (current) use of antibiotics; Z79.899 Other long term (current) drug therapy; Z87.39 Personal history of other diseases of the musculoskeletal system and connective tissue
CPT/HCPCS: 36415; 80053; 81001; 82306; 82550; 82652; 85025; 85652; 86140; 87086; 87088

== ENCOUNTER → 2022-03-13 | Outpatient (CLI) | payer OTHER, SELFPAY ==
[2022-03-13 16:37] LABS: Mucous, Urine 0 SEEN /hpf (<or=2+); Red Blood Cells-Urine 0 SEEN /hpf (0-5); White Blood Cells 0 SEEN /hpf (0-5)
[2022-03-13 17:40] LABS: Absolute Lymphocyte Count 2.63 X10^3/uL (0.83-4.51); Absolute Neutrophil Count 5.6 X10^3/uL (2.0-7.7); Basophil# 0.08 X10^3/uL; Basophil% 0.8 % (0-1); Eosinophil# 0.27 X10^3/uL; Eosinophils% 2.8 % (0-5); Hematocrit 35.6 % (37-47); Hemoglobin 11.6 g/dL (12.0-15.0); Lymphocyte # 2.63 X10^3/ul (0.83-4.51); Lymphocyte % 27.3 % (19-41); Mean Corp Hgb Conc 32.6 g/dL (32-36); Mean Corpuscular Hgb 28.2 pg (27.0-32.0); Mean Corpuscular Volume 86.6 fL (81-99); Monocyte# 0.95 X10^3/uL; Monocyte% 9.9 % (0-10); NRBC Flagged by Analyzer 0.2 % (0-5); Neutrophil % 58.3 % (47-70); Platelet Count 298 K/mm3 (150-450); RBC Distribution Width CV 13.6 % (11.6-14.6); RBC Distribution Width SD 42.4 fl (35.1-43.9); Red Blood Count 4.11 M/mm3 (4.2-5.4); White Blood Count 9.6 K/mm3 (4.4-11.0)
[2022-03-13 18:01] LABS: Color, Urine Straw (Yellow); Glucose, Dipstick Normal (Normal); Ketone-Dipstick Negative (Negative); Leukocyte Esterase-Dipstick Negative /ul (Negative); Nitrite-Dipstick Negative (Negative); Occult Blood-Urine Negative /ul (Negative); Protein-Dipstick Negative (Negative); Specific Gravity, Urine 1.005 (1.002-1.030); Urine Bilirubin Dipstick Negative (Negative); Urine Clarity Clear (Clear); Urine Urobilinogen Normal (Normal)
[2022-03-13 18:33] LABS: AST(SGOT) 53 U/L (15-37); Alanine Aminotransfer ALT/SGPT 80 U/L (13-56); Albumin, Serum 4.2 g/dL (3.2-5.0); BUN 9 mg/dL (7-18); Calcium,Total 9.5 mg/dL (8.5-10.1); Chloride 105 mmol/L (98-107); Creatinine, Serum 0.56 mg/dL (0.55-1.02); EST Glomerular Filtration Rate 121 mL/min (>60); Est Glom Filt Rate - Afr Amer 146 mL/min (>60); Glucose 92 mg/dL (74-106); Magnesium 1.9 mg/dL (1.6-2.6); Phosphorus 3.8 mg/dL (2.5-4.9); Potassium 3.6 mmol/L (3.5-5.1); Sodium Level 139 mmol/L (136-145)
[2022-03-13 18:38] LABS: Creatinine, Urine (random) < 13.00 mg/dL (NO RANGE EST.); Protein, Urine (Random) < 6.0 mg/dL (<11.9); Urine Sodium 26 mmol/L (Not Establ.)
[2022-03-13 19:08] LABS: Bacteria RARE /hpf (None Seen)
[2022-03-13 19:09] LABS: Squamous Epithelial Cells - UA 0-5 SEEN /hpf (5-10)
== END | disposition home or self-care (01) ==
PROVIDERS: PCP Family Medicine; Referring Provider Internal Medicine Rheumatology; Visit Provider Internal Medicine Rheumatology
DX: E83.52 Hypercalcemia (principal); R94.5 Abnormal results of liver function studies
CPT/HCPCS: 36415; 80069; 81001; 82570; 83735; 84156; 84300; 84450; 84460; 85025

== ENCOUNTER → 2022-03-29 | Outpatient (CLI) | payer OTHER, SELFPAY ==
[2022-03-29 16:10] LABS: AST(SGOT) 55 U/L (15-37); Alanine Aminotransfer ALT/SGPT 47 U/L (13-56)
== END | disposition home or self-care (01) ==
LOC: LAB 13:58
PROVIDERS: PCP Family Medicine; Referring Provider Internal Medicine Rheumatology; Visit Provider Internal Medicine Rheumatology
DX: R94.5 Abnormal results of liver function studies (principal)
CPT/HCPCS: 36415; 84450; 84460

== ENCOUNTER → 2022-04-18 | Outpatient (CLI) | payer OTHER, SELFPAY ==
[2022-04-18 17:58] LABS: Absolute Neutrophil Count 5.5 X10^3/uL (2.0-7.7); Basophil# 0.07 X10^3/uL; Basophil% 0.7 % (0-1); Eosinophil# 0.36 X10^3/uL; Eosinophils% 3.8 % (0-5); Hematocrit 36.6 % (37-47); Hemoglobin 11.2 g/dL (12.0-15.0); Lymphocyte % 27.5 % (19-41); Mean Corp Hgb Conc 30.6 g/dL (32-36); Mean Corpuscular Hgb 26.4 pg (27.0-32.0); Mean Corpuscular Volume 86.1 fL (81-99); Mean Platelet Vol. 10.8 fl (6.2-12.0); Monocyte# 0.85 X10^3/uL; NRBC Flagged by Analyzer 0 % (0-5); Neutrophil # 5.54 X10^3/uL (2.7-7.7); Neutrophil % 58.5 % (47-70); Platelet Count 342 K/mm3 (150-450); RBC Distribution Width CV 14.3 % (11.6-14.6); RBC Distribution Width SD 44.5 fl (35.1-43.9); Red Blood Count 4.25 M/mm3 (4.2-5.4); White Blood Count 9.5 K/mm3 (4.4-11.0)
[2022-04-18 18:14] LABS: Microalbumin,Random Urine 5.5 mg/L (NO RANGE EST.); Microalbumin:Creatinine Ratio 15.4 mg/g CRE (<30 mg/g CRE)
[2022-04-18 18:47] LABS: ALB/GLOB Ratio 1.2 RATIO (0.9-2.4); AST(SGOT) 67 U/L (15-37); Alanine Aminotransfer ALT/SGPT 61 U/L (13-56); Albumin, Serum 4.2 g/dL (3.2-5.0); Alkaline Phosphatase 101 U/L (45-117); Anion Gap 7 (5-15); BUN 12 mg/dL (7-18); BUN/Creat Ratio 19.7 RATIO (10-20); Calcium,Total 9.9 mg/dL (8.5-10.1); Chloride 104 mmol/L (98-107); Cholesterol 188 mg/dL (200); Creatinine, Serum 0.61 mg/dL (0.55-1.02); EST Glomerular Filtration Rate 110 mL/min (>60); Est Glom Filt Rate - Afr Amer 133 mL/min (>60); Globulin 3.4 g/dL (2.2-4.2); Glucose 85 mg/dL (74-106); High Density Lipoprotein 43 mg/dL; Magnesium 2.3 mg/dL (1.6-2.6); Potassium 3.7 mmol/L (3.5-5.1); Protein, Total 7.6 g/dL (6.4-8.2); Sodium Level 138 mmol/L (136-145); Triglycerides 352 mg/dL; Very Low Density Lipoprotein 70 mg/dL (5-40)
[2022-04-18 19:22] LABS: Vitamin D,25 Hydroxy 35.3 ng/mL
[2022-04-18 21:19] LABS: Hemoglobin A1c 6.4 % (3.8-5.6)
[2022-04-19 08:48] LABS: Ferritin 19 ng/mL (8-252); Iron 57 ug/dL (50-170); Iron Binding Capacity,Total 577 ug/dL (250-450); PERCENT IRON SATURATION 9.9 % (15.0-55.0); Vitamin B12 309 pg/mL (211-911)
== END | disposition home or self-care (01) ==
LOC: MFPLAB 16:53
PROVIDERS: PCP Family Medicine; Referring Provider Family Medicine; Visit Provider Family Medicine
DX: D64.9 Anemia, unspecified (principal); I47.9 Paroxysmal tachycardia, unspecified; E11.9 Type 2 diabetes mellitus without complications; E55.9 Vitamin D deficiency, unspecified
CPT/HCPCS: 36415; 80053; 80061; 82043; 82306; 82570; 82607; 82728; 83036; 83540; 83550; 83735; 85025

== ENCOUNTER → 2022-05-29 | Outpatient (CLI) | payer OTHER, SELFPAY ==
[2022-05-29 13:41] LABS: Bacteria 0 SEEN /hpf (None Seen); Mucous, Urine 0 SEEN /hpf (<or=2+)
[2022-05-29 15:14] LABS: Erythrocyte Sedimentation Rate 5 mm/hr (0-30)
[2022-05-29 15:15] LABS: Absolute Lymphocyte Count 2.84 X10^3/uL (0.83-4.51); Absolute Neutrophil Count 9.4 X10^3/uL (2.0-7.7); Basophil% 0.7 % (0-1); Color, Urine Straw (Yellow); Eosinophil# 0.23 X10^3/uL; Eosinophils% 1.7 % (0-5); Glucose, Dipstick Normal (Normal); Hematocrit 36.8 % (37-47); Hemoglobin 11.4 g/dL (12.0-15.0); Ketone-Dipstick Negative (Negative); Leukocyte Esterase-Dipstick 500 /ul (Negative); Lymphocyte # 2.84 X10^3/ul (0.83-4.51); Lymphocyte % 20.7 % (19-41); Mean Corpuscular Hgb 25.4 pg (27.0-32.0); Mean Corpuscular Volume 82.1 fL (81-99); Mean Platelet Vol. 10.6 fl (6.2-12.0); Monocyte# 0.95 X10^3/uL; Monocyte% 6.9 % (0-10); NRBC Flagged by Analyzer 0 % (0-5); Neutrophil # 9.44 X10^3/uL (2.7-7.7); Neutrophil % 69.1 % (47-70); Nitrite-Dipstick Negative (Negative); Occult Blood-Urine 50 /ul (Negative); Platelet Count 360 K/mm3 (150-450); Protein-Dipstick 30 mg/dl (Negative); RBC Distribution Width CV 15.1 % (11.6-14.6); RBC Distribution Width SD 45.6 fl (35.1-43.9); Red Blood Count 4.48 M/mm3 (4.2-5.4); Urine Bilirubin Dipstick Negative (Negative); Urine Clarity Cloudy (Clear); Urine Urobilinogen Normal (Normal); White Blood Count 13.7 K/mm3 (4.4-11.0)
[2022-05-29 15:25] LABS: White Blood Cells 10-25 SEEN /hpf (0-5)
[2022-05-29 15:26] LABS: Red Blood Cells-Urine 0-5 SEEN /hpf (0-5); Squamous Epithelial Cells - UA 10-25 SEEN /hpf (5-10)
[2022-05-29 15:49] LABS: ALB/GLOB Ratio 1.2 RATIO (0.9-2.4); AST(SGOT) 45 U/L (15-37); Alanine Aminotransfer ALT/SGPT 77 U/L (13-56); Albumin, Serum 4.1 g/dL (3.2-5.0); Alkaline Phosphatase 101 U/L (45-117); Anion Gap 8 (5-15); BUN 14 mg/dL (7-18); BUN/Creat Ratio 24.3 RATIO (10-20); CPK Total, Creatine Kinase 57 U/L (26-192); CRP < 2.90 mg/L (0.0-3.0); Calcium,Total 9.4 mg/dL (8.5-10.1); Chloride 105 mmol/L (98-107); Creatinine, Serum 0.58 mg/dL (0.55-1.02); EST Glomerular Filtration Rate 117 mL/min (>60); Est Glom Filt Rate - Afr Amer 142 mL/min (>60); Globulin 3.5 g/dL (2.2-4.2); Glucose 88 mg/dL (74-106); Potassium 3.8 mmol/L (3.5-5.1); Protein, Total 7.6 g/dL (6.4-8.2); Sodium Level 139 mmol/L (136-145)
[2022-05-31 13:13] LABS: Complement C3 157 mg/dL (82-167)
== END | disposition home or self-care (01) ==
LOC: MFPLAB 13:36
PROVIDERS: PCP Family Medicine; Visit Provider Internal Medicine Rheumatology
DX: M32.9 Systemic lupus erythematosus, unspecified (principal); D64.9 Anemia, unspecified; R76.8 Other specified abnormal immunological findings in serum; K76.0 Fatty (change of) liver, not elsewhere classified; K82.8 Other specified diseases of gallbladder; K31.84 Gastroparesis; E55.9 Vitamin D deficiency, unspecified; M79.7 Fibromyalgia; M50.30 Other cervical disc degeneration, unspecified cervical region; M50.20 Other cervical disc displacement, unspecified cervical region; M51.36 Other intervertebral disc degeneration, lumbar region; M19.041 Primary osteoarthritis, right hand; M19.042 Primary osteoarthritis, left hand; Z79.2 Long term (current) use of antibiotics; Z92.89 Personal history of other medical treatment
CPT/HCPCS: 36415; 80053; 81001; 82550; 85025; 85652; 86140; 86160; 87086; 87088

== ENCOUNTER → 2022-06-01 | Outpatient (CLI) | payer OTHER, SELFPAY ==
[2022-06-01 17:42] LABS: Bacteria 0 SEEN /hpf (None Seen); Mucous, Urine 0 SEEN /hpf (<or=2+); Red Blood Cells-Urine 0 SEEN /hpf (0-5)
[2022-06-01 22:17] LABS: Color, Urine Straw (Yellow); Glucose, Dipstick Normal (Normal); Ketone-Dipstick Negative (Negative); Leukocyte Esterase-Dipstick Negative /ul (Negative); Nitrite-Dipstick Negative (Negative); Occult Blood-Urine Negative /ul (Negative); Protein-Dipstick Negative (Negative); Urine Bilirubin Dipstick Negative (Negative); Urine Clarity Clear (Clear); Urine Urobilinogen Normal (Normal)
[2022-06-01 22:29] LABS: Squamous Epithelial Cells - UA 0-5 SEEN /hpf (5-10); White Blood Cells 0-5 SEEN /hpf (0-5)
== END | disposition home or self-care (01) ==
PROVIDERS: PCP Family Medicine; Visit Provider Nurse Practitioner Family
DX: R39.15 Urgency of urination (principal)
CPT/HCPCS: 81001; 87086; 87088

== ENCOUNTER → 2022-06-20 | Outpatient (CLI) | payer OTHER, SELFPAY ==
[2022-06-20 15:06] LABS: AST(SGOT) 35 U/L (15-37); Alanine Aminotransfer ALT/SGPT 57 U/L (13-56)
== END | disposition home or self-care (01) ==
LOC: LAB 14:06
PROVIDERS: PCP Family Medicine; Referring Provider Internal Medicine Rheumatology; Visit Provider Internal Medicine Rheumatology
DX: R94.5 Abnormal results of liver function studies (principal)
CPT/HCPCS: 36415; 84450; 84460

== ENCOUNTER → 2022-07-18 | Outpatient (CLI) | payer OTHER, SELFPAY ==
[2022-07-18 18:05] LABS: Absolute Lymphocyte Count 2.29 X10^3/uL (0.83-4.51); Absolute Neutrophil Count 7.9 X10^3/uL (2.0-7.7); Basophil# 0.07 X10^3/uL; Basophil% 0.6 % (0-1); Eosinophil# 0.22 X10^3/uL; Eosinophils% 1.9 % (0-5); Hematocrit 36.2 % (37-47); Hemoglobin 10.8 g/dL (12.0-15.0); Lymphocyte # 2.29 X10^3/ul (0.83-4.51); Lymphocyte % 20.1 % (19-41); Mean Corp Hgb Conc 29.8 g/dL (32-36); Mean Corpuscular Hgb 24.3 pg (27.0-32.0); Mean Corpuscular Volume 81.5 fL (81-99); Mean Platelet Vol. 10.4 fl (6.2-12.0); Monocyte# 0.82 X10^3/uL; Monocyte% 7.2 % (0-10); NRBC Flagged by Analyzer 0 % (0-5); Neutrophil # 7.91 X10^3/uL (2.7-7.7); Neutrophil % 69.6 % (47-70); Platelet Count 300 K/mm3 (150-450); RBC Distribution Width CV 17.6 % (11.6-14.6); RBC Distribution Width SD 51.3 fl (35.1-43.9); Red Blood Count 4.44 M/mm3 (4.2-5.4); White Blood Count 11.4 K/mm3 (4.4-11.0)
[2022-07-18 18:25] LABS: Vitamin B12 252 pg/mL (211-911); Vitamin D,25 Hydroxy 29.2 ng/mL
[2022-07-18 18:28] LABS: Hemoglobin A1c 6.7 % (3.8-5.6)
[2022-07-18 19:04] LABS: ALB/GLOB Ratio 1.2 RATIO (0.9-2.4); AST(SGOT) 26 U/L (15-37); Alanine Aminotransfer ALT/SGPT 48 U/L (13-56); Alkaline Phosphatase 93 U/L (45-117); Anion Gap 8 (5-15); BUN 12 mg/dL (7-18); BUN/Creat Ratio 18.9 RATIO (10-20); Calcium,Total 9.3 mg/dL (8.5-10.1); Chloride 106 mmol/L (98-107); Cholesterol 197 mg/dL (200); Creatinine, Serum 0.64 mg/dL (0.55-1.02); EST Glomerular Filtration Rate 105 mL/min (>60); Est Glom Filt Rate - Afr Amer 127 mL/min (>60); Ferritin 10 ng/mL (8-252); Globulin 3.4 g/dL (2.2-4.2); Glucose 143 mg/dL (74-106); High Density Lipoprotein 47 mg/dL; Iron 31 ug/dL (50-170); Iron Binding Capacity,Total 554 ug/dL (250-450); Magnesium 2.1 mg/dL (1.6-2.6); Potassium 3.7 mmol/L (3.5-5.1); Protein, Total 7.4 g/dL (6.4-8.2); Sodium Level 138 mmol/L (136-145); Triglycerides 466 mg/dL
== END | disposition home or self-care (01) ==
LOC: MFPLAB 16:05
PROVIDERS: PCP Family Medicine; Referring Provider Family Medicine; Visit Provider Family Medicine
DX: E11.69 Type 2 diabetes mellitus with other specified complication (principal); I47.9 Paroxysmal tachycardia, unspecified; E55.9 Vitamin D deficiency, unspecified; D64.9 Anemia, unspecified
CPT/HCPCS: 36415; 80053; 80061; 82306; 82607; 82728; 82746; 83036; 83540; 83550; 83735; 85025

== ENCOUNTER → 2022-08-02 | Outpatient (CLI) | payer OTHER, SELFPAY ==
[2022-08-02 10:56] LABS: Bacteria 0 SEEN /hpf (None Seen); Red Blood Cells-Urine 0 SEEN /hpf (0-5); White Blood Cells 0 SEEN /hpf (0-5)
[2022-08-02 11:30] LABS: Absolute Lymphocyte Count 2.19 X10^3/uL (0.83-4.51); Absolute Neutrophil Count 6.8 X10^3/uL (2.0-7.7); Basophil# 0.06 X10^3/uL; Basophil% 0.6 % (0-1); Eosinophil# 0.23 X10^3/uL; Eosinophils% 2.3 % (0-5); Hematocrit 38.1 % (37-47); Hemoglobin 11.2 g/dL (12.0-15.0); Lymphocyte # 2.19 X10^3/ul (0.83-4.51); Lymphocyte % 21.6 % (19-41); Mean Corp Hgb Conc 29.4 g/dL (32-36); Mean Corpuscular Hgb 23.8 pg (27.0-32.0); Mean Corpuscular Volume 81.1 fL (81-99); Mean Platelet Vol. 10.3 fl (6.2-12.0); Monocyte# 0.72 X10^3/uL; Monocyte% 7.1 % (0-10); NRBC Flagged by Analyzer 0 % (0-5); Neutrophil # 6.81 X10^3/uL (2.7-7.7); Neutrophil % 67.3 % (47-70); Platelet Count 338 K/mm3 (150-450); RBC Distribution Width SD 51.6 fl (35.1-43.9); White Blood Count 10.1 K/mm3 (4.4-11.0)
[2022-08-02 11:31] LABS: Color, Urine Yellow (Yellow); Glucose, Dipstick Normal (Normal); Ketone-Dipstick 5 mg/dl (Negative); Leukocyte Esterase-Dipstick Negative /ul (Negative); Nitrite-Dipstick Negative (Negative); Occult Blood-Urine Negative /ul (Negative); Protein-Dipstick 15 mg/dl (Negative); Specific Gravity, Urine 1.025 (1.002-1.030); Urine Bilirubin Dipstick Negative (Negative); Urine Clarity Sl. Cloudy (Clear); Urine Urobilinogen Normal (Normal)
[2022-08-02 11:37] LABS: Mucous, Urine 1+ /hpf (<or=2+); Squamous Epithelial Cells - UA 0-5 SEEN /hpf (5-10)
[2022-08-02 12:00] LABS: Erythrocyte Sedimentation Rate 5 mm/hr (0-30)
[2022-08-02 12:02] LABS: ALB/GLOB Ratio 1.2 RATIO (0.9-2.4); AST(SGOT) 21 U/L (15-37); Alanine Aminotransfer ALT/SGPT 47 U/L (13-56); Alkaline Phosphatase 103 U/L (45-117); Anion Gap 5 (5-15); BUN 12 mg/dL (7-18); BUN/Creat Ratio 19.6 RATIO (10-20); CPK Total, Creatine Kinase 57 U/L (26-192); CRP < 2.90 mg/L (0.0-3.0); Calcium,Total 9.7 mg/dL (8.5-10.1); Chloride 107 mmol/L (98-107); Creatinine, Serum 0.61 mg/dL (0.55-1.02); EST Glomerular Filtration Rate 109 mL/min (>60); Est Glom Filt Rate - Afr Amer 132 mL/min (>60); Globulin 3.3 g/dL (2.2-4.2); Glucose 152 mg/dL (74-106); Potassium 4.2 mmol/L (3.5-5.1); Protein, Total 7.3 g/dL (6.4-8.2); Sodium Level 139 mmol/L (136-145)
[2022-08-03 17:13] LABS: Complement C3 167 mg/dL (82-167)
== END | disposition home or self-care (01) ==
PROVIDERS: PCP Family Medicine; Visit Provider Internal Medicine Rheumatology
DX: M32.9 Systemic lupus erythematosus, unspecified (principal); D64.9 Anemia, unspecified; R76.8 Other specified abnormal immunological findings in serum; K82.8 Other specified diseases of gallbladder; K31.84 Gastroparesis; E55.9 Vitamin D deficiency, unspecified; K75.81 Nonalcoholic steatohepatitis (NASH); M79.7 Fibromyalgia; M50.30 Other cervical disc degeneration, unspecified cervical region; M50.20 Other cervical disc displacement, unspecified cervical region; M51.36 Other intervertebral disc degeneration, lumbar region; M19.041 Primary osteoarthritis, right hand; M19.042 Primary osteoarthritis, left hand; M47.816 Spondylosis without myelopathy or radiculopathy, lumbar region; Z79.52 Long term (current) use of systemic steroids; Z79.2 Long term (current) use of antibiotics; Z92.89 Personal history of other medical treatment
CPT/HCPCS: 80053; 81001; 82550; 85025; 85652; 86140; 86160; 87086; 87088

== ENCOUNTER → 2022-10-05 | Outpatient (CLI) | payer OTHER, SELFPAY ==
[2022-10-05 17:49] LABS: Absolute Neutrophil Count 4.8 X10^3/uL (2.0-7.7); Basophil# 0.07 X10^3/uL; Basophil% 0.8 % (0-1); Eosinophil# 0.31 X10^3/uL; Eosinophils% 3.5 % (0-5); Hematocrit 39.4 % (37-47); Hemoglobin 11.9 g/dL (12.0-15.0); Lymphocyte % 31.6 % (19-41); Mean Corp Hgb Conc 30.2 g/dL (32-36); Mean Corpuscular Hgb 25.5 pg (27.0-32.0); Mean Corpuscular Volume 84.4 fL (81-99); Mean Platelet Vol. 10.8 fl (6.2-12.0); NRBC Flagged by Analyzer 0 % (0-5); Neutrophil # 4.84 X10^3/uL (2.7-7.7); Neutrophil % 54.6 % (47-70); Platelet Count 377 K/mm3 (150-450); RBC Distribution Width CV 17.7 % (11.6-14.6); RBC Distribution Width SD 54.2 fl (35.1-43.9); Red Blood Count 4.67 M/mm3 (4.2-5.4); White Blood Count 8.9 K/mm3 (4.4-11.0)
[2022-10-05 18:40] LABS: Albumin, Serum 4.3 g/dL (3.2-5.0); BUN 10 mg/dL (7-18); BUN/Creat Ratio 19.1 RATIO (10-20); Calcium,Total 9.2 mg/dL (8.5-10.1); Chloride 105 mmol/L (98-107); Creatinine, Serum 0.52 mg/dL (0.55-1.02); EST Glomerular Filtration Rate 130 mL/min (>60); Est Glom Filt Rate - Afr Amer 158 mL/min (>60); Glucose 98 mg/dL (74-106); Phosphorus 4.1 mg/dL (2.5-4.9); Potassium 3.9 mmol/L (3.5-5.1); Sodium Level 140 mmol/L (136-145)
[2022-10-05 19:30] LABS: Color, Urine Yellow (Yellow); Glucose, Dipstick Normal (Normal); Ketone-Dipstick Negative (Negative); Leukocyte Esterase-Dipstick Negative /ul (Negative); Nitrite-Dipstick Negative (Negative); Occult Blood-Urine Negative /ul (Negative); Protein-Dipstick Negative (Negative); Specific Gravity, Urine 1.025 (1.002-1.030); Urine Bilirubin Dipstick Negative (Negative); Urine Clarity Clear (Clear); Urine Urobilinogen Normal (Normal)
[2022-10-05 20:17] LABS: Protein, Urine (Random) 10.2 mg/dL (<11.9); Protein:Creat Ratio 70 mg/g CRE (0-200); Urine Sodium 91 mmol/L (Not Establ.)
[2022-10-05 21:03] LABS: Bacteria 0 SEEN /hpf (None Seen); Red Blood Cells-Urine 0 SEEN /hpf (0-5)
[2022-10-05 21:04] LABS: Calcium Oxalate Crystals Ur 1+ /hpf (<or=2+); Mucous, Urine 4+ /hpf (<or=2+); Squamous Epithelial Cells - UA 0-5 SEEN /hpf (5-10); White Blood Cells 0-5 SEEN /hpf (0-5)
== END | disposition home or self-care (01) ==
LOC: MFPLAB 16:22
PROVIDERS: PCP Family Medicine; Visit Provider Internal Medicine
DX: Z87.448 Personal history of other diseases of urinary system (principal)
CPT/HCPCS: 36415; 80069; 81001; 82570; 83735; 84156; 84300; 85025

== ENCOUNTER → 2022-11-10 | Outpatient (CLI) | payer OTHER, SELFPAY ==
[2022-11-10 11:16] LABS: Bacteria 0 SEEN /hpf (None Seen); Mucous, Urine 0 SEEN /hpf (<or=2+); Red Blood Cells-Urine 0 SEEN /hpf (0-5); Squamous Epithelial Cells - UA 0 SEEN /hpf (5-10); White Blood Cells 0 SEEN /hpf (0-5)
[2022-11-10 15:11] LABS: Color, Urine Yellow (Yellow); Glucose, Dipstick Normal (Normal); Ketone-Dipstick Negative (Negative); Leukocyte Esterase-Dipstick Negative /ul (Negative); Nitrite-Dipstick Negative (Negative); Occult Blood-Urine Negative /ul (Negative); Protein-Dipstick Negative (Negative); Specific Gravity, Urine 1.005 (1.002-1.030); Urine Bilirubin Dipstick Negative (Negative); Urine Clarity Clear (Clear); Urine Urobilinogen Normal (Normal)
[2022-11-10 15:47] LABS: Erythrocyte Sedimentation Rate 2 mm/hr (0-30)
[2022-11-10 15:49] LABS: Absolute Lymphocyte Count 2.39 X10^3/uL (0.83-4.51); Absolute Neutrophil Count 6.8 X10^3/uL (2.0-7.7); Basophil# 0.09 X10^3/uL; Basophil% 0.9 % (0-1); Eosinophils% 1.9 % (0-5); Hematocrit 41.5 % (37-47); Hemoglobin 13.1 g/dL (12.0-15.0); Lymphocyte # 2.39 X10^3/ul (0.83-4.51); Lymphocyte % 23.2 % (19-41); Mean Corp Hgb Conc 31.6 g/dL (32-36); Mean Corpuscular Hgb 27.6 pg (27.0-32.0); Mean Corpuscular Volume 87.4 fL (81-99); Mean Platelet Vol. 10.7 fl (6.2-12.0); Monocyte# 0.76 X10^3/uL; Monocyte% 7.4 % (0-10); NRBC Flagged by Analyzer 0 % (0-5); Neutrophil # 6.79 X10^3/uL (2.7-7.7); Neutrophil % 66.1 % (47-70); Platelet Count 351 K/mm3 (150-450); RBC Distribution Width CV 18.1 % (11.6-14.6); RBC Distribution Width SD 57.5 fl (35.1-43.9); Red Blood Count 4.75 M/mm3 (4.2-5.4); White Blood Count 10.3 K/mm3 (4.4-11.0)
[2022-11-10 15:53] LABS: ALB/GLOB Ratio 1.4 RATIO (0.9-2.4); AST(SGOT) 56 U/L (15-37); Alanine Aminotransfer ALT/SGPT 59 U/L (13-56); Albumin, Serum 4.4 g/dL (3.2-5.0); Alkaline Phosphatase 104 U/L (45-117); Anion Gap 8 (5-15); BUN 11 mg/dL (7-18); BUN/Creat Ratio 16.7 RATIO (10-20); CPK Total, Creatine Kinase 54 U/L (26-192); CRP < 2.90 mg/L (0.0-3.0); Calcium,Total 9.7 mg/dL (8.5-10.1); Chloride 105 mmol/L (98-107); Creatinine, Serum 0.66 mg/dL (0.55-1.02); EST Glomerular Filtration Rate 100 mL/min (>60); Est Glom Filt Rate - Afr Amer 122 mL/min (>60); Globulin 3.2 g/dL (2.2-4.2); Glucose 114 mg/dL (74-106); Protein, Total 7.6 g/dL (6.4-8.2); Sodium Level 140 mmol/L (136-145)
[2022-11-13 19:45] LABS: Complement C3 166 mg/dL (82-167)
== END | disposition home or self-care (01) ==
LOC: MTLAB 11:11
PROVIDERS: PCP Family Medicine; Referring Provider Internal Medicine Rheumatology; Visit Provider Internal Medicine Rheumatology
DX: M32.9 Systemic lupus erythematosus, unspecified (principal); M25.50 Pain in unspecified joint; D72.829 Elevated white blood cell count, unspecified; R76.8 Other specified abnormal immunological findings in serum; K31.84 Gastroparesis; R73.9 Hyperglycemia, unspecified; R82.2 Biliuria; E87.6 Hypokalemia; M79.7 Fibromyalgia; Z79.1 Long term (current) use of non-steroidal anti-inflammatories (NSAID); Z79.631 Long term (current) use of antimetabolite agent; Z92.89 Personal history of other medical treatment
CPT/HCPCS: 80053; 81001; 82550; 85025; 85652; 86140; 86160; 87086; 87088

== ENCOUNTER → 2022-11-15 | Outpatient (CLI) | payer OTHER, SELFPAY ==
[2022-11-15 17:55] LABS: Absolute Lymphocyte Count 2.58 X10^3/uL (0.83-4.51); Absolute Neutrophil Count 6.2 X10^3/uL (2.0-7.7); Eosinophil# 0.23 X10^3/uL; Eosinophils% 2.3 % (0-5); Hemoglobin 12.9 g/dL (12.0-15.0); Lymphocyte # 2.58 X10^3/ul (0.83-4.51); Lymphocyte % 26.3 % (19-41); Mean Corp Hgb Conc 31.5 g/dL (32-36); Mean Corpuscular Hgb 27.3 pg (27.0-32.0); Mean Corpuscular Volume 86.7 fL (81-99); Mean Platelet Vol. 11.1 fl (6.2-12.0); Monocyte# 0.68 X10^3/uL; Monocyte% 6.9 % (0-10); NRBC Flagged by Analyzer 0 % (0-5); Neutrophil # 6.15 X10^3/uL (2.7-7.7); Neutrophil % 62.9 % (47-70); Platelet Count 372 K/mm3 (150-450); RBC Distribution Width CV 17.4 % (11.6-14.6); RBC Distribution Width SD 55.6 fl (35.1-43.9); Red Blood Count 4.73 M/mm3 (4.2-5.4); White Blood Count 9.8 K/mm3 (4.4-11.0)
[2022-11-15 18:15] LABS: Vitamin D,25 Hydroxy 40.4 ng/mL
[2022-11-15 18:26] LABS: Hemoglobin A1c 6.7 % (3.8-5.6)
[2022-11-15 18:29] LABS: ALB/GLOB Ratio 1.2 RATIO (0.9-2.4); AST(SGOT) 45 U/L (15-37); Alanine Aminotransfer ALT/SGPT 57 U/L (13-56); Alkaline Phosphatase 110 U/L (45-117); Anion Gap 8 (5-15); BUN 12 mg/dL (7-18); Calcium,Total 9.5 mg/dL (8.5-10.1); Chloride 104 mmol/L (98-107); Cholesterol 191 mg/dL (200); Creatinine, Serum 0.67 mg/dL (0.55-1.02); EST Glomerular Filtration Rate 99 mL/min (>60); Est Glom Filt Rate - Afr Amer 119 mL/min (>60); Ferritin 21 ng/mL (8-252); Globulin 3.2 g/dL (2.2-4.2); Glucose 155 mg/dL (74-106); High Density Lipoprotein 40 mg/dL; Iron 199 ug/dL (50-170); Iron Binding Capacity,Total 467 ug/dL (250-450); Magnesium 1.9 mg/dL (1.6-2.6); Potassium 3.7 mmol/L (3.5-5.1); Protein, Total 7.2 g/dL (6.4-8.2); Sodium Level 139 mmol/L (136-145); Triglycerides 441 mg/dL
[2022-11-15 18:35] LABS: Microalbumin:Creatinine Ratio 8.2 mg/g CRE (<30 mg/g CRE)
== END | disposition home or self-care (01) ==
LOC: MFPLAB 15:27
PROVIDERS: PCP Family Medicine; Visit Provider Family Medicine
DX: E11.69 Type 2 diabetes mellitus with other specified complication (principal); I47.9 Paroxysmal tachycardia, unspecified; E61.1 Iron deficiency; E55.9 Vitamin D deficiency, unspecified
CPT/HCPCS: 36415; 80053; 80061; 82043; 82306; 82570; 82728; 83036; 83540; 83550; 83735; 85025

== ENCOUNTER 2023-02-08 13:25 | Outpatient (RCR) | payer OTHER, SELFPAY ==
[2023-02-08 13:36] LABS: Bacteria 0 SEEN /hpf (None Seen); Mucous, Urine 0 SEEN /hpf (<or=2+); Red Blood Cells-Urine 0 SEEN /hpf (0-5); Squamous Epithelial Cells - UA 0 SEEN /hpf (5-10); White Blood Cells 0 SEEN /hpf (0-5)
[2023-02-08 15:22] LABS: Color, Urine Yellow (Yellow); Glucose, Dipstick Normal (Normal); Ketone-Dipstick 5 mg/dl (Negative); Leukocyte Esterase-Dipstick Negative /ul (Negative); Nitrite-Dipstick Negative (Negative); Occult Blood-Urine Negative /ul (Negative); Protein-Dipstick Negative (Negative); Urine Bilirubin Dipstick Negative (Negative); Urine Clarity Clear (Clear); Urine Urobilinogen Normal (Normal)
[2023-02-08 15:36] LABS: Erythrocyte Sedimentation Rate 6 mm/hr (0-30)
[2023-02-08 15:38] LABS: Absolute Lymphocyte Count 2.85 X10^3/uL (0.83-4.51); Absolute Neutrophil Count 7.8 X10^3/uL (2.0-7.7); Basophil# 0.09 X10^3/uL; Basophil% 0.7 % (0-1); Eosinophils% 2.5 % (0-5); Hematocrit 39.6 % (37-47); Hemoglobin 12.5 g/dL (12.0-15.0); Lymphocyte # 2.85 X10^3/ul (0.83-4.51); Lymphocyte % 23.4 % (19-41); Mean Corp Hgb Conc 31.6 g/dL (32-36); Mean Corpuscular Hgb 27.4 pg (27.0-32.0); Mean Corpuscular Volume 86.8 fL (81-99); Monocyte# 1.03 X10^3/uL; Monocyte% 8.4 % (0-10); NRBC Flagged by Analyzer 0.2 % (0-5); Neutrophil # 7.79 X10^3/uL (2.7-7.7); Neutrophil % 63.9 % (47-70); Platelet Count 266 K/mm3 (150-450); RBC Distribution Width CV 13.9 % (11.6-14.6); RBC Distribution Width SD 43.4 fl (35.1-43.9); Red Blood Count 4.56 M/mm3 (4.2-5.4); White Blood Count 12.2 K/mm3 (4.4-11.0)
[2023-02-08 16:05] LABS: ALB/GLOB Ratio 1.2 RATIO (0.9-2.4); AST(SGOT) 29 U/L (15-37); Alanine Aminotransfer ALT/SGPT 45 U/L (13-56); Alkaline Phosphatase 105 U/L (45-117); Anion Gap 9 (5-15); BUN 10 mg/dL (7-18); BUN/Creat Ratio 16.5 RATIO (10-20); CPK Total, Creatine Kinase 57 U/L (26-192); CRP < 2.90 mg/L (0.0-3.0); Calcium,Total 9.7 mg/dL (8.5-10.1); Chloride 106 mmol/L (98-107); EST Glomerular Filtration Rate 110 mL/min (>60); Est Glom Filt Rate - Afr Amer 134 mL/min (>60); Globulin 3.3 g/dL (2.2-4.2); Glucose 88 mg/dL (74-106); Protein, Total 7.3 g/dL (6.4-8.2); Sodium Level 139 mmol/L (136-145)
[2023-02-10 04:07] LABS: Complement C3 147 mg/dL (82-167)
== END 2023-02-08 14:25 | disposition home or self-care (01) ==
LOC: MTLAB 13:25
PROVIDERS: PCP Family Medicine; Referring Provider Internal Medicine Rheumatology; Visit Provider Internal Medicine Rheumatology
DX: M32.9 Systemic lupus erythematosus, unspecified (principal); R76.8 Other specified abnormal immunological findings in serum; Z87.39 Personal history of other diseases of the musculoskeletal system and connective tissue; Z92.89 Personal history of other medical treatment; R79.89 Other specified abnormal findings of blood chemistry; Z79.2 Long term (current) use of antibiotics; K76.0 Fatty (change of) liver, not elsewhere classified; K75.81 Nonalcoholic steatohepatitis (NASH); E55.9 Vitamin D deficiency, unspecified; M79.7 Fibromyalgia; M50.30 Other cervical disc degeneration, unspecified cervical region; M50.20 Other cervical disc displacement, unspecified cervical region; M51.36 Other intervertebral disc degeneration, lumbar region; M19.041 Primary osteoarthritis, right hand; M19.042 Primary osteoarthritis, left hand; M47.816 Spondylosis without myelopathy or radiculopathy, lumbar region
CPT/HCPCS: 36415; 80053; 81001; 82550; 85025; 85652; 86140; 86160

== ENCOUNTER → 2023-02-15 | Outpatient (CLI) | payer OTHER, SELFPAY ==
--- NOTE | 2023-02-15 15:07 | BI_ITS ---
MAMMOGRAPHY - BILATERAL SCREENING REASON FOR EXAM: Female, 52 years old. Routine annual screening examination. PERTINENT HISTORY: Mother with breast cancer. History of prior left ultrasound-guided breast biopsy. TECHNIQUE: Digital bilateral breast holger (3D mammographic acquisition) in the CC and MLO projections. 2-D mediolateral oblique (MLO) and craniocaudad (CC) views of both breasts were obtained. CAD: Full Field Digital Mammography with Computer Added Detection was performed. COMPARISON: Comparison is made with prior study dated September 23, 2021 and July 17, 2019. FINDINGS: Breast Composition: The breasts are heterogeneously dense, which may obscure small masses. There are no dominant masses or suspicious calcifications. Stable 1.1 cm x 1.1 cm well-defined nodule in the retroareolar region of the left breast. Once again, a tissue clip marker is seen within it. Stable small benign-appearing bilateral axillary lymph nodes. No other significant abnormalities are identified. There has been no significant change since the prior study. BI/SCRN MAMM (CAD)W/HOLGER BILAT IMPRESSION: Stable bilateral screening mammogram. Yearly follow-up mammogram recommended. (A) ASSESSMENT CATEGORY: BIRADS Category 2: Benign. A letter regarding these results will be sent to the patient by the facility within 30 days. Approximately 10% of breast cancers are not detected by mammography. A normal mammogram should not delay biopsy of a clinically suspicious abnormality. [id number] Electronically Signed: Obinna Ennis MD at 8:42 EDT ,
== END | disposition home or self-care (01) ==
LOC: OPBI 15:06
PROVIDERS: PCP Family Medicine; Referring Provider Nurse Practitioner Family; Visit Provider Nurse Practitioner Family
DX: Z12.31 Encounter for screening mammogram for malignant neoplasm of breast (principal); Z80.3 Family history of malignant neoplasm of breast
CPT/HCPCS: 77063; 77067

== ENCOUNTER → 2023-04-13 | Outpatient (CLI) | payer OTHER, SELFPAY ==
[2023-04-13 09:48] LABS: Red Blood Cells-Urine 0 SEEN /hpf (0-5)
[2023-04-13 10:27] LABS: Color, Urine Yellow (Yellow); Glucose, Dipstick Normal (Normal); Ketone-Dipstick 5 mg/dl (Negative); Leukocyte Esterase-Dipstick 25 /ul (Negative); Nitrite-Dipstick Negative (Negative); Occult Blood-Urine Negative /ul (Negative); Protein-Dipstick 30 mg/dl (Negative); Specific Gravity, Urine 1.025 (1.002-1.030); Urine Bilirubin Dipstick 1 mg/dL (Negative); Urine Clarity Sl. Cloudy (Clear); Urine Urobilinogen 1 mg/dl (Normal)
[2023-04-13 10:29] LABS: Absolute Lymphocyte Count 2.05 X10^3/uL (0.83-4.51); Absolute Neutrophil Count 6.6 X10^3/uL (2.0-7.7); Basophil# 0.11 X10^3/uL; Basophil% 1.1 % (0-1); Eosinophil# 0.27 X10^3/uL; Eosinophils% 2.8 % (0-5); Hemoglobin 12.4 g/dL (12.0-15.0); Lymphocyte # 2.05 X10^3/ul (0.83-4.51); Lymphocyte % 20.9 % (19-41); Mean Corp Hgb Conc 30.2 g/dL (32-36); Mean Corpuscular Hgb 25.9 pg (27.0-32.0); Mean Corpuscular Volume 85.6 fL (81-99); Mean Platelet Vol. 10.7 fl (6.2-12.0); Monocyte# 0.73 X10^3/uL; Monocyte% 7.4 % (0-10); NRBC Flagged by Analyzer 0 % (0-5); Neutrophil % 67.3 % (47-70); Platelet Count 276 K/mm3 (150-450); RBC Distribution Width CV 14.6 % (11.6-14.6); RBC Distribution Width SD 45.5 fl (35.1-43.9); Red Blood Count 4.79 M/mm3 (4.2-5.4); White Blood Count 9.8 K/mm3 (4.4-11.0)
[2023-04-13 10:39] LABS: Bacteria 1+ /hpf (None Seen); Calcium Oxalate Crystals Ur 1+ /hpf (<or=2+); Mucous, Urine 2+ /hpf (<or=2+); Squamous Epithelial Cells - UA 0-5 SEEN /hpf (5-10); White Blood Cells 0-5 SEEN /hpf (0-5)
[2023-04-13 10:51] LABS: Vitamin B12 307 pg/mL (211-911); Vitamin D,25 Hydroxy 73.3 ng/mL
[2023-04-13 10:53] LABS: Hemoglobin A1c 7.3 % (3.8-5.6)
[2023-04-13 11:01] LABS: Protein, Urine (Random) 24.3 mg/dL (<11.9); Protein:Creat Ratio 92 mg/g CRE (0-200); Urine Sodium 44 mmol/L (Not Establ.)
[2023-04-13 12:30] LABS: ALB/GLOB Ratio 1.1 RATIO (0.9-2.4); AST(SGOT) 36 U/L (15-37); Alanine Aminotransfer ALT/SGPT 51 U/L (13-56); Albumin, Serum 3.9 g/dL (3.2-5.0); Alkaline Phosphatase 125 U/L (45-117); Anion Gap 7 (5-15); BUN 11 mg/dL (7-18); BUN/Creat Ratio 15.6 RATIO (10-20); Calcium,Total 9.4 mg/dL (8.5-10.1); Chloride 107 mmol/L (98-107); Cholesterol 153 mg/dL (200); EST Glomerular Filtration Rate 92 mL/min (>60); Est Glom Filt Rate - Afr Amer 112 mL/min (>60); Ferritin 17 ng/mL (8-252); Folates, (Folic Acid) > 100.00 ng/mL (3.1-55.4); Globulin 3.4 g/dL (2.2-4.2); Glucose 131 mg/dL (74-106); High Density Lipoprotein 45 mg/dL; Iron 41 ug/dL (50-170); Iron Binding Capacity,Total 520 ug/dL (250-450); Magnesium 2.1 mg/dL (1.6-2.6); Phosphorus 4.2 mg/dL (2.5-4.9); Potassium 3.9 mmol/L (3.5-5.1); Protein, Total 7.3 g/dL (6.4-8.2); Sodium Level 140 mmol/L (136-145); Triglycerides 113 mg/dL; Very Low Density Lipoprotein 23 mg/dL (5-40)
[2023-04-14 05:07] LABS: Transferrin 394 mg/dL (192-364)
== END | disposition home or self-care (01) ==
LOC: LAB 09:40
PROVIDERS: PCP Family Medicine; Referring Provider Internal Medicine; Visit Provider Internal Medicine
DX: M32.14 Glomerular disease in systemic lupus erythematosus (principal); I47.9 Paroxysmal tachycardia, unspecified; E11.9 Type 2 diabetes mellitus without complications; D64.9 Anemia, unspecified; E61.1 Iron deficiency; E55.9 Vitamin D deficiency, unspecified
CPT/HCPCS: 36415; 80053; 80061; 81001; 82043; 82306; 82570; 82607; 82728; 82746; 83036; 83540; 83550; 83735; 84100; 84156; 84300; 84466; 85025; 87086; 87088

== ENCOUNTER → 2023-05-25 | Outpatient (CLI) | payer OTHER, SELFPAY ==
[2023-05-25 12:24] LABS: Bacteria 0 SEEN /hpf (None Seen); Mucous, Urine 0 SEEN /hpf (<or=2+); Red Blood Cells-Urine 0 SEEN /hpf (0-5); White Blood Cells 0 SEEN /hpf (0-5)
[2023-05-25 12:43] LABS: Erythrocyte Sedimentation Rate 2 mm/hr (0-30)
[2023-05-25 12:44] LABS: Color, Urine Yellow (Yellow); Glucose, Dipstick Normal (Normal); Ketone-Dipstick Negative (Negative); Leukocyte Esterase-Dipstick Negative /ul (Negative); Nitrite-Dipstick Negative (Negative); Occult Blood-Urine Negative /ul (Negative); Protein-Dipstick Negative (Negative); Urine Bilirubin Dipstick Negative (Negative); Urine Clarity Clear (Clear); Urine Urobilinogen Normal (Normal)
[2023-05-25 12:45] LABS: Absolute Lymphocyte Count 2.91 X10^3/uL (0.83-4.51); Absolute Neutrophil Count 10.2 X10^3/uL (2.0-7.7); Basophil# 0.09 X10^3/uL; Basophil% 0.6 % (0-1); Eosinophil# 0.29 X10^3/uL; Eosinophils% 1.9 % (0-5); Hematocrit 42.5 % (37-47); Hemoglobin 12.8 g/dL (12.0-15.0); Lymphocyte # 2.91 X10^3/ul (0.83-4.51); Lymphocyte % 19.2 % (19-41); Mean Corp Hgb Conc 30.1 g/dL (32-36); Mean Corpuscular Hgb 25.3 pg (27.0-32.0); Mean Platelet Vol. 10.3 fl (6.2-12.0); Monocyte% 9.2 % (0-10); NRBC Flagged by Analyzer 0 % (0-5); Neutrophil # 10.24 X10^3/uL (2.7-7.7); Neutrophil % 67.4 % (47-70); Platelet Count 345 K/mm3 (150-450); RBC Distribution Width CV 15.6 % (11.6-14.6); RBC Distribution Width SD 46.7 fl (35.1-43.9); Red Blood Count 5.06 M/mm3 (4.2-5.4); White Blood Count 15.2 K/mm3 (4.4-11.0)
[2023-05-25 12:56] LABS: Calcium Oxalate Crystals Ur 1+ /hpf (<or=2+); Squamous Epithelial Cells - UA 0-5 SEEN /hpf (5-10)
[2023-05-25 13:19] LABS: ALB/GLOB Ratio 1.3 RATIO (0.9-2.4); AST(SGOT) 40 U/L (15-37); Alanine Aminotransfer ALT/SGPT 76 U/L (13-56); Albumin, Serum 4.3 g/dL (3.2-5.0); Alkaline Phosphatase 124 U/L (45-117); Anion Gap 4 (5-15); BUN 15 mg/dL (7-18); BUN/Creat Ratio 22.5 RATIO (10-20); CPK Total, Creatine Kinase 38 U/L (26-192); CRP < 2.90 mg/L (0.0-3.0); Calcium,Total 10.2 mg/dL (8.5-10.1); Chloride 104 mmol/L (98-107); Creatinine, Serum 0.67 mg/dL (0.55-1.02); EST Glomerular Filtration Rate 99 mL/min (>60); Est Glom Filt Rate - Afr Amer 119 mL/min (>60); Globulin 3.4 g/dL (2.2-4.2); Glucose 107 mg/dL (74-106); Potassium 4.1 mmol/L (3.5-5.1); Protein, Total 7.7 g/dL (6.4-8.2); Sodium Level 137 mmol/L (136-145)
[2023-05-26 09:08] LABS: Complement C3 155 mg/dL (82-167)
== END | disposition home or self-care (01) ==
LOC: LAB 12:15
PROVIDERS: PCP Family Medicine; Referring Provider Internal Medicine Rheumatology; Visit Provider Internal Medicine Rheumatology
DX: M32.9 Systemic lupus erythematosus, unspecified (principal); R76.8 Other specified abnormal immunological findings in serum; Z92.89 Personal history of other medical treatment; R94.5 Abnormal results of liver function studies; Z79.2 Long term (current) use of antibiotics; Z79.52 Long term (current) use of systemic steroids; K75.81 Nonalcoholic steatohepatitis (NASH); E55.9 Vitamin D deficiency, unspecified; M79.7 Fibromyalgia; M50.30 Other cervical disc degeneration, unspecified cervical region; M50.20 Other cervical disc displacement, unspecified cervical region; M51.36 Other intervertebral disc degeneration, lumbar region; M19.041 Primary osteoarthritis, right hand; M19.042 Primary osteoarthritis, left hand; M47.816 Spondylosis without myelopathy or radiculopathy, lumbar region
CPT/HCPCS: 36415; 80053; 81001; 82550; 85025; 85652; 86140; 86160; 87086; 87088

== ENCOUNTER → 2023-05-29 | Outpatient (CLI) | payer OTHER, SELFPAY ==
[2023-05-29 12:35] LABS: Vitamin D,25 Hydroxy 51.1 ng/mL
[2023-05-31 12:09] LABS: Vitamin D 1,25-Dihydroxy 76.2 pg/mL (24.8-81.5)
== END | disposition home or self-care (01) ==
LOC: LAB 11:41
PROVIDERS: PCP Family Medicine; Referring Provider Internal Medicine Rheumatology; Visit Provider Internal Medicine Rheumatology
DX: M32.9 Systemic lupus erythematosus, unspecified (principal); K75.81 Nonalcoholic steatohepatitis (NASH); E55.9 Vitamin D deficiency, unspecified; M79.7 Fibromyalgia; M50.30 Other cervical disc degeneration, unspecified cervical region; M50.20 Other cervical disc displacement, unspecified cervical region; M51.36 Other intervertebral disc degeneration, lumbar region; M19.041 Primary osteoarthritis, right hand; M19.042 Primary osteoarthritis, left hand; M47.816 Spondylosis without myelopathy or radiculopathy, lumbar region; R76.8 Other specified abnormal immunological findings in serum; R94.5 Abnormal results of liver function studies; Z79.2 Long term (current) use of antibiotics; Z79.52 Long term (current) use of systemic steroids
CPT/HCPCS: 36415; 82306; 82652

== ENCOUNTER → 2023-06-13 | Outpatient (CLI) | payer OTHER, SELFPAY ==
[2023-06-13 15:39] LABS: PTHIN 28.5 pg/mL (18.4-80.1)
[2023-06-13 16:29] LABS: Vitamin D,25 Hydroxy 52.1 ng/mL
[2023-06-13 16:33] LABS: Anion Gap 9 (5-15); BUN 9 mg/dL (7-18); BUN/Creat Ratio 13.4 RATIO (10-20); Calcium,Total 9.5 mg/dL (8.5-10.1); Chloride 108 mmol/L (98-107); Creatinine, Serum 0.67 mg/dL (0.55-1.02); EST Glomerular Filtration Rate 97 mL/min (>60); Est Glom Filt Rate - Afr Amer 118 mL/min (>60); Glucose 134 mg/dL (74-106); Potassium 3.8 mmol/L (3.5-5.1); Sodium Level 139 mmol/L (136-145)
[2023-06-13 16:49] LABS: Ionized Calcium 5.15 mg/dL (4.36-5.20)
[2023-06-13 19:42] LABS: Ionized Calcium Order ORDER TUBE
== END | disposition home or self-care (01) ==
LOC: MFPLAB 11:41
PROVIDERS: PCP Family Medicine; Visit Provider Family Medicine
DX: E83.52 Hypercalcemia (principal)
CPT/HCPCS: 36415; 80048; 82306; 82330; 83970

== ENCOUNTER → 2023-08-17 | Outpatient (CLI) | payer OTHER, SELFPAY ==
[2023-08-17 17:52] LABS: Absolute Lymphocyte Count 3.03 X10^3/uL (0.83-4.51); Absolute Neutrophil Count 9.2 X10^3/uL (2.0-7.7); Basophil% 0.7 % (0-1); Eosinophil# 0.28 X10^3/uL; Eosinophils% 1.9 % (0-5); Hematocrit 35.6 % (37-47); Hemoglobin 10.3 g/dL (12.0-15.0); Lymphocyte # 3.03 X10^3/ul (0.83-4.51); Mean Corp Hgb Conc 28.9 g/dL (32-36); Mean Corpuscular Hgb 23.3 pg (27.0-32.0); Mean Corpuscular Volume 80.5 fL (81-99); Mean Platelet Vol. 10.4 fl (6.2-12.0); Monocyte# 1.53 X10^3/uL; Monocyte% 10.6 % (0-10); NRBC Flagged by Analyzer 0 % (0-5); Neutrophil % 63.7 % (47-70); POSITIVE DIFFERENTIAL YES; Platelet Count 278 K/mm3 (150-450); RBC Distribution Width CV 15.8 % (11.6-14.6); RBC Distribution Width SD 45.5 fl (35.1-43.9); Red Blood Count 4.42 M/mm3 (4.2-5.4); White Blood Count 14.4 K/mm3 (4.4-11.0)
[2023-08-17 17:56] LABS: Differential Indicated SCAN CRITERIA MET
[2023-08-17 18:19] LABS: Differential Comment SCANNED
[2023-08-17 18:36] LABS: Vitamin D,25 Hydroxy 57.3 ng/mL
[2023-08-17 18:39] LABS: Hemoglobin A1c 7.2 % (3.8-5.6)
[2023-08-17 18:43] LABS: ALB/GLOB Ratio 1.2 RATIO (0.9-2.4); AST(SGOT) 32 U/L (15-37); Alanine Aminotransfer ALT/SGPT 57 U/L (13-56); Albumin, Serum 3.7 g/dL (3.2-5.0); Alkaline Phosphatase 118 U/L (45-117); Anion Gap 7 (5-15); BUN 18 mg/dL (7-18); BUN/Creat Ratio 29.5 RATIO (10-20); Calcium,Total 9.3 mg/dL (8.5-10.1); Chloride 105 mmol/L (98-107); Cholesterol 202 mg/dL (200); Creatinine, Serum 0.61 mg/dL (0.55-1.02); EST Glomerular Filtration Rate 109 mL/min (>60); Est Glom Filt Rate - Afr Amer 132 mL/min (>60); Globulin 3.2 g/dL (2.2-4.2); Glucose 104 mg/dL (74-106); High Density Lipoprotein 60 mg/dL; Magnesium 2.2 mg/dL (1.6-2.6); Potassium 3.5 mmol/L (3.5-5.1); Protein, Total 6.9 g/dL (6.4-8.2); Sodium Level 140 mmol/L (136-145); Triglycerides 192 mg/dL; Very Low Density Lipoprotein 38 mg/dL (5-40)
[2023-08-21 09:48] LABS: Pathologist Review Reviewed
== END | disposition home or self-care (01) ==
LOC: MFPLAB 16:55
PROVIDERS: PCP Family Medicine; Visit Provider Family Medicine
DX: E11.8 Type 2 diabetes mellitus with unspecified complications (principal); E55.9 Vitamin D deficiency, unspecified
CPT/HCPCS: 36415; 80053; 80061; 82306; 83036; 83735; 85025

== ENCOUNTER → 2023-09-11 | Outpatient (CLI) | payer OTHER, SELFPAY ==
[2023-09-11 16:24] LABS: Bacteria 0 SEEN /hpf (None Seen); Mucous, Urine 0 SEEN /hpf (<or=2+); Red Blood Cells-Urine 0 SEEN /hpf (0-5); Squamous Epithelial Cells - UA 0 SEEN /hpf (5-10); White Blood Cells 0 SEEN /hpf (0-5)
[2023-09-11 16:59] LABS: Color, Urine Yellow (Yellow); Glucose, Dipstick Normal (Normal); Ketone-Dipstick Negative (Negative); Leukocyte Esterase-Dipstick Negative /ul (Negative); Nitrite-Dipstick Negative (Negative); Occult Blood-Urine Negative /ul (Negative); Protein-Dipstick 15 mg/dl (Negative); Specific Gravity, Urine 1.025 (1.002-1.030); Urine Bilirubin Dipstick Negative (Negative); Urine Clarity Clear (Clear); Urine Urobilinogen Normal (Normal)
[2023-09-11 17:15] LABS: Absolute Neutrophil Count 4.9 X10^3/uL (2.0-7.7); Basophil# 0.11 X10^3/uL; Basophil% 1.3 % (0-1); Eosinophil# 0.32 X10^3/uL; Eosinophils% 3.8 % (0-5); Hematocrit 38.4 % (37-47); Hemoglobin 11.5 g/dL (12.0-15.0); Lymphocyte % 26.4 % (19-41); Mean Corp Hgb Conc 29.9 g/dL (32-36); Mean Corpuscular Hgb 23.8 pg (27.0-32.0); Mean Corpuscular Volume 79.5 fL (81-99); Mean Platelet Vol. 10.7 fl (6.2-12.0); Monocyte# 0.75 X10^3/uL; NRBC Flagged by Analyzer 0 % (0-5); Neutrophil # 4.89 X10^3/uL (2.7-7.7); Neutrophil % 58.9 % (47-70); Platelet Count 349 K/mm3 (150-450); RBC Distribution Width CV 16.8 % (11.6-14.6); RBC Distribution Width SD 47.5 fl (35.1-43.9); Red Blood Count 4.83 M/mm3 (4.2-5.4); White Blood Count 8.3 K/mm3 (4.4-11.0)
[2023-09-11 17:30] LABS: Erythrocyte Sedimentation Rate 1 mm/hr (0-30)
[2023-09-11 18:20] LABS: ALB/GLOB Ratio 1.2 RATIO (0.9-2.4); AST(SGOT) 74 U/L (15-37); Alanine Aminotransfer ALT/SGPT 68 U/L (13-56); Albumin, Serum 4.2 g/dL (3.2-5.0); Alkaline Phosphatase 107 U/L (45-117); Anion Gap 6 (5-15); BUN 10 mg/dL (7-18); BUN/Creat Ratio 12.8 RATIO (10-20); CPK Total, Creatine Kinase 73 U/L (26-192); CRP < 2.90 mg/L (0.0-3.0); Calcium,Total 9.6 mg/dL (8.5-10.1); Chloride 108 mmol/L (98-107); Creatinine, Serum 0.78 mg/dL (0.55-1.02); EST Glomerular Filtration Rate 82 mL/min (>60); Est Glom Filt Rate - Afr Amer 99 mL/min (>60); Globulin 3.4 g/dL (2.2-4.2); Glucose 134 mg/dL (74-106); Potassium 4.1 mmol/L (3.5-5.1); Protein, Total 7.6 g/dL (6.4-8.2); Sodium Level 141 mmol/L (136-145)
[2023-09-11 18:49] LABS: Ferritin 26 ng/mL (8-252); Iron 35 ug/dL (50-170); Iron Binding Capacity,Total 535 ug/dL (250-450)
[2023-09-13 05:07] LABS: Complement C3 157 mg/dL (82-167)
== END | disposition home or self-care (01) ==
LOC: LAB 16:20
PROVIDERS: PCP Family Medicine; Referring Provider Internal Medicine Rheumatology; Visit Provider Internal Medicine Rheumatology
DX: M32.9 Systemic lupus erythematosus, unspecified (principal); R74.8 Abnormal levels of other serum enzymes; R76.8 Other specified abnormal immunological findings in serum; R79.89 Other specified abnormal findings of blood chemistry; Z78.0 Asymptomatic menopausal state; K75.81 Nonalcoholic steatohepatitis (NASH); M79.7 Fibromyalgia; M50.30 Other cervical disc degeneration, unspecified cervical region; M50.20 Other cervical disc displacement, unspecified cervical region; M51.36 Other intervertebral disc degeneration, lumbar region; M19.041 Primary osteoarthritis, right hand; M19.042 Primary osteoarthritis, left hand; M47.816 Spondylosis without myelopathy or radiculopathy, lumbar region; D72.829 Elevated white blood cell count, unspecified; E55.9 Vitamin D deficiency, unspecified; Z87.39 Personal history of other diseases of the musculoskeletal system and connective tissue; Z92.89 Personal history of other medical treatment; Z79.52 Long term (current) use of systemic steroids
CPT/HCPCS: 36415; 80053; 81001; 82550; 82728; 83540; 83550; 85025; 85652; 86140; 86160; 87086

== ENCOUNTER → 2023-10-17 | Outpatient (CLI) | payer OTHER, SELFPAY ==
--- NOTE | 2023-10-17 14:04 | CT_ITS ---
STUDY: CT ABDOMEN WITH CONTRAST REASON FOR EXAM: Female, 53 years old. Abdominal pain and distention RADIATION DOSAGE (If Supplied By Facility): CTDIvol = ( 16.84 ) mGy, DLP = ( 612.35 ) mGycm TECHNIQUE: Transaxial images were obtained post I.V. administration of IV 100mL Isovue-370, and with oral contrast. Sagittal and coronal images were reconstructed. Individualized dose optimization techniques were used for this CT. COMPARISON: 02/28/2021 FINDINGS: The visualized lung bases are unremarkable. The visualized portions of the heart are within normal limits. There is decreased attenuation of the liver consistent with steatosis. Normal gallbladder and extrahepatic biliary system. Normal spleen. Normal pancreas. Normal bilateral adrenal glands. Normal right kidney. Normal left kidney. Normal visualized stomach. Normal small intestine. Normal colon. The appendix is visualized and appears normal. Appendix seen on coronal recon images 68 through 75 Normal abdominal aorta. Normal inferior vena cava. Normal retroperitoneum. Normal abdominal wall. Normal osseous structures. CT/Abdomen WITH IV Contrast IMPRESSION: Fatty liver, no discrete lesion No free intraperitoneal fluid, air, or suspicious adenopathy, normal appendix visualized No interval change Electronically Signed: Dao Chand MD at 16:51 EST ,
--- OUTSIDE RECORDS SUMMARY | 2023-10-17 14:26 | XMS RPT_ITS | CCD ---
Author Name Unknown Address [address] [facility] [address] [facility] [address] [place] [address] Organization [facility] Care Team Providers Care Product Design Engineer Name Role Phone Grzegorz Mc Unavailable Grzegorz Mc Unavailable Grzegorz Mc Primary Care Provider Grzegorz Mc Unavailable Grzegorz Mc Primary Care Provider [phone] Grzegorz Mc Unavailable [phone] Grzegorz Mc Primary Care Provider [phone] Grzegorz Mc Unavailable [phone] Grzegorz Mc Primary Care Provider NICOLAS THORNE Referring Unavailable GRZEGORZ MC Primary Care Unavailabl e Grzegorz Mc Unavailable GRZEGORZ MC Primary Care Unavailable GRZEGORZ MC Primary Care Unavailable GRZEGORZ MC Primary Care Unavailable SELF, SELF Referring Unavailable STU, EUSEBIO Attending Unavailable GRZEGORZ MC Primary Care Unavailable SELF, SELF Referring Unavailable NICOLAS FINNEGAN JR. Attending UnavailGRZEGORZ Mullins Primary Care Unavailable SELF, SELF Referring Unavailable NICOLAS FINNEGAN JR. Attending Unavaila GRZEGORZ Garces Primary Care Unavailable SELF, SELF Referring Unavailable STU, EUSEBIO Attending Unavailable GRZEGORZ MC Primary Care Unavailable NICOLAS FINNEGAN JR. Attending UnavailGRZEGORZ Mullins Primary Care Unavailable SELF, SELF Referring Unavailable GRZEGORZ MC Primary Care Unavailable GRZEGORZ MC Primary Care Unavailable GRZEGORZ MC Primary Care Unavailable Grzegorz Mc MD Unavailable Grzegorz Mc MD Primary Care Provider DYLON REA Attending Unavailable GRZEGORZ MC Primary Care Unavailable Allergies Allergy Classification Reported Allergen(s) Allergy Type Date of Onset Reaction(s) Facility (20 sources) HYDROcodone; Translations: [HYDROCODONE] Drug Allergy 7 Nausea and Vomiting, Other: See Comments [facility] Work Phone: (14 sources) SULFA ANTIBIOTICS Propensity to adverse reactions to drug 7 [facility] Work Phone: (20 sources) Dust; Translations: [DUST] Propensity to adverse reactions 0 Other: See Comments [facility] (20 sources) Sulfonamides (Antibiotic); Translations: [SULFA (SULFONAMIDE ANTIBIOTICS)] Drug Allergy [address] [facility] (20 sources) Animal Dander; Translations: [ANIMAL DANDER] Propensity to adverse reactions to drug 0 Other: See Comments [facility] Medications Current Medications Medication Drug Class(es) Dates Sig (Normalized) Sig (Original) atomoxetine 40 mg oral capsule (20 sources) Norepinephrine Reuptake Inhibitor Start: 11-29-2019 atomoxetine 40 MG capsule Completed/Discontinued Medications Medication Drug Class(es) Dates Sig (Normalized) Sig (Original) [id number] 200 actuat albuterol 0.09 mg/actuat metered dose inhaler (20 sources) beta2-Adrenergic Agonist take 2 puff(s) by inhalation every four hours as needed albuterol HFA (PROVENTIL HFA, VENTOLIN HFA) 90 mcg/actuation inhaler Inhale 2 Puffs as instructed every 4 hours as needed. 0 Active Problems Active Problems Problem Classification Problem Date Documented Da te Episodic/Chronic Asthma (20 sources) Mild persistent asthma, uncomplicated; Translations: [Uncomplicated mild persistent asthma] Onset: 7 08-19-2018 Chronic Cardiac dysrhythmias (14 sources) Paroxysmal tachycardia; Translations: [Paroxysmal tachycardia, unspecified] Onset: 7 07-24-2018 Chronic Diabetes mellitus without complication (6 sources) Glycosuria; Translations: [Hyperglycemia, unspecified] Onset: 9 Resolved: 0 07-21-2019 Episodic Diseases of white blood cells (6 sources) Leukocytosis; Translations: [Elevated white blood cell count, unspecified] Onset: 0 12-01-2019 Chronic Disorders of lipid metabolism (20 sources) Hyperlipidemia; Translations: [Other hyperlipidemia] Onset: 0 04-23-2020 Chronic Esophageal disorders (20 sources) Gastroesophageal reflux disease without esophagitis; Translations: [Gastro-esophageal reflux disease without esophagitis] Onset: 0 04-23-2020 Chronic Genitourinary symptoms and ill-defined conditions (2 sources) Persistent proteinuria, unspecified; Translations: [Persistent proteinuria, unspecified] Onset: 3 Episodic Headache; including migraine (20 sources) Chronic tension-type headache; Translations: [Chronic tension-type headache, not intractable] Onset: 7 07-24-2018 Chronic Hepatitis (2 sources) Nonalcoholic steatohepatitis (FIGUEROA); Translations: [Nonalcoholic steatohepatitis (FIGUEROA)] Onset: 2 Chronic Miscellaneous mental health disorders (20 sources) Primary insomnia; Translations: [Primary insomnia] Onset: 8 07-24-2018 Chronic Mood disorders (20 sources) Major depression, single episode; Translations: [Depressive disorder] Onset: 7 07-24-2018 Chronic Nutritional deficiencies (20 sources) Vitamin D deficiency; Translations: [Vitamin D deficiency, unspecified] Onset: 8 Resolved: 9 08-19-2018 Chronic Osteoarthritis (20 sources) Degenerative joint disease of hand; Translations: [Primary osteoarthritis, right hand] Onset: 8 08-19-2018 Chronic Osteoarthritis (16 sources) Osteoarthritis of joint of right hand; Translations: [Osteoarthritis of joint of left hand] Onset: 8 08-19-2018 Other bone disease and musculoskeletal deformities (8 sources) Osteochondropathy; Translations: [Disorder of bone and cartilage] Onset: 8 07-24-2018 Chronic Other bone disease and musculoskeletal deformities (6 sources) Disorder of skeletal system; Translations: [Disorder of bone and cartilage] Onset: 8 07-24-2018 Chronic Other circulatory disease (20 sources) History of paroxysmal supraventricular tachycardia; Translations: [Personal history of other diseases of the circulatory system] 07-27-2021 Episodic Other connective tissue disease (20 sources) H/O: musculoskeletal disease; Translations: [History of fibromyalgia] Onset: 8 Resolved: 8 07-24-2018 Episodic Other connective tissue disease (10 sources) Pain in right hand; Translations: [Pain in right hand] Onset: 8 08-19-2018 Other connective tissue disease (10 sources) Bilateral rotator cuff tendinitis; Translations: [Tendonitis of both rotator cuffs] Onset: 8 07-24-2018 Other connective tissue disease (10 sources) Pain of bilateral hands; Translations: [Bilateral hand pain] Onset: 8 07-24-2018 Other connective tissue disease (10 sources) Trochanteric bursitis of left hip; Translations: [Trochanteric bursitis, left hip] Onset: 8 08-19-2018 Other connective tissue disease (10 sources) Trochanteric bursitis of right hip; Translations: [Trochanteric bursitis, right hip] Onset: 8 08-19-2018 Other connective tissue disease (10 sources) Pain of left hand; Translations: [Pain in left hand] Onset: 8 08-19-2018 Other female genital disorders (20 sources) Abnormal uterine and vaginal bleeding, unspecified; Translations: [Abnormal uterine bleeding] Onset: 8 07-24-2018 Chronic Other female genital disorders (20 sources) Dysplasia of cervix; Translations: [Dysplasia of cervix uteri, unspecified] Onset: 8 07-24-2018 Episodic Other gastrointestinal disorders (20 sources) Irritable bowel syndrome; Translations: [Mixed irritable bowel syndrome] Onset: 0 04-23-2020 Chronic Other gastrointestinal disorders (6 sources) Irritable bowel syndrome characterized by constipation; Translations: [Irritable bowel syndrome with constipation] Chronic Other liver diseases (2 sources) Fatty (change of) liver, not elsewhere classified; Translations: [Fatty (change of) liver, not elsewhere classified] Onset: 2 Chronic Other liver diseases (2 sources) Abnormal levels of other serum enzymes; Translations: [Abnormal levels of other serum enzymes] Onset: 3 Episodic Other non-traumatic joint disorders (10 sources) Pain of left wrist; Translations: [Pain in left wrist] Onset: 8 08-19-2018 Other non-traumatic joint disorders (10 sources) Pain in right hip joint; Translations: [Pain in right hip] Onset: 8 08-19-2018 Other non-traumatic joint disorders (10 sources) Pain of right wrist; Translations: [Pain in right wrist] Onset: 8 08-19-2018 Other non-traumatic joint disorders (10 sources) Bilateral wrist pain; Translations: [Bilateral wrist pain] Onset: 8 07-24-2018 Other nutritional; endocrine; and metabolic disorders (2 sources) Obesity, unspecified; Translations: [Obesity (BMI 30.0-34.9)] Onset: 9 11-20-2018 Chronic Other nutritional; endocrine; and metabolic disorders (20 sources) Obesity; Translations: [Other obesity due to excess calories] Onset: 0 04-23-2020 Chronic Other nutritional; endocrine; and metabolic disorders (6 sources) Obesity caused by energy imbalance; Translations: [Other obesity due to excess calories] Onset: 0 04-23-2020 Chronic Other nutritional; endocrine; and metabolic disorders (2 sources) Hypercalcemia; Translations: [Hypercalcemia] Onset: 3 Chronic Other nutritional; endocrine; and metabolic disorders (14 sources) Autoantibody level - finding; Translations: [Positive double stranded DNA antibody test] Onset: 8 08-19-2018 Episodic Other nutritional; endocrine; and metabolic disorders (10 sources) Obese class I; Translations: [Obesity (BMI 30.0-34.9)] Onset: 9 11-20-2018 Residual codes; unclassified (20 sources) Chronic pain; Translations: [Other chronic pain] Onset: 8 08-19-2018 Chronic Residual codes; unclassified (2 sources) Asymptomatic menopausal state; Translations: [Asymptomatic menopausal state] Onset: 3 Episodic Spondylosis; intervertebral disc disorders; other back problems (20 sources) Degeneration of cervical intervertebral disc; Translations: [Degeneration of lumbar intervertebral disc] Onset: 8 07-24-2018 Chronic Spondylosis; intervertebral disc disorders; other back problems (6 sources) Herniation of nucleus pulposus of cervical intervertebral disc; Translations: [HNP (herniated nucleus pulposus), cervical] Onset: 9 07-21-2019 Systemic lupus erythematosus and connective tissue disorders (20 sources) Systemic lupus erythematosus, unspecified; Translations: [Systemic lupus erythematosus] Onset: 8 07-24-2018 Chronic Unclassified (18 sources) History of clinical finding in subject; Translations: [History of positive double stranded DNA antibody test] Onset: 8 07-24-2018 Unclassified (20 sources) Patient encounter status; Translations: [penitentiary current use of non-steroidal anti-inflammatories (NSAID)] Onset: 7 Resolved: 9 07-24-2018 Unclassified (4 sources) Screening status; Translations: [Encounter for screening for malignant neoplasm of cervix] Onset: 8 07-24-2018 Unclassified (14 sources) Viral antibody level - finding; Translations: [Hepatitis A antibody positive] Onset: 8 08-19-2018 Past or Other Problems Problem Classification Problem Date Documented Da te Episodic/Chronic Cardiac dysrhythmias (20 sources) Tachycardia; Translations: [Tachycardia, unspecified] Onset: 04-23-2020 04-23-2020 Episodic Deficiency and other anemia (14 sources) Anemia; Translations: [Anemia, unspecified] Onset: 08-28-2017 Resolved: 08-19-2018 08-19-2018 Episodic Fluid and electrolyte disorders (17 sources) Hypokalemia; Translations: [Hypokalemia] Onset: 08-19-2018 Resolved: 12-01-2019 08-19-2018 Episodic Hepatitis (14 sources) Viral hepatitis C; Translations: [Viral hepatitis C without hepatic coma] Onset: 08-08-2018 Resolved: 08-19-2018 08-19-2018 Episodic Immunizations and screening for infectious disease (20 sources) Hepatitis B antibody present; Translations: [Other specified abnormal immunological findings in serum] Onset: 06-13-2018 Resolved: 03-19-2019 08-19-2018 Episodic Malaise and fatigue (20 sources) Fatigue; Translations: [Other fatigue] Onset: 07-24-2018 08-19-2018 Episodic Nausea and vomiting (14 sources) Nausea; Translations: [Nausea] Onset: 01-09-2018 07-24-2018 Episodic Other aftercare (2 sources) buttermaker continuous churn (current) use of antibiotics; Translations: [buttermaker continuous churn (current) use of antibiotics] Onset: 12-01-2019 Episodic Other aftercare (2 sources) penitentiary (current) use of systemic steroids; Translations: [penitentiary (current) use of systemic steroids] Onset: 03-18-2021 Episodic Other bone disease and musculoskeletal deformities (14 sources) Cartilage disorder; Translations: [Disorder of cartilage, unspecified] Onset: 07-24-2018 08-19-2018 Episodic Other bone disease and musculoskeletal deformities (14 sources) Disorder of bone; Translations: [Disorder of bone, unspecified] Onset: 07-24-2018 08-19-2018 Episodic Other connective tissue disease (20 sources) Soft tissue lesion of shoulder region; Translations: [Other shoulder lesions, left shoulder] Onset: 07-24-2018 Resolved: 11-20-2018 08-19-2018 Episodic Other connective tissue disease (4 sources) Trochanteric bursitis, left hip; Translations: [Trochanteric bursitis, left hip] Onset: 07-24-2018 08-19-2018 Episodic Other connective tissue disease (14 sources) Myositis; Translations: [Myositis, unspecified] Onset: 08-28-2017 Resolved: 07-24-2018 07-24-2018 Episodic Other connective tissue disease (4 sources) Other shoulder lesions, right shoulder; Translations: [Tendonitis of both rotator cuffs] Onset: 07-24-2018 07-24-2018 Episodic Other connective tissue disease (14 sources) Subacromial bursitis; Translations: [Subacromial bursitis] Onset: 07-24-2018 07-24-2018 Episodic Other connective tissue disease (20 sources) Fibromyalgia; Translations: [Fibromyalgia] Onset: 04-10-2017 08-19-2018 Episodic Other connective tissue disease (8 sources) Pain in right hand; Translations: [Bilateral hand pain] Onset: 07-24-2018 07-24-2018 Episodic Other connective tissue disease (7 sources) Personal history of other diseases of the musculoskeletal system and connective tissue; Translations: [History of systemic lupus erythematosus (SLE)] Onset: 07-24-2018 07-24-2018 Episodic Other connective tissue disease (4 sources) Trochanteric bursitis, right hip; Translations: [Trochanteric bursitis, right hip] Onset: 07-24-2018 08-19-2018 Episodic Other connective tissue disease (4 sources) Pain in left hand; Translations: [Pain in left hand] Onset: 07-24-2018 08-19-2018 Episodic Other connective tissue disease (14 sources) Trochanteric bursitis; Translations: [Greater trochanteric bursitis of both hips] Onset: 07-24-2018 07-24-2018 Episodic Other connective tissue disease (14 sources) Bursitis of shoulder; Translations: [Bursitis of unspecified shoulder] Onset: 07-24-2018 08-19-2018 Episodic Other disorders of stomach and duodenum (20 sources) Gastroparesis syndrome; Translations: [Gastroparesis] Onset: 06-13-2018 08-19-2018 Episodic Other gastrointestinal disorders (14 sources) Abdominal distension (gaseous); Translations: [Abdominal distension, gaseous] Onset: 01-09-2018 07-24-2018 Episodic Other non-traumatic joint disorders (4 sources) Pain in left wrist; Translations: [Pain in left wrist] Onset: 07-24-2018 08-19-2018 Episodic Other non-traumatic joint disorders (20 sources) Shoulder pain; Translations: [Chronic pain of both shoulders] Onset: 07-24-2018 07-24-2018 Episodic Other non-traumatic joint disorders (8 sources) Pain in right wrist; Translations: [Bilateral wrist pain] Onset: 07-24-2018 07-24-2018 Episodic Other non-traumatic joint disorders (20 sources) Hip pain; Translations: [Bilateral hip pain] Onset: 07-24-2018 07-24-2018 Episodic Other non-traumatic joint disorders (4 sources) Pain in right hip; Translations: [Pain in right hip] Onset: 07-24-2018 08-19-2018 Episodic Other non-traumatic joint disorders (6 sources) Disorder of shoulder; Translations: [Other shoulder lesions, right shoulder] Onset: 07-24-2018 Resolved: 11-20-2018 11-20-2018 Episodic Other nutritional; endocrine; and metabolic disorders (15 sources) Hyperuricemia; Translations: [Hyperuricemia] Onset: 08-19-2018 Resolved: 03-19-2019 08-19-2018 Episodic Other screening for suspected conditions (not mental disorders or infectious disease) (20 sources) AIR POLLUTION SPECIALIST antibody positive; Translations: [Breast neoplasm screening status] Onset: 09-17-2017 07-24-2018 Episodic Residual codes; unclassified (17 sources) FH: Diabetes mellitus; Translations: [Other specified health status] Onset: 08-28-2017 07-24-2018 Episodic Residual codes; unclassified (13 sources) Unspecified problems with limbs and other problems; Translations: [Problem] Onset: 07-24-2018 07-24-2018 Episodic Residual codes; unclassified (13 sources) Other specified health status; Translations: [Other specified health status] Onset: 07-24-2018 08-19-2018 Episodic Residual codes; unclassified (20 sources) History of clinical finding in subject; Translations: [Personal history of other medical treatment] Onset: 06-13-2018 06-13-2018 Episodic Residual codes; unclassified (2 sources) Personal history of other medical treatment; Translations: [Personal history of other medical treatment] Onset: 07-24-2018 Episodic Spondylosis; intervertebral disc disorders; other back problems (20 sources) Thoracic back pain; Translations: [Low back pain] Onset: 07-22-2018 07-24-2018 Episodic Unclassified (11 sources) Immune system finding; Translations: [Other specified abnormal immunological findings in serum] Onset: 07-24-2018 Resolved: 03-19-2019 03-19-2019 Urinary tract infections (14 sources) Urinary tract infectious disease; Translations: [Urinary tract infection] Onset: 04-04-2018 07-24-2018 Episodic Results Test Name Value Interpretation Reference Range Facil ity Vital Signs Date Time Vital Sign Value Performing Clinician Paula rizzo 07-31-2022 12:15-0400 Diastolic blood pressure 66 mm[Hg] Dylon Rea DO Work Phone: [facility] 07-31-2022 12:15-0400 Heart rate 88 /min Dylon Rea DO Work Phone: [facility] 07-31-2022 12:15-0400 Respiratory rate 30 /min Dylon Rea DO Work Phone: [facility] 07-31-2022 12:15-0400 SaO2% (BldA) [Mass fraction] 96 % Dylon Rea DO Work Phone: [facility] 07-31-2022 12:15-0400 Systolic blood pressure 110 mm[Hg] Dylon Rea DO Work Phone: [facility] 07-31-2022 11:52-0400 Body temperature 97 [degF] Dylon Rea DO Work Phone: [facility] 07-31-2022 10:30-0400 Body height 152.4 cm Dylon Rea DO Work Phone: [facility] 07-31-2022 10:30-0400 Body weight 74.84 kg Dylon Rea DO Work Phone: [facility] 07-11-2022 14:48-0400 Body height 154.9 cm Dylon Rea DO Work Phone: [facility] 07-11-2022 14:48-0400 Body weight 75.48 kg Dylon Rea DO Work Phone: [facility] 07-11-2022 14:48-0400 Diastolic blood pressure 78 mm[Hg] Dylon Rea DO Work Phone: [facility] 07-11-2022 14:48-0400 Heart rate 94 /min Dylon Rea DO Work Phone: [facility] 07-11-2022 14:48-0400 Systolic blood pressure 120 mm[Hg] Dylon Rea DO Work Phone: [facility] 12-01-2019 16:12-0500 BMI (Body Mass Index) 31.83 kg/m2 [facility] 12-01-2019 16:12-0500 Body Temperature 98.4 [degF] [facility] 12-01-2019 16:12-0500 Body weight 73.[address] [facility] 12-01-2019 16:12-0500 BP Diastolic 68 mm[Hg] [facility] 12-01-2019 16:12-0500 BP Systolic 124 mm[Hg] [facility] 12-01-2019 16:12-[address] [facility] 12-01-2019 16:12-0500 Pulse (Heart Rate) 97 /min [facility] 12-01-2019 16:12-0500 Pulse Oximetry 97 % [facility] 12-01-2019 16:12-0500 Respiratory Rate 20 /min [facility] 07-21-2019 16:03-0400 BMI (Body Mass Index) 31.91 kg/m2 [facility] 07-21-2019 16:03-0400 Body Temperature 96.69 [degF] [facility] 07-21-2019 16:03-0400 Body weight 74.[address] [facility] 07-21-2019 16:03-0400 BP Diastolic 72 mm[Hg] [facility] 07-21-2019 16:03-0400 BP Systolic 124 mm[Hg] [facility] 07-21-2019 16:03-0400 Pulse (Heart Rate) 96 /min [facility] 07-21-2019 16:03-0400 Pulse Oximetry 98 % [facility] 03-19-2019 15:24-0400 BMI (Body Mass Index) 30.15 kg/m2 [facility] 03-19-2019 15:24-0400 Body Temperature 97.81 [degF] [facility] 03-19-2019 15:24-0400 Body weight 70.[address] [facility] 03-19-2019 15:24-0400 BP Diastolic 76 mm[Hg] [facility] 03-19-2019 15:24-0400 BP Systolic 112 mm[Hg] [facility] 03-19-2019 15:24-0400 Pulse (Heart Rate) 100 /min [facility] 03-19-2019 15:24-0400 Pulse Oximetry 97 % [facility] 11-20-2018 14:21-0500 BMI (Body Mass Index) 30.43 kg/m2 Nicolas Finnegan [facility] 11-20-2018 14:21-0500 Body Temperature 97.9 [degF] [facility] 11-20-2018 14:-0500 Body weight 70.[address] [facility] 11-20-2018 14:21-0500 BP Diastolic 82 mm[Hg] [facility] 11-20-2018 14:21-0500 BP Systolic 118 mm[Hg] [facility] 11-20-2018 14:21-[address] [facility] 11-20-2018 14:-0500 Pulse (Heart Rate) 87 /min [facility] 11-20-2018 14:0500 Pulse Oximetry 98 % [facility] 11-20-2018 14:-0500 Respiratory Rate 16 /min [facility] Encounters Encounter Date Encounter Type Care Provider Facility Start: 12-03-2023 ambulatory NICOLAS FINNEGAN [facility] Start: 08-20-2023 Telephone encounter Dylon Rea DO Work Phone: Gastroenterology Procedures Date Procedure Procedure Detail Performing Clinician Start: 07-31-2022 Colonoscopy flx dx w /collj spec when pfrmd Dylon Rea DO Work Phone: Start: 07-31-2022 Gluc bld gluc mntr d ev cleared fda spec home use Dylon Rea DO Work Phone: Start: 07-31-2022 Colonoscopy Dylon Will crow DO Work Phone: Start: 11-20-2018 LABS (OUTSIDE) Nicolas Finnegan Work Phone: Start: 07-26-2018 End: 07-26-2018 LABS (OUTSIDE) Historical Provider Start: 07-24-2018 End: 07-24-2018 LABS (OUTSIDE) Other Other Plan of Treatment Date Care Activity Detail Author Start: 08-31-2024 Diabetes Screening Diabetes Screening [facility] Start: 07-31-2023 Colonoscopy [address] [facility] Start: 07-31-2023 COLORECTAL CANCER SCREENING COLORECTAL CANCER SCREENING [facility] Start: 06-08-2023 Influenza vaccination [facility] Start: 04-23-2023 DIABETES SCREEN DIABETES SCREEN [facility] Start: 04-23-2023 Diabetes Screening Diabetes Screening [facility] Start: 06-08-2022 Influenza vaccination [facility] Start: 04-09-2021 COVID-19 VACCINE (3 - Booster for Moderna series) COVID-19 VACCINE (3 - Booster for Moderna series) [facility] Start: 12-08-2020 COVID-19 VACCINE (3 - Moderna risk series) COVID-19 VACCINE (3 - Moderna risk series) [facility] Start: 2020 SHINGRIX VACCINE (1 of 2) SHINGRIX VACCINE (1 of 2) [facility] Start: 06-02-2020 End: 06-02-2020 Office Visit 06/02/2020 Office Visit Rheumatology Kain Mendes, Nicolas Cannon DO [address] [place] [phone] [facility] Start: 05-17-2020 End: 12-01-2020 C3 COMPLEMENT C3 COMPLEMENTLabRoutineSyste kishore lupus erythematosus, unspecified SLE type, unspecified organ involvement statusAnti-AIR POLLUTION SPECIALIST antibodies presentHepatitis A antibody positiveHepatitis B antibody positiveHepatitis C antibody positive in bloodHistory of fibromyalgiaHistory of positive double stranded DNA antibody testHistory of systemic lupus erythematosus (SLE)penitentiary (current) use of antibioticsLong term (current) use of non-steroidal anti-inflammatories (nsaid)Positive SAVANNA (antinuclear antibody)Positive double stranded DNA antibody testGastroparesisVitamin D deficiencyFibromyalgiaDDD (degenerative disc disease), cervicalHNP (herniated nucleus pulposus), cervicalLumbar degenerative disc diseaseOsteoarthritis of both hands, unspecified osteoarthritis typeOsteoarthritis of lumbar spine, unspecified spinal osteoarthritis complication statusOther cervical disc degeneration, unspecified cervical regionOther intervertebral disc degeneration, lumbar regionPrimary osteoarthritis, left handPrimary o (more content not included)... [facility] Immunizations Immunization Date Immunization Notes Care Provider Fa cility 08-17-2022 influenza virus vaccine, unspecified formulation Dylon Rea DO Work Phone: [facility] 08-14-2017 influenza virus vaccine, unspecified formulation Other Other [facility] Work Phone: Payers Date Payer Category Payer Private Health Insurance [facility] PLUS [id number] 2021-Present [phone] [address] [place] [address] HMO [id number] 2021 Private Health Insurance [facility] CHOICE PLUS [id number] 2021-Present [phone] [address] [place] [address] HMO [id number] 2021 Unknown [id number] 2020 Unknown [id number] 2019 Unknown ANTHEM BLUE [employer] SS PPO [id number] 2019-Present [phone] [address] [place] [address] PPO [id number] 2017 Unknown ANTHEM ANTHEM HM O PPO POS xxxxxxxxxxxx 2017-Present [id number] 1970 Unknown [id number] 1970 Unknown [id number] .983 1970 Unknown [id number] .983 1970 Unknown [id number] .983 1970 Unknown [id number] .983 1970 Unknown [id number] .983 1970 Unknown [id number] [id number] .983 1970 Unknown [id number] [id number] .983 1970 Unknown [id number] [id number] .983 1970 Unknown [id number] .983 1970 Unknown [id number] [id number] Social History Date Type Detail Facility Start: 08-19-2018 End: 02-26-2023 Tobacco smoking status NHIS Former smoker [facility] Sex Assigned At Not on file [facility] Work Phone: Start: 07-21-2019 End: 02-26-2023 Alcohol intake No [facility] Start: 07-21-2019 End: 12-01-2019 Alcohol intake Current non-drinker of alcohol (finding) [facility] End: 10-07-1995 History of tobacco use Current smoker [facility] End: 10-07-1995 History of tobacco use Cigarette Smoker [facility] Start: 04-10-2017 End: 02-26-2023 Cigarettes smoked current (pack per day) - Reported 0.[address] [facility] Start: 04-10-2017 End: 02-26-2023 Tobacco use and exposure Smokeless tobacco non-user [facility] Start: 08-04-2021 End: 02-26-2023 Alcohol intake Current drinker of alcohol (finding) [facility] Start: 03-04-2020 End: 10-07-2020 History SDOH Alcohol Frequency [address] [facility] Start: 03-04-2020 End: 10-07-2020 History SDOH Alcohol Std Drinks [address] [facility] Start: 03-04-2020 History SDOH Social Connections Phone [address] [facility] Start: 03-04-2020 History SDOH Physical Activity DPW [address] [facility] Start: 03-04-2020 History SDOH Stress [address] [facility] Start: 1970 Sex Assigned At Female [facility] Start: 04-21-2022 End: 07-31-2022 Exposure to SARS-CoV-2 (event) Not sure [facility] National Score (1-10 0), lower number is lower risk [address] [facility] Start: 02-01-2020 Gender identity Identifies as female gender (finding) [facility] Start: 02-01-2020 Sexual orientation Heterosexual (finding) [facility] Do you belong to any clubs or organizations such as taoist groups, [employer], [employer] or athletic groups, or school groups? No [facility] Are you now , , , , never or living with a partner? [facility] How often to you hav e a drink containing alcohol? Monthly or less [facility] How many standard dr inks containing alcohol do you have on a typical day? 1 or [address] [facility] How often do you hav e 6 or more drinks on 1 occasion? Never [facility] Do you feel stress - tense, restless, nervous, or anxious, or unable to sleep at night because your mind is troubled all the time - these days [OSQ] To some extent [facility] (I/We) worried wheth er (my/our) food would run out before (I/we) got money to buy more. Never true [facility] Clinical Notes 01-24-2022 to 08-21-2023 Telephone Encounter - Ilda Jones LPN - 08/21/2023 9:25 AM ESTTelephone Encounter - Shefali Downey - 08/20/2023 10:24 AM ESTTelephone Encounter - Dedra Lao LPN - 06/07/2023 7:57 AM EDT Note Date & Type Note Facility 08-21-2023 Miscellaneous Notes office notes from 07/10/2023 and 07/11/2022 faxed to [phone] with ok results. Sarita calling from [facility] Physicians calling regarding this patient. Requesting Dr. Rea's office notes and any lab results to be faxed to her primary care physician Dr. Mc. Please fax to [phone]. Call with any questions to [phone]. documented in this encounter [facility] 07-10-2023 Note HNO ID: [id number] Author: Dylon Rea, DO Service: ? Author Type: Physician Type: Progress Notes Filed: 07/10/2023 2:47 PM Note Text: FOLLOW UP VISIT CHIEF COMPLAINT Patient presents with: Follow Up Ms. Hernandez is here today for follow-up of: constipation. HPI I saw this 52y/o in f/u for her gi issues. She was last seen 07/2022. She has been using Ibsrela as well as Bisacodyl for the bowels. The post pop GES was borderline at 16%at 4hrs. The lupus is affecting the kidney. Current Outpatient Medications Medication Sig Dispense Refill dilTIAZem CD (CARDIZEM CD, CARTIA XT) 300 mg 24 hr capsule Take 1 capsule by mouth once daily 90 capsule 3 tenapanor (IBSRELA) 50 mg tablet Take 1 tablet (50 mg) by mouth twice daily. 60 tablet 5 sertraline (ZOLOFT) 50 mg tablet TAKE 1/2 (ONE-HALF) TABLET BY MOUTH ONCE DAILY FOR 6 DAYS AND THEN INCREASE TO A WHOLE TABLET DAILY mycophenolate mofetil (CELLCEPT) 250 mg capsule Take by mouth twice daily. erenumab-aooe (AIMOVIG AUTOINJECTOR) 140 mg/mL auto-injector Inject 140 mg subcutaneously once every month. Do not shake. folic acid 400 mcg tablet Take 200 mcg by mouth once daily. budesonide-formoterol (SYMBICORT) 160-4.5 mcg/actuation inhaler Inhale 2 Puffs as instructed once daily. magnesium oxide (MAG-OX) 400 mg (241.3 mg magnesium) tablet Take two tablets by mouth once daily. metFORMIN (GLUCOPHAGE) 500 mg tablet 500 mg once daily. rosuvastatin (CRESTOR) 10 mg tablet Take 10 mg by mouth once daily. tiZANidine (ZANAFLEX) 2 mg tablet Take 4 mg by mouth every 6 hours as needed. albuterol HFA (PROVENTIL HFA, VENTOLIN HFA) 90 mcg/actuation inhaler Inhale 2 Puffs as instructed every 4 hours as needed. loratadine (CLARITIN) 10 mg tablet Take 10 mg by mouth once daily. atomoxetine (STRATTERA) 40 mg capsule Take 40 mg by mouth twice daily. L.acid/B.bifidum/B.animal/FOS (PROBIOTIC COMPLEX ORAL) Take by mouth. potassium (POTASSIMIN ORAL) Take 30 mEq by mouth once daily. cholecalciferol (VITAMIN D3) 5,000 unit tab Take 2,000 Units by mouth once daily. belimumab (BENLYSTA) 200 mg/mL AutoInjector Inject 200 mg subcutaneously one time a week. guaifenesin/pseudoephedrne HCl (MUCINEX D ORAL) once daily. rizatriptan (MAXALT) 5 mg tablet as needed. DEXLANSOPRAZOLE (DEXILANT ORAL) Take 60 mg by mouth once daily. Erythromycin 250 mg cpDR Take 1 capsule by mouth before meals and at bedtime. 120 capsule 5 Erythromycin 250 mg cpDR TAKE 1 CAPSULE BY MOUTH BEFORE MEALS AND AT BEDTIME 120 capsule 0 DULOXETINE HCL (CYMBALTA ORAL) Take by mouth. 60 mg in the morning No current facility-administered medications for this visit. ALLERGIES Allergen Reactions Animal Dander Other: See Comments Sinus problems Dust Other: See Comments Hydrocodone Other: See Comments Sulfa (Sulfonamide * Hives Social History Tobacco Use Smoking status: Former Packs/day: 0.30 Years: 3.00 Additional pack years: 0.00 Total pack years: 0.90 Types: Cigarettes Quit date: 10/07/1995 Years since quittin.7 Smokeless tobacco: Never Vaping Use Vaping Use: Never used Substance Use Topics Alcohol use: Yes Drug use: Never Medical History: No changes since last visit. REVIEW OF SYSTEMS: GENERAL: weight stable, no fevers. CARDIOVASCULAR: No chest pain, no edema RESPIRATORY: No dyspnea : neg [employer] SUPER[employer]: neg The remainder of the review of systems are negative. Reviewed with patient during visit today. PHYSICAL EXAMINATION: BP 112/68 Ht 5' 0 (1.52m) Wt 169 lb 8.5 oz (76.9kg) LMP 06/28/2022 BMI 33.11 kg/(m2). GENERAL APPEARANCE: Well developed and well nourished. SKIN: Skin color, texture, turgor normal. No rashes or lesions. EYES: Conjunctiva normal without icterus. OROPHARYNX: lips, mucosa, and tongue normal, teeth and gums normal NECK: Supple, full range of motion, no lymphadenopathy, normal thyroid, no carotid bruits and no JVD LUNGS: Normal breath sounds, Clear to auscultation, No wheezes, No crackles. HEART:Normal PMI, Regular rate and rhythm, Normal heart sounds, S1 and S2 and No murmurs. NEURO: Alert and oriented in no acute distress. ABDOMEN: Normal bowel sounds, abdomen flat with no distention, Soft, non-tender, no hepatomegaly. no palpable masses, no abdominal bruits, no rebound and no rigidity. EXTREMITIES:Extremities normal, No deformities, No skin discoloration, No edema . Assessment Encounter Diagnosis ICD-10-CM 1. Irritable bowel syndrome with both constipation and diarrhea K58.2 2. Gastroparesis K31.84 Erythromycin 250 mg cpDR Continue the Ibsrela and add miralax daily. Dylon Rea, 07/10/2023 [facility] 07-05-2023 Miscellaneous Notes Name of medication: Erythromycin Name of ordering provider: Dr. Rea LOUISA: 07/11/2022 LDH: Visit date not found NOV: 07/10/2023 NDH: visit date not found Spoke with patient - confirmed patient is requesting refill. Yes Has patient been seen within the year? Yes Pharmacy updated: Yes Medication pended - please file if appropriate. documented in this encounter [facility] 06-07-2023 Miscellaneous Notes Patient's request for medication is as follows: Requested Prescriptions Pending Prescriptions Disp Refills dilTIAZem CD (CARDIZEM CD, CARTIA XT) 300 mg 24 hr capsule [Pharmacy Med Name: dilTIAZem HCl ER Coated Beads 300 MG Oral Capsule Extended Release 24 Hour] 90 capsule 3 Sig: Take 1 capsule by mouth once daily Last seen 02/26/2023. Next visit 08/29/2023. Prescription(s) as above. Please process accordingly. Dedra Lao LPN documented in this encounter [facility] 05-16-2023 Miscellaneous Notes Patient called back and confirmed, she is still taking med. Enid Dunbar LPN Name of medication:Erythromycin Name of ordering provider: LOUISA: (date)07/11/2022 NOV: (date) 07/10/2023 Has patient been seen within the year? yes Upcoming appt scheduled: yes Spoke with patient - confirmed he/she is requesting refill. Pharmacy updated: (yes or no) Medication pended - please file if appropriate. Called and left vm message for patient to return call to the office documented in this encounter [facility] 05-08-2023 Miscellaneous Notes APPROVED for Ibsrela Auth # or CaseID:[id number] Auth period:05/08/23 -05/08/24 Patient and pharmacy notified. PA for Ibsrela renewal initiated electronically through [employer]. Awaiting response [facility]/[employer] Commercial ID# [id number] Rx BIN [id number] Rx PCN [id number] Rx Grp [facility] documented in this encounter [facility] 05-07-2023 Miscellaneous Notes LOUISA=07/11/22 Spoke with patient she does need a refill Medication pended please file Rx request if appropriate Patient and pharmacy verified LOUISA: 07/11/2022 NOV: 07/10/2023 Patient stating that for some reason, [facility] stopped mailing refill. Any questions, please contact patient: [phone] Requested Prescriptions Pending Prescriptions Disp Refills tenapanor (IBSRELA) 50 mg tablet 60 tablet 5 Sig: Take 1 tablet (50 mg) by mouth twice daily. Last 1 Encounter BP Readings: Date: BP: 02/26/2023 109/72 Hemoglobin A1C (%) Date Value 10/28/2019 6.0 Patient aware RX escripted to mail away pharmacy. No need to notify patient. Orders Pended Steph Lewis documented in this encounter [facility] 03-19-2023 Miscellaneous Notes Covering for Christiane Kraus PILY, blood pressures for the most part stable they are higher than she had been previously, heart rates still a little elevated, previous monitor revealed sinus tachycardia. Her feet are likely swollen from Cardizem, we could trial increasing her Cardizem a little bit more to 300 mg daily if she is agreeable. But may cause more swelling, not sure about if this will help her shortness of breath. Glad she is feeling more awake. Pauline Fraser APRN.PILY documented in this encounter [facility] 01-10-2023 Miscellaneous Notes Patient's request for medication is as follows: Requested Prescriptions Pending Prescriptions Disp Refills metoprolol succinate ER (TOPROL XL) 100 mg [Pharmacy Med Name: Metoprolol Succinate ER 100 MG Oral Tablet Extended Release 24 Hour] 90 tablet 3 Sig: Take 1 tablet by mouth once daily Last seen 08/04/2021. Follow up scheduled for 02/26/2023. Prescription(s) as above. Please process accordingly. Robert Clarke LPN documented in this encounter [facility] 01-10-2023 Miscellaneous Notes Patient's request for medication is as follows: Requested Prescriptions Pending Prescriptions Disp Refills metoprolol succinate ER (TOPROL XL) 50 mg 24 hr tablet [Pharmacy Med Name: Metoprolol Succinate ER 50 MG Oral Tablet Extended Release 24 Hour] 90 tablet 0 Sig: TAKE 1 TABLET BY MOUTH IN THE MORNING, TAKE 100 MG TABLET IN THE EVENING Last seen 08/04/2021. Follow up scheduled for 02/26/2023. Prescription(s) as above. Please process accordingly. Robert Clarke LPN documented in this encounter [facility] 12-14-2022 Miscellaneous Notes Patient's request for medication is as follows: Requested Prescriptions Pending Prescriptions Disp Refills metoprolol succinate ER (TOPROL XL) 50 mg 24 hr tablet [Pharmacy Med Name: Metoprolol Succinate ER 50 MG Oral Tablet Extended Release 24 Hour] 30 tablet 0 Sig: TAKE 1 TABLET BY MOUTH ONCE DAILY IN THE MORNING. TAKE THE 100MG TAB IN THE EVENING. Last seen 08/04/2021. Patient missed appointment scheduled for 07/21/2022. Patient contacted on 11/10/2022 and scheduled for appointment on 12/19/2022. [facility] cancelled appointment scheduled for 12/19/2022. Second request sent to clerical requesting they call patient with new appointment. Prescription(s) as above. Please process accordingly. Robert Clarke LPN documented in this encounter [facility] 12-07-2022 Miscellaneous Notes Patient's request for medication is as follows: Requested Prescriptions Refused Prescriptions Disp Refills metoprolol succinate ER (TOPROL XL) 50 mg 24 hr tablet [Pharmacy Med Name: Metoprolol Succinate ER 50 MG Oral Tablet Extended Release 24 Hour] 30 tablet 0 Sig: TAKE 1 TABLET BY MOUTH ONCE DAILY IN THE MORNING. TAKE THE 100MG TAB IN THE EVENING. Refused By: ROBERT CLARKE Reason for Refusal: Patient has requested refill too soon Refilled 11/10/2022. Pt needs over due appointment. Prescription(s) as above. Please process accordingly. Robert Clarke LPN documented in this encounter [facility] 11-15-2022 Miscellaneous Notes Information on last office note was faxed per JOSELIN in scanned documents Electronically signed by Ayaka Catherine [facility] at 11/15/2022 3:49 PM EST documented in this encounter [facility] 11-10-2022 Miscellaneous Notes Last seen 08/04/2021. Patient missed appointment scheduled for 07/21/2022. Please call patient with over due appointment. Robert Clarke LPN documented in this encounter [facility] 11-10-2022 Miscellaneous Notes Patient's request for medication is as follows: Requested Prescriptions Pending Prescriptions Disp Refills metoprolol succinate ER (TOPROL XL) 50 mg 24 hr tablet [Pharmacy Med Name: Metoprolol Succinate ER 50 MG Oral Tablet Extended Release 24 Hour] 30 tablet 0 Sig: TAKE 1 TABLET BY MOUTH ONCE DAILY IN THE MORNING (TAKE 100MG TABLET IN THE EVENING) Last seen 08/04/2021. Patient missed appointment scheduled for 07/21/2022. Message sent to clerical requesting they call patient with over due appointment. Prescription(s) as above. Please process accordingly. Robert Clarke LPN documented in this encounter [facility] 07-31-2022 Nurse Note Discharge instructions reviewed with patient, verbalized understanding and had no additional questions. Tolerating PO intake. PIV removed with cath intact. Pt assisted in dressing. Family present for discharge. documented in this encounter [facility] 07-31-2022 History and physical note UPDATED HISTORY AND PHYSICAL EXAMINATION SERVICE DATE: 07/31/2022 SERVICE TIME: 10:57 AM SERVICE: Gastroenterology PHYSICAL EXAM MUST BE COMPLETED ON ADMISSION The History and Physical (completed in the past 30 days) has been reviewed and the patient has been examined. The contents accurately reflect the patient's condition with the following additions or revisions since the H&P was completed. Patient denies any changes to health since last examination. Planned procedure for today is Colonoscopy Medication reconciliation list reviewed in [facility]. Past medical history, past surgical history, social history and family history reviewed and updated in [facility]. ALLERGIES Allergen Reactions Animal Dander Other: See Comments Sinus problems Dust Other: See Comments Hydrocodone Other: See Comments Sulfa (Sulfonamide * Hives BP 129/74 Pulse 116 Temp 36.7 C (98.1 F) Resp 18 Ht 152.4 cm (5') Wt 74.8 kg (165 lb) LMP 06/28/2022 (Approximate) SpO2 99% BMI 32.22 kg/m Examination indicates no changes. On examination today: Lungs: Clear to auscultation bilaterally. Heart: Tachy rate, Regular rhythm, Normal S1/S2, No significant murmurs, rubs, gallops or thrills appreciated. Abdomen: BS+ in all quadrants, abdomen is soft, non tender, and without guarding. Assessment: Screening for malignant neoplasm of the colon Plan: Colonoscopy This H&P can be found in the Electronic Medical Record dated 07/11/2022 by Dylon Rea DO. SIGNATURE: Jameson Echavarria PA-C PATIENT NAME: Rohan Hernandez DATE: July 31, 2022 TIME: 10:27 AM documented in this encounter [facility] 07-20-2022 Miscellaneous Notes Called patient. Below message given from Dr Rea. Yes 2 days of clears thanks Patient states understanding. No questions at this time. Yes 2 days of clears thanks Patient scheduled for 07/31 She is asking if you want her to do a 2 day prep because she has gastroparesis Please call patient and advise Thank you Called patient to schedule colonosopy. No answer, L/M to return call to schedule Order and prep is in Patient states she has no GI doctor down there and she is fine coming here to have you do her colonoscopy if you will. Phone call was made and a message left to find out if the patient wants to come to [facility] for her colonoscopy or have it done locally. Agree that is for a colonoscopy. Not sure she will want to come clear up her from [place] for the scope. Contact her and ask if she wants to do that locally or here thanks Received a referral on this [facility] established patient. The referral looks like they are referring for a colonoscopy not a reg. GP Established visit. Can you review the referral in scanned documents and advise. Electronically signed by Ayaka Catherine [facility] [place] at 07/19/2022 12:27 PM EDT documented in this encounter [facility] 07-19-2022 Instructions Dylon Rea, DO - 07/19/2022 4:24 PM EDT Images from the original note were not included. Bowel Preparation Instructions for: Golytely, Nulytely, Trilyte or Colyte (polyethylene glycol 3350 and electrolytes) IF YOU DO NOT FOLLOW THESE DIRECTIONS, YOUR COLONOSCOPY WILL BE CANCELLED. Brennan Instructions: Your bowel must be empty so that your doctor can clearly view your colon. Follow all of the instructions in this handout EXACTLY as they are written. Do NOT eat any solid food the ENTIRE day before your colonoscopy. Drink only clear liquids. Buy your bowel preparation at least 5 days before your colonoscopy. TRANSPORTATION on the Day of Your Exam A responsible person MUST be present with you at Check In prior to your colonoscopy and REMAIN in the endoscopy area until you are discharged. You are NOT ALLOWED to drive, take a taxi or bus, or leave the Endoscopy Center ALONE. If you do not have a responsible national flatbed truck driver (family member or friend) with you to take you home, your exam cannot be done with sedation and will be cancelled. Please bring a list of all of your current medications, including any Over-the Counter medications with you. Medications If you take insulin, diabetic medications or blood thinners such as Coumadin (warfarin), Plavix (clopidogrel), Ticlid (ticlopidine hydrochloride), Agrylin (anagrelide), Xarelto (Rivaroxaban), Pradaxa (Dabigatran), Eliquis (Apixaban), and Effient (Prasugrel). You MUST call the doctors who orders those medicines for instructions on altering the dosage before your colonoscopy. All other medications should be taken the day of the exam with a sip of water including ASPIRIN. Five (5) Days Before Your Colonoscopy Do NOT take medicines that stop diarrhea - such as Imodium, Kaopectate, or Pepto Bismol. Do NOT take fiber supplements - such as Metamucil, Citrucel, or Perdiem. Do NOT take products that contain iron - such as multi-vitamins (the label lists what is in the products). Do NOT take Vitamin E. Buy the prescription bowel preparation solution at your local pharmacy or drugstore pharmacy. 1 09/2019 Bowel Preparation Instructions for: Golytely, Nulytely, Trilyte or Colyte (polyethylene glycol 3350 and electrolytes) Three (3) Days Before Your Colonoscopy Do NOT eat high-fiber foods - such as popcorn, beans, seeds (flax, sunflower, quinoa), multigrain bread, nuts, salad/vegetables, or fresh and dried fruit. One (1) Day Before Your Colonoscopy Only drink clear liquids the ENTIRE DAY before your colonoscopy. Do NOT eat any solid foods. Drink at least 8 ounces of clear liquids every hour after waking up. The clear liquids you can drink include: Clear Liquid (NO RED LIQUIDS) DO NOT DRINK Gatorade, Pedialyte or Powerade Clear broth or bouillon Coffee or tea (no milk or non-dairy creamer) Carbonated and non-carbonated soft drinks Abelardo-Aid or other fruit flavored drinks Strained fruit juices (no pulp) Jell-O, popsicles, hard candy Water Alcohol Milk or non-dairy creamers Noodles or vegetables in soup Juice with pulp Liquid you cannot see through Do not use tobacco/vaping products The bowel preparation solution will be consumed in two parts. Mix the solution the evening before your colonoscopy and refrigerate before drinking. You may add the flavor pack that came with the bowel preparation. Do NOT add ice, sugar or any other flavorings to the solution. Part 1 At 6:00 PM - Evening before your colonoscopy Drink an 8-oz glass of bowel preparation every 10 minutes for a total of 8 glasses. You may continue to drink clear liquids until midnight. Part 2 On the day of your colonoscopy you may drink clear liquids up to (three) 3 hours before your procedure. 4 1/2 hours before your colonoscopy Drink an 8-oz glass of bowel preparation every 10 minutes for a total of 8 glasses. Fifteen (15) minutes later, drink an 8-oz glass of clear liquids every 15 minutes for a total of 2 glasses. You may continue to drink clear liquids up to (three) 3 hours before your exam. 2 09/2019 documented in this encounter [facility] 07-12-2022 Miscellaneous Notes Email received from Jaret Nash, Thank you for advising of and attaching the Prior Authorization denial letter and informing that your office will not be pursuing the appeal. We will be reaching out to Rohan to obtain the consent needed for us to assess her eligibility for our Patient Assistance Program. Once we have the consent on file and have completed our assessment, we will send a status update to your office advising of the outcome. Please do not hesitate to reach out with any questions. Thank you, Susan Boyer Patient Services Form Raiser Charity Assist Received DENIAL for Ibsrela. The requested medication and or diagnosis are not a covered benefit and excluded from coverage in accordance with the terms and conditions of your plan benefit. Denial letter sent to Ivette via email to place patient into Patient Assistance Program. Called patient. Left message medication was denied and Ivette will be reaching out to you concerning the patient assistance program. [employer] ID:[id number] BIN:[id number] PCN:[id number] RxGrp: [facility] initiated electronically. Awaiting response. Patient has tried and failed Zelnorm-taken off market, Erythromycin-ineffective, Dulcolax-ineffective, Motegrity-ineffective, Metamucil-ineffective, Miralax-ineffective, Colace-ineffective, Amitiza-ineffective, Linzess-ineffective. documented in this encounter [facility] 07-11-2022 History of Presen t illness Narrative FOLLOW UP VISIT CHIEF COMPLAINT Patient presents with: Establish Care: GP f/u Ms. Hernandez is here today for follow-up of: Gastroparesis constipation. HPI I saw this 51y/o in f/u for her gi issues. Her symptoms are relatively stable. She had stopped the Zelnorm due to it being off the market. She is now taking EES and 3-4 bisacodyl a day to get bowels. Current Outpatient Medications Medication Sig Dispense Refill mycophenolate mofetil (CELLCEPT) 250 mg capsule Take by mouth twice daily. erenumab-aooe (AIMOVIG AUTOINJECTOR) 140 mg/mL auto-injector Inject 140 mg subcutaneously once every month. Do not shake. Erythromycin 250 mg cpDR Take 1 capsule by mouth before meals and at bedtime. 120 capsule 6 metoprolol succinate ER (TOPROL XL) 100 mg Take 1 tablet by mouth once daily 90 tablet 3 Erythromycin 250 mg cpDR TAKE 1 CAPSULE BY MOUTH BEFORE MEALS AND AT BEDTIME 120 capsule 0 metoprolol succinate ER (TOPROL XL) 50 mg 24 hr tablet TAKE 1 TABLET BY MOUTH ONCE DAILY IN THE MORNING (TAKE 100 MG TAB IN THE EVENING) 90 tablet 3 folic acid 400 mcg tablet Take 200 mcg by mouth once daily. budesonide-formoterol (SYMBICORT) 160-4.5 mcg/actuation inhaler Inhale 2 Puffs as instructed once daily. amLODIPine (NORVASC) 5 mg tablet Take by mouth once daily. magnesium oxide (MAG-OX) 400 mg (241.3 mg magnesium) tablet Take two tablets by mouth once daily. metFORMIN (GLUCOPHAGE) 500 mg tablet 500 mg once daily. rosuvastatin (CRESTOR) 10 mg tablet Take 10 mg by mouth once daily. tiZANidine (ZANAFLEX) 2 mg tablet Take 4 mg by mouth every 6 hours as needed. albuterol HFA (PROVENTIL HFA, VENTOLIN HFA) 90 mcg/actuation inhaler Inhale 2 Puffs as instructed every 4 hours as needed. loratadine (CLARITIN) 10 mg tablet Take 10 mg by mouth once daily. atomoxetine (STRATTERA) 40 mg capsule Take 40 mg by mouth twice daily. L.acid/B.bifidum/B.animal/FOS (PROBIOTIC COMPLEX ORAL) Take by mouth. potassium (POTASSIMIN ORAL) Take 30 mEq by mouth once daily. cholecalciferol (VITAMIN D3) 5,000 unit tab Take 2,000 Units by mouth once daily. belimumab (BENLYSTA) 200 mg/mL AutoInjector Inject 200 mg subcutaneously one time a week. guaifenesin/pseudoephedrne HCl (MUCINEX D ORAL) once daily. rizatriptan (MAXALT) 5 mg tablet as needed. DEXLANSOPRAZOLE (DEXILANT ORAL) Take 60 mg by mouth once daily. DULOXETINE HCL (CYMBALTA ORAL) Take by mouth. 60 mg in the morning ZELNORM 6 mg tablet TAKE 1 TABLET BY MOUTH TWICE DAILY BEFORE MEAL(S) 60 tablet 0 prucalopride 2 mg tablet (MOTEGRITY) Take 1 tablet (2 mg) by mouth once daily. 30 tablet 6 nortriptyline (PAMELOR) 50 mg capsule Take 50 mg by mouth daily at bedtime. ibuprofen-famotidine (DUEXIS) 800-26.6 mg tab Take by mouth as needed. Three times a day as needed. No current facility-administered medications for this visit. ALLERGIES Allergen Reactions Animal Dander Other: See Comments Sinus problems Dust Other: See Comments Hydrocodone Other: See Comments Sulfa (Sulfonamide * Hives Social History Tobacco Use Smoking status: Former Packs/day: 0.30 Years: 3.00 Pack years: 0.90 Types: Cigarettes Quit date: 10/07/1995 Years since quittin.7 Smokeless tobacco: Never Vaping Use Vaping Use: Never used Substance Use Topics Alcohol use: Yes Drug use: Never Medical History: No changes since last visit. REVIEW OF SYSTEMS: GENERAL: weight stable, no fevers. CARDIOVASCULAR: No chest pain, no edema RESPIRATORY: No dyspnea : neg CARPENTERS SUPERVISOR: neg The remainder of the review of systems are negative. Reviewed with patient during visit today. PHYSICAL EXAMINATION: BP 120/78 Pulse 94 Ht 5' 1 (1.55m) Wt 166 lb 6.4 oz (75.5kg) LMP 12/23/2019 BMI 31.46 kg/(m^2). GENERAL APPEARANCE: Well developed and well nourished. SKIN: Skin color, texture, turgor normal. No rashes or lesions. EYES: Conjunctiva normal without icterus. OROPHARYNX: lips, mucosa, and tongue normal, teeth and gums normal NECK: Supple, full range of motion, no lymphadenopathy, normal thyroid, no carotid bruits and no JVD LUNGS: Normal breath sounds, Clear to auscultation, No wheezes, No crackles. HEART:Normal PMI, Regular rate and rhythm, Normal heart sounds, S1 and S2 and No murmurs. NEURO: Alert and oriented in no acute distress. ABDOMEN: Normal bowel sounds, abdomen flat with no distention, Soft, non-tender, no hepatomegaly. no palpable masses, no abdominal bruits, no rebound and no rigidity. EXTREMITIES:Extremities normal, No deformities, No skin discoloration, No edema . Assessment Encounter Diagnosis ICD-10-CM 1. Irritable bowel syndrome with constipation K58.1 tenapanor (IBSRELA) 50 mg tablet 2. Gastroparesis K31.84 Erythromycin 250 mg cpDR Dylon Rea DO 07/11/2022 documented in this encounter [facility] 06-15-2022 Miscellaneous Notes LOUISA = 07/2021. Called patient - left message on identified voice mail - request call back to confirm she is requesting for the refill. She will also need to schedule a follow appt for the refill. Await call back. documented in this encounter [facility] 05-17-2022 Miscellaneous Notes Spoke with pt about 2 week event recorder results. And recommendations. Verbalizes understanding, reports that at this time she does not want consult to EP. Pt will call [facility] if she later decides she would like that referral. Dedra Lao LPN 2-week event recorder did not show any significant arrhythmia. Predominantly very mild sinus tachycardia with rates in the range of 100- 110 some PVCs but really no significant arrhythmia or anything of concern. She is already on good dose of beta-berto. No current recommendations. If she wants consult to the EP service I am happy to arrange this if she wishes another opinion on management of her sinus tach. Nicolas Thorne MD documented in this encounter [facility] 05-12-2022 Miscellaneous Notes LOUISA 08/01/21 Pharmacy and Rx request verified. Please file if appropriate. Thank you Enid Dunbar LPN documented in this encounter [facility] 05-03-2022 Miscellaneous Notes Misc reports are in scanned documents on this established patient for your review. Electronically signed by Ayaka Catherine [facility] at 05/03/2022 9:18 AM EDT documented in this encounter [facility] 05-01-2022 Note HNO ID: [id number] Author: Claudine Macias RN Service: ? Author Type: Registered Nurse Type: Patient Education Filed: 05/01/2022 3:35 PM Note Text: Patient educated on 14 day event monitor, and verbalizes understanding. [facility] 05-01-2022 Miscellaneous Notes Patient educated on 14 day event monitor, and verbalizes understanding. documented in this encounter [facility] 04-21-2022 Miscellaneous Notes Spoke with pt about recommendations in regards to daily palpitations and high HR's. Verbalizes understanding. Reports she will call office back on Sunday with her decision on how she would like to proceed. Dedra Lao LPN I left a message for Ms Hernandez to call the office to go over Dr Thorne's response and recommendations. Rosa Santiago LPN Patient's voicemail machine said she cannot except messages at this time and hung up. Rosa Santiago LPN She had a normal nuclear stress test 2019. If she starts having chest pain with activity let us know and I might consider repeating a stress test or we could even do a heart cath but I suspect that this is probably not cardiac chest pain. Regarding heart rate, she had a 3 or 4-day heart monitor about 2 years ago which only showed sinus tachycardia but no major arrhythmia. She is on a pretty good dose of metoprolol already 100 mg. It is reasonable to follow this expectantly. However we certainly could do a 2-week event recorder just to make sure there is no other arrhythmia and to assess her overall heart rate response. A third option which could be done is to change her amlodipine to something like Cardizem which also will bring her heart rate down a little further. If we did this I would use a very small dose such as 30 mg twice daily. Let me know how she would like to proceed. Thanks Nicolas Thorne MD Ms Hernandez called. She had seen Dr Mc her PCP a couple of days ago and mentioned she has been noting daily palpitations lately and her heart rates are running consistently 100 and when she is noting palpitations as high as 120's to 130's. Her B/P systolic is in the 120's and diastolic 60's to 80's. She also wanted to mention that she was having midsternal chest pain in January of 2022 and gallbladder was checked and it was okay. She has not had anymore chest pain since then. She saw Dr Thorne on 08-04-2021 and was to return in one year. Thank you, Rosa Santiago LPN documented in this encounter [facility] 04-11-2022 Miscellaneous Notes [facility] 08-01-21 Pharmacy and Rx request verified. Please file if appropriate. Thank you Enid Dunbar LPN documented in this encounter [facility] 02-16-2022 Miscellaneous Notes LOUISA 08/01/2021 Please review and sign documented in this encounter [facility] 01-24-2022 Miscellaneous Notes Called and left vm message to the patient to make aware that prescription was sent to the pharmacy. Addended by: DYLON REA on: 01/24/2022 10:00 AM Modules accepted: Orders done Call received from Rashid walton at [facility] in [place]. Previous prescription was sent for Erythromycin tabs and now capsules are available and patient would like capsules. Pharmacist is asking for a new order for capsules or ok to change to capsules. Rashid [place] documented in this encounter [facility] Diagnosis Irritable bowel syndrome with constipation Irritable bowel syndrome [facility] Diagnosis Tachycardia Tachycardia, unspecified [facility] Diagnosis Irritable bowel syndrome with constipation- Primary Irritable bowel syndrome Gastroparesis [facility] Diagnosis Screening for malignant neoplasm of colon- Primary [facility] Diagnosis Screening for malignant neoplasm of colon [facility] Diagnosis Irritable bowel syndrome with constipation Irritable bowel syndrome [facility] Diagnosis Gastroparesis [facility] G[facility]aresis [facility] Procedure (Routine) - Pending Review Specialty Diagnoses / Procedures Referred By Neobarbara t Referred To Contact [facility] Diagnoses Screening for malignant neoplasm of colon Procedures COLONOSCOPY SCREENING COLONOSCOPY FLX DX W/COLLJ SPEC WHEN Dylon Hutchinson DO [address] [place] [id number] [facility] Disease [address] [address] Referral ID Status Reason Start Date Expiration Date Visits Requested Visits Authorized [id number] Pending Review Auto-Generat ed Referral 07/19/2023 1 1 [facility] for referral (narrative)* Outpatient Procedure (Routine) - Closed Specialty Diagnoses / Procedures Referred By Jeannine t Referred To [facility] Diagnoses Screening for malignant neoplasm of colon Procedures COLONOSCOPY SCREENING COLONOSCOPY FLX DX W/COLLJ SPEC [facility] [address] [place] [id number] [address] [address] Referral ID Status Reason Start Date Expiration Date V isits Requested Visits Authorized [id number] Closed Auto-Generate d Referral 07/19/2022 07/19/2023 1 1 [facility] for visit Narrative* Outpatient Procedure (Routine) - Closed Specialty Diagnoses / Procedures Referred By Contac t Referred To Contact [facility] Diagnoses Screening for malignant neoplasm of colon Procedures COLONOSCOPY SCREENING COLONOSCOPY FLX DX W/COLLJ SPEC WHEN Dylon Hutchinson DO [address] [place] [id number] [address] [address] Referral ID Status Reason Start Date Expiration Date V isits Requested Visits Authorized [id number] Closed Auto-Generate d Referral 07/19/2022 07/19/2023 [address] [facility] History of Present Illness * Kain Mendes, Nicolas Cannon, DO - 07/21/2019 4:30 PM EDT History of Present Illness Benlysta started 05/2019. Benlysta is helping and it is not bothering her. Presence of Pain: complains of pain/discomfort Select Pain Scale: DVPRS (Defense and Veterans Pain Rating Scale) (Adult- Cognitively Intact) DVPRS: Rest: 3- mild pain DVPRS: Activity: 3- mild pain Select Pain Scale: DVPRS (Defense and Veterans Pain Rating Scale) (Adult- Cognitively Intact) . Due to complex issues I spent at least 31 minutes in face to face time with patient, more than 50% of that time was spent on counseling and coordination of care. Energy level is fair. Leg swelling is yes but today is not bad. IBS is having a lot more bloating and constipation. Joint pain is yes. Back pain is yes. Muscle pain is yes. Neck Pain form bulging disc. Patient is in PT for her neck. Migrainesis yes. Lyrica has helped. But had to stay at 50 mg bid as had side effects at tid. Patient has hada serious adverse event to medication which could have increased morbidity or mortality. Tremors are not bad. No rash but got a little bit of sun 2 months ago and V of neck is still pink. Patient is here todayfor their 4 month F/u. Patient statest that she has been okay since her last appointment. Patient states that there is nothing new. Patient states that she jaramillo a protruding disc in her neck. Benlysta is lasting the whole week. Review of Systems Constitutional: Negative. HENT: Negative. Eyes: Negative. Respiratory: Negative. Cardiovascular: Positive for leg swelling. Gastrointestinal: Positive for abdominal distention and constipation. IBS Gastroparesis Endocrine: Negative. Genitourinary: Negative. Musculoskeletal: Positive for arthralgias, back pain, myalgias, neck pain and neck stiffness. Skin: Photosensitivity Allergic/Immunologic: Negative. Neurological: Positive for tremors and headaches. Migraines Hematological: Negative. Psychiatric/Behavioral: Negative. Vitals: Blood pressure 124/72, pulse 96, temperature 96.7 F (35.9 C), temperature source Temporal, weight 74.1 kg (163 lb 6.4 oz), SpO2 98 %. Physical Exam Constitutional: She is oriented to person, place, and time. She appears well- developed and well-nourished. HENT: Head: Normocephalic and atraumatic. Right Ear: External ear normal. Left Ear: External ear normal. Nose: Nose normal. Mouth/Throat: Oropharynx is clear and moist. Eyes: Pupils are equal, round, and reactive to light. Conjunctivae and EOM are normal. Glasses Neck: Neck supple. Cardiovascular: Normal rate, regular rhythm and normal heart sounds. Pulses: Radial pulses are 2+ on the right side, and 2+ on the left side. Pulmonary/Chest: Effort normal and breath sounds normal. Abdominal: Soft. Bowel sounds are normal. Obese Musculoskeletal: Right shoulder: She exhibits decreased range of motion. Left shoulder: She exhibits decreased range of motion. Right elbow: Normal. Left elbow: Normal. Right wrist: She exhibits decreased range of motion and crepitus. Left wrist: She exhibits decreased range of motion and crepitus. Right knee: She exhibits decreased range of motion. Left knee: She exhibits decreased range of motion. Right ankle: Normal. Left ankle: Normal. Right upper arm: Normal. Left upper arm: Normal. Right forearm: Normal. Left forearm: Normal. Right hand: She exhibits decreased range of motion and tenderness. Left hand: She exhibits decreased range of motion and tenderness. Hands: Right upper leg: Normal. Left upper leg: Normal. Right lower leg: Normal. Left lower leg: Normal. Legs: Neurological: She is alert and oriented to person, place, and time. She has normal strength. She displays a negative Romberg sign. Skin: Skin is warm and dry. Psychiatric: She has a normal mood and affect. Her behavior is normal. Judgment and thought contentnormal. Nursing note and vitals reviewed. Neurologic Exam Mental Status Oriented to person, place, and time. Cranial Nerves CN III, IV, Pupils are equal, round, and reactive to light. Extraocular motions are normal. Motor Exam Strength Strength 5/5 throughout. Assessment and Plan Encounter Diagnoses Name Primary? Systemic lupus erythematosus, unspecified SLE type, unspecified organ involvement status Yes Positive double stranded DNA antibody test Positive SAVANNA (antinuclear antibody) penitentiary (current) use of non-steroidal anti-inflammatories (nsaid) History of systemic lupus erythematosus (SLE) History of positive double stranded DNA antibody test History of fibromyalgia Hepatitis C antibody positive in blood Hepatitis B antibody positive Hepatitis A antibody positive Family history of diabetes mellitus Anti-AIR POLLUTION SPECIALIST antibodies present Gastroparesis Hypokalemia Fibromyalgia Primary osteoarthritis, right hand Primary osteoarthritis, left hand Other intervertebral disc degeneration, lumbar region Other cervical disc degeneration, unspecified cervical region Osteoarthritis of lumbar spine, 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 of both hands, unspecified osteoarthritis type HNP (herniated nucleus pulposus), cervical Lumbar degenerative disc disease DDD (degenerative disc disease), cervical 1. Time was spent with the patient today in education in re: to all their medical conditions. A complete H&P&ROS was obtained and is either in this note or in the EHR. Please do not hesitate to contact me with any questions or concerns re: this patient. Past History Past medical, surgical, family, and social histories have been reviewed and updated with the patient today and are located elsewhere in the medical record. 2. Thank you for allowing me to participate in the care of your patient. With your permission I would like to F/U with your patient. 3. Negative ANCA, HLA-B27, Histone, Celiac, CCP, RF 4. Positive Hep A Ab, total 5. Vit D under care of PCP 6. Stop OTC IBP 7. Positive Hep C antibody 8. Monitor CBC/LFT/Renal func every 6-12 months as long as patient is on daily NSAID 9. Patient is also taking Cranberry 10. Patient has tried Plaquenil and Methotrexate and they did not help. 11. UA shows no blood or protein but 250 mg/dl protein. Patient is going to F/U with PCP 12. Hold Benlysta month before and month after any surgery or live vaccine. Hold Benlysta anytime have an infection can restart once off of ATB and/or antiviral and free of infection. Hold Benlysta if have open wound and can restart once wound had healed. 13. Positive Hep B surface antibody - Vaccine 14. C4 was normal at 19 and still is at 22 15. C3 was normal at 117 and still is at 130 16. Patient given educational material on fibromyalgia syndrome in the form of a pamphlet from the arthritis foundation. Patient told that generalized stretching and aerobic exercise would be the cornerstone of treatment. Patient would benefit from psych eval and treatment of any underlying depression and/or anxiety disorder. Patient would benefit from eval and F/U treatment by PMR and/or ChronicPain Management 17. RX given for PT/OT - patient declines 18. NAYAN level was normal at 33 19. Positive SAVANNA (times 3) 20. Positive dsDNA at 55 and then agian at 64 and still is at 69 21. Positive AIR POLLUTION SPECIALIST at 2.1 and then again at 2.1 and still is at 2.0 22. Glucose was elevated at 126 and is now normal at 99 23. UA 24. Patient told must F/U with PCP about low potassium 25. Potassium is low at 3.1 26. Rx given to increase Potassium to 2 pills a day 27. ESR was normal at 1 and still is at 7 29. CRP was negative at < 2.9 and is now elevated at 11.2 30 Hep C viral load by PCR was negative 31. Greater that 100 mg Lyrica a day causes side effects 32. Patient educated on sun protection and sun avoidance. 33. Patient is taking Propanolol 34. Repeat Potassium on or about 07/24/19 with copy to PCP 35. Call if need Rx's 36. Lab on or about 11/04/2019 37. F/u with me in 4 months documented in this encounter* Nicolas Finnegan Jr., DO - 12/01/2019 4:30 PM EST History of Present Illness Kalani started 05/2019. Kalani has been helping and it is not bothering her. Presence of Pain: complains of pain/discomfort Pain Location: foot, left, foot, right, hand, left, hand, right, hip, left, hip, right, neck Select Pain Scale: DVPRS (Defense and Veterans Pain Rating Scale) (Adult- Cognitively Intact) DVPRS: Rest: 3- mild pain DVPRS: Activity: 7- severe pain Select Pain Scale: DVPRS (Defense and Veterans Pain Rating Scale) (Adult- Cognitively Intact) Pain Management Interventions: other (see comments)(has been receiving steroid injections that havebeen helping. She is going back for more in December). Due to complex issues I spent at least 38 minutes in face to face time with patient, more than 50% of that time was spent on counseling and coordination of care. Patient is being evaluated for an unstable chronic illness that increase morbidity and mortality. Patient is here for a 4mo follow up. Patient states that she is feeling about the same since her last visit but that she has been very tired. Leg swelling is yes. IBS is doing not horrible. Gastroparesis is unchanged. Bloating continues. Constipation is more than diarrhea but she goes back and forth. Joint pain is yeah. Back pain is definitely. Muscle pain is yes. Neck pain is yeah - probably the worse right now. Migraines are a little better. Tremors yes but they are controlled pretty well right now. Patient is being careful in the sun. benlysta is lasting the whole week. Patient is on Clindamycin for tooth infection. Patient has been off of meds for Bronchitis since last seen. Review of Systems Constitutional: Positive for fatigue. HENT: Negative. Eyes: Negative. Respiratory: Negative. Cardiovascular: Positive for leg swelling. Gastrointestinal: Positive for abdominal distention, constipation and diarrhea. IBS Gastroparesis Endocrine: Negative. Genitourinary: Negative. Musculoskeletal: Positive for arthralgias, back pain, myalgias, neck pain and neck stiffness. Skin: Photosensitivity Allergic/Immunologic: Negative. Neurological: Positive for tremors and headaches. Migraines Hematological: Negative. Psychiatric/Behavioral: Negative. Vitals: Blood pressure 124/68, pulse 97, temperature 98.4 F (36.9 C), temperature source Temporal, resp. rate 20, height 1.524 m (5'), weight 73.9 kg (163 lb), SpO2 97 %. Physical Exam Vitals signs and nursing note reviewed. Constitutional: Appearance: Normal appearance. She is well-developed. She is obese. HENT: Head: Normocephalic and atraumatic. Right Ear: External ear normal. Left Ear: External ear normal. Nose: Nose normal. Mouth/Throat: Mouth: Mucous membranes are moist. Pharynx: Oropharynx is clear. Eyes: Extraocular Movements: Extraocular movements intact and EOM normal. Conjunctiva/sclera: Conjunctivae normal. Pupils: Pupils are equal, round, and reactive to light. Comments: Glasses Neck: Musculoskeletal: Neck supple. Cardiovascular: Rate and Rhythm: Normal rate and regular rhythm. Pulses: Radial pulses are 2+ on the right side and 2+ on the left side. Heart sounds: Normal heart sounds. Pulmonary: Effort: Pulmonary effort is normal. Breath sounds: Normal breath sounds. Abdominal: General: Bowel sounds are normal. Palpations: Abdomen is soft. Comments: Obese Musculoskeletal: Right shoulder: She exhibits decreased range of motion and tenderness. Left shoulder: She exhibits decreased range of motion and tenderness. Right elbow: Normal. Left elbow: Normal. Right wrist: She exhibits decreased range of motion and crepitus. Left wrist: She exhibits decreased range of motion and crepitus. Right knee: She exhibits decreased range of motion. Left knee: She exhibits decreased range of motion. Right ankle: Normal. Left ankle: Normal. Right upper arm: Normal. Left upper arm: Normal. Right forearm: Normal. Left forearm: Normal. Right hand: She exhibits decreased range of motion. Left hand: She exhibits decreased range of motion. Hands: Right upper leg: Normal. Left upper leg: Normal. Right lower leg: Normal. Left lower leg: Normal. Legs: Skin: General: Skin is warm and dry. Neurological: Mental Status: She is alert and oriented to person, place, and time. Cranial Nerves: Cranial nerves are intact. Sensory: Sensation is intact. Motor: Weakness present. Coordination: Coordination is intact. Gait: Gait is intact. Deep Tendon Reflexes: Strength normal. 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 Behavior: Behavior normal. Thought Content: Thought content normal. Judgment: Judgment normal. Neurologic Exam Mental Status Oriented to person, place, and time. Cranial Nerves CN III, IV, Pupils are equal, round, and reactive to light. Extraocular motions are normal. Motor Exam Strength Strength 5/5 throughout. Gait, Coordination, and Reflexes Gait Gait: normal Assessment and Plan Encounter Diagnoses Name Primary? 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 (SLE) [facility] (current) use of antibiotics [employer] continuous churn (current) use of non-steroidal anti-inflammatories (nsaid) Positive SAVANNA (antinuclear antibody) Positive double stranded DNA antibody test Gastroparesis Vitamin D deficiency Fibromyalgia DDD (degenerative disc disease), cervical HNP (herniated nucleus pulposus), cervical Lumbar degenerative disc disease Osteoarthritis of both hands, unspecified osteoarthritis type Osteoarthritis of lumbar spine, unspecified spinal osteoarthritis complication status Other cervical disc degeneration, unspecified cervical region Other intervertebral disc degeneration, lumbar region Primary osteoarthritis, left hand Primary osteoarthritis, right hand Leukocytosis, unspecified type 1. Time was spent with the patient today in education in re: to all their medical conditions. A complete H&P&ROS was obtained and is either in this note or in the EHR. Please do not hesitate to contact me with any questions or concerns re: this patient. Past History Past medical, surgical, family, and social histories have been reviewed and updated with the patient today and are located elsewhere in the medical record. 2. Thank you for allowing me to participate in the care of your patient. With your permission I would like to F/U with your patient. 3. Negative ANCA, HLA-B27, Histone, Celiac, CCP, RF 4. Positive Hep A Ab, total 5. Vit D under care of PCP 6. Stop OTC IBP 7. Positive Hep C antibody 8. Monitor CBC/LFT/Renal func every 6-12 months as long as patient is on daily NSAID 9. Patient is on Nortriptyline 10. Patient has tried Plaquenil and Methotrexate and they did not help. 11. UA showed no blood or protein but 250 mg/dl protein and now shows nor blood or protein 12. Hold Benlysta month before and month after any surgery or live vaccine. Hold Benlysta anytime have an infection can restart once off of ATB and/or antiviral and free of infection. Hold Benlysta if have open wound and can restart once wound had healed. 13. Positive Hep B surface antibody - Vaccine 14. C4 was normal at 22 and still is at 15. C3 was normal at 130 and still is at 142 16. Patient given educational material on fibromyalgia syndrome in the form of a pamphlet from the arthritis foundation. Patient told that generalized stretching and aerobic exercise would be the cornerstone of treatment. Patient would benefit from psych eval and treatment of any underlying depression and/or anxiety disorder. Patient would benefit from eval and F/U treatment by PMR and/or ChronicPain Management 17. RX given for PT/OT - patient declines 18. NAYAN level was normal at 33 19. Positive SAVANNA (times 3) 20. Positive dsDNA at 55 and then agian at 64 and then again at 69 21. Positive AIR POLLUTION SPECIALIST at 2.1 and then again at 2.1 and then again at 2.0 22. WBC is elevated at 14.1 - infected tooth 23. Call if need Rx's 24. Patient told must F/U with PCP about low potassium 25. Potassium was low at 3.1 and is now normal at 3.8 26. ESR was normal at 7 and still is at 2 27. CRP was elevated at 11.2 and is now negative at < 0.1 28 Hep C viral load by PCR was negative 29. Greater that 100 mg Lyrica a day causes side effects 30. Patient educated on sun protection and sun avoidance. 31. Lab on or about 05/17/2020 32. F/U with me in 6 months documented in this encounter* Nicolas Finnegan Jr., DO - 12/01/2019 4:30 PM EST History of Present Illness Kalani started 05/2019. Kalani has been helping and it is not bothering her. Presence of Pain: complains of pain/discomfort Pain Location: foot, left, foot, right, hand, left, hand, right, hip, left, hip, right, neck Select Pain Scale: DVPRS (Defense and Veterans Pain Rating Scale) (Adult- Cognitively Intact) DVPRS: Rest: 3- mild pain DVPRS: Activity: 7- severe pain Select Pain Scale: DVPRS (Defense and Veterans Pain Rating Scale) (Adult- Cognitively Intact) Pain Management Interventions: other (see comments)(has been receiving steroid injections that havebeen helping. She is going back for more in December). Due to complex issues I spent at least 38 minutes in face to face time with patient, more than 50% of that time was spent on counseling and coordination of care. Patient is being evaluated for an unstable chronic illness that increase morbidity and mortality. Patient is here for a 4mo follow up. Patient states that she is feeling about the same since her last visit but that she has been very tired. Leg swelling is yes. IBS is doing not horrible. Gastroparesis is unchanged. Bloating continues. Constipation is more than diarrhea but she goes back and forth. Joint pain is yeah. Back pain is definitely. Muscle pain is yes. Neck pain is yeah - probably the worse right now. Migraines are a little better. Tremors yes but they are controlled pretty well right now. Patient is being careful in the sun. benlysta is lasting the whole week. Patient is on Clindamycin for tooth infection. Patient has been off of meds for Bronchitis since last seen. Review of Systems Constitutional: Positive for fatigue. HENT: Negative. Eyes: Negative. Respiratory: Negative. Cardiovascular: Positive for leg swelling. Gastrointestinal: Positive for abdominal distention, constipation and diarrhea. IBS Gastroparesis Endocrine: Negative. Genitourinary: Negative. Musculoskeletal: Positive for arthralgias, back pain, myalgias, neck pain and neck stiffness. Skin: Photosensitivity Allergic/Immunologic: Negative. Neurological: Positive for tremors and headaches. Migraines Hematological: Negative. Psychiatric/Behavioral: Negative. Vitals: Blood pressure 124/68, pulse 97, temperature 98.4 F (36.9 C), temperature source Temporal, resp. rate 20, height 1.524 m (5'), weight 73.9 kg (163 lb), SpO2 97 %. Physical Exam Vitals signs and nursing note reviewed. Constitutional: Appearance: Normal appearance. She is well-developed. She is obese. HENT: Head: Normocephalic and atraumatic. Right Ear: External ear normal. Left Ear: External ear normal. Nose: Nose normal. Mouth/Throat: Mouth: Mucous membranes are moist. Pharynx: Oropharynx is clear. Eyes: Extraocular Movements: Extraocular movements intact and EOM normal. Conjunctiva/sclera: Conjunctivae normal. Pupils: Pupils are equal, round, and reactive to light. Comments: Glasses Neck: Musculoskeletal: Neck supple. Cardiovascular: Rate and Rhythm: Normal rate and regular rhythm. Pulses: Radial pulses are 2+ on the right side and 2+ on the left side. Heart sounds: Normal heart sounds. Pulmonary: Effort: Pulmonary effort is normal. Breath sounds: Normal breath sounds. Abdominal: General: Bowel sounds are normal. Palpations: Abdomen is soft. Comments: Obese Musculoskeletal: Right shoulder: She exhibits decreased range of motion and tenderness. Left shoulder: She exhibits decreased range of motion and tenderness. Right elbow: Normal. Left elbow: Normal. Right wrist: She exhibits decreased range of motion and crepitus. Left wrist: She exhibits decreased range of motion and crepitus. Right knee: She exhibits decreased range of motion. Left knee: She exhibits decreased range of motion. Right ankle: Normal. Left ankle: Normal. Right upper arm: Normal. Left upper arm: Normal. Right forearm: Normal. Left forearm: Normal. Right hand: She exhibits decreased range of motion. Left hand: She exhibits decreased range of motion. Hands: Right upper leg: Normal. Left upper leg: Normal. Right lower leg: Normal. Left lower leg: Normal. Legs: Skin: General: Skin is warm and dry. Neurological: Mental Status: She is alert and oriented to person, place, and time. Cranial Nerves: Cranial nerves are intact. Sensory: Sensation is intact. Motor: Weakness present. Coordination: Coordination is intact. Gait: Gait is intact. Deep Tendon Reflexes: Strength normal. 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 Behavior: Behavior normal. Thought Content: Thought content normal. Judgment: Judgment normal. Neurologic Exam Mental Status Oriented to person, place, and time. Cranial Nerves CN III, IV, Pupils are equal, round, and reactive to light. Extraocular motions are normal. Motor Exam Strength Strength 5/5 throughout. Gait, Coordination, and Reflexes Gait Gait: normal Assessment and Plan Encounter Diagnoses Name Primary? 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 (SLE) [facility]it[facility] (current) use of antibiotics [facility] (current) use of non-steroidal anti-inflammatories (nsaid) Positive SAVANNA (antinuclear antibody) Positive double stranded DNA antibody test Gastroparesis Vitamin D deficiency Fibromyalgia DDD (degenerative disc disease), cervical HNP (herniated nucleus pulposus), cervical Lumbar degenerative disc disease Osteoarthritis of both hands, unspecified osteoarthritis type Osteoarthritis of lumbar spine, unspecified spinal osteoarthritis complication status Other cervical disc degeneration, unspecified cervical region Other intervertebral disc degeneration, lumbar region Primary osteoarthritis, left hand Primary osteoarthritis, right hand Leukocytosis, unspecified type 1. Time was spent with the patient today in education in re: to all their medical conditions. A complete H&P&ROS was obtained and is either in this note or in the EHR. Please do not hesitate to contact me with any questions or concerns re: this patient. Past History Past medical, surgical, family, and social histories have been reviewed and updated with the patient today and are located elsewhere in the medical record. 2. Thank you for allowing me to participate in the care of your patient. With your permission I would like to F/U with your patient. 3. Negative ANCA, HLA-B27, Histone, Celiac, CCP, RF 4. Positive Hep A Ab, total 5. Vit D under care of PCP 6. Stop OTC IBP 7. Positive Hep C antibody 8. Monitor CBC/LFT/Renal func every 6-12 months as long as patient is on daily NSAID 9. Patient is on Nortriptyline 10. Patient has tried Plaquenil and Methotrexate and they did not help. 11. UA showed no blood or protein but 250 mg/dl protein and now shows nor blood or protein 12. Hold Benlysta month before and month after any surgery or live vaccine. Hold Benlysta anytime have an infection can restart once off of ATB and/or antiviral and free of infection. Hold Benlysta if have open wound and can restart once wound had healed. 13. Positive Hep B surface antibody - Vaccine 14. C4 was normal at 22 and still is at 15. C3 was normal at 130 and still is at 142 16. Patient given educational material on fibromyalgia syndrome in the form of a pamphlet from the arthritis foundation. Patient told that generalized stretching and aerobic exercise would be the cornerstone of treatment. Patient would benefit from psych eval and treatment of any underlying depression and/or anxiety disorder. Patient would benefit from eval and F/U treatment by PMR and/or ChronicPain Management 17. RX given for PT/OT - patient declines 18. NAYAN level was normal at 33 19. Positive SAVANNA (times 3) 20. Positive dsDNA at 55 and then agian at 64 and then again at 69 21. Positive AIR POLLUTION SPECIALIST at 2.1 and then again at 2.1 and then again at 2.0 22. WBC is elevated at 14.1 - infected tooth 23. Call if need Rx's 24. Patient told must F/U with PCP about low potassium 25. Potassium was low at 3.1 and is now normal at 3.8 26. ESR was normal at 7 and still is at 2 27. CRP was elevated at 11.2 and is now negative at < 0.1 28 Hep C viral load by PCR was negative 29. Greater that 100 mg Lyrica a day causes side effects 30. Patient educated on sun protection and sun avoidance. 31. Lab on or about 05/17/2020 32. F/U with me in 6 months documented in this encounter* Nicolas Finnegan Jr., DO - 11/20/2018 1:45 PM EST History of Present Illness Presence of Pain: complains of pain/discomfort (11/20/181414), Pain Location: shoulder, right;shoulder, left;back;hip, left;hip, right;knee, left;knee, right;foot, left;foot, right (11/20/181414), Select Pain Scale: DVPRS (Defense and Veterans Pain Rating Scale) (Adult-Cognitively Intact) (11/20/181414), DVPRS: Rest: 4- mild pain (11/20/181414), Select Pain Scale: DVPRS (Defense and Veterans Pain Rating Scale) (Adult-Cognitively Intact) (11/20/181414) . Energy level is low and problems with IBS and gastroparesis continues. Joint pain is yes. Back pain is yes. Muscle pain is yes. Neck pain is yes. Patient has not had a bad migraine just headaches. Nothing new with tremors. Duexis helps. Review of Systems Constitutional: Positive for fatigue. HENT: Negative. Eyes: Negative. Respiratory: Negative. Cardiovascular: Negative. Gastrointestinal: Positive for abdominal distention, abdominal pain, constipation and diarrhea. IBS Gastroparesis Endocrine: Negative. Genitourinary: Negative. Musculoskeletal: Positive for arthralgias, back pain, myalgias, neck pain and neck stiffness. Skin: Positive for rash. Allergic/Immunologic: Negative. Neurological: Positive for tremors and headaches. Migraines Hematological: Negative. Psychiatric/Behavioral: Negative. Vitals: Blood pressure 118/82, pulse 87, temperature 97.9 F (36.6 C), temperature source Temporal, resp. rate 16, height 1.524 m (5'), weight 70.7 kg (155 lb 12.8 oz), SpO2 98 %. Physical Exam Constitutional: She is oriented to person, place, and time. She appears well- developed and well-nourished. HENT: Head: Normocephalic and atraumatic. Right Ear: External ear normal. Left Ear: External ear normal. Nose: Nose normal. Mouth/Throat: Oropharynx is clear and moist. Eyes: Pupils are equal, round, and reactive to light. Conjunctivae and EOM are normal. Glasses Neck: Neck supple. Cardiovascular: Normal rate, regular rhythm and normal heart sounds. Pulses: Radial pulses are 2+ on the right side, and 2+ on the left side. Pulmonary/Chest: Effort normal and breath sounds normal. Abdominal: Soft. Bowel sounds are normal. Obese Musculoskeletal: Right shoulder: She exhibits tenderness. Left shoulder: She exhibits tenderness. Right elbow: Normal. Left elbow: Normal. Right wrist: She exhibits decreased range of motion. Left wrist: She exhibits decreased range of motion and crepitus. Right knee: She exhibits decreased range of motion. Tenderness found. Left knee: She exhibits decreased range of motion. Tenderness found. Right upper arm: She exhibits tenderness. Left upper arm: She exhibits tenderness. Right forearm: Normal. Left forearm: Normal. Right hand: She exhibits decreased range of motion. Left hand: She exhibits decreased range of motion. Hands: Right upper leg: Normal. Left upper leg: Normal. Right lower leg: Normal. Left lower leg: Normal. Neurological: She is alert and oriented to person, place, and time. She has normal strength. She displays a negative Romberg sign. Skin: Skin is warm and dry. Psychiatric: She has a normal mood and affect. Her behavior is normal. Judgment and thought contentnormal. Nursing note and vitals reviewed. Neurologic Exam Mental Status Oriented to person, place, and time. Cranial Nerves CN III, IV, Pupils are equal, round, and reactive to light. Extraocular motions are normal. Motor Exam Strength Strength 5/5 throughout. Assessment and Plan Encounter Diagnoses Name Primary? Positive SAVANNA (antinuclear antibody) Yes Positive double stranded DNA antibody test Gastroparesis Hyperuricemia Hypokalemia Fibromyalgia DDD (degenerative disc disease), cervical Lumbar degenerative disc disease Osteoarthritis of both hands, unspecified osteoarthritis type Osteoarthritis of lumbar spine, unspecified spinal osteoarthritis complication status Other cervical disc degeneration, unspecified cervical region Other intervertebral disc degeneration, lumbar region Primary osteoarthritis, left hand Primary osteoarthritis, right hand Other specified abnormal immunological findings in serum Anti-AIR POLLUTION SPECIALIST antibodies present Hepatitis A antibody positive Hepatitis B antibody positive Hepatitis C antibody positive in blood History of fibromyalgia History of positive double stranded DNA antibody test History of systemic lupus erythematosus (SLE) [employer] 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 Time was spent with the patient today in education in re: to all their medical conditions. A complete H&P&ROS was obtained and is either in this note or in the EHR. Please do not hesitate to contact me with any questions or concerns re: this patient. Past History Past medical, surgical, family, and social histories have been reviewed and updated with the patient today and are located elsewhere in the medical record. 2. Thank you for allowing me to participate in the care of your patient. With your permission I would like to F/U with your patient. 3. Negative ANCA, HLA-B27, Histone, Celiac, CCP, RF 4. Positive Hep A Ab, total 5. Vit D under care of PCP 6. Stop OTC IBP 7. Positive Hep C antibody 8. Monitor CBC/LFT/Renal func every 6-12 months as long as patient is on daily NSAID 9. Patient is also taking Cranberry 10. Call if need Rx's 11. F/U with me in 4 months 12. If shoulder and wrist and hand and hip problems continue rec: ortho eval 13. Positive Hep B surface antibody - Vaccine 14. C4 was normal at 24 15. C3 was normal at 135 16. Patient given educational material on fibromyalgia syndrome in the form of a pamphlet from the arthritis foundation. Patient told that generalized stretching and aerobic exercise would be the cornerstone of treatment. Patient would benefit from psych eval and treatment of any underlying depression and/or anxiety disorder. Patient would benefit from eval and F/U treatment by PMR and/or ChronicPain Management 17. RX given for PT/OT - patient declines 18. NAYAN level was normal at 33 19. Positive SAVANNA 20. Positive dsDNA at 55 21. Positive AIR POLLUTION SPECIALIST at 2.1 22. Potasium was low at 3.3 and is now normal at 3.5 23. Lab to be done on or about 03/03/19 24. Patient told must F/U with PCP about low potassium 25. Uric acid was a little elevated at 6.5 26. Would monitor Uric acid every 6-12 months and would start urate lowering therapy if uric acid got about 7 or if patient develops gout or kidney stones 27. Patient given educational material on gout in the form of a pamphlet from the arthritis foundation. 28. ESR was normal at 3 and still is at 3 29. C4 was normal at 24 and still is at 21 30. C3 was normal at 135 and still is at 122 31. CRP was negative at 9.9 and still is at < 2.9 32. Hep C viral load by PCR was negative documented in this encounter* Nicolas Finnegan Jr., DO - 03/19/2019 2:30 PM EDT History of Present Illness Presence of Pain: complains of pain/discomfort (03/19/19 1523), Select Pain Scale: DVPRS (Defense and Veterans Pain Rating Scale) (Adult-Cognitively Intact) (03/19/19 1523), DVPRS: Rest: 2- mild pain(03/19/19 1523), DVPRS: Activity: 2- mild pain (03/19/19 1523), Select Pain Scale: DVPRS (Defense and Veterans Pain Rating Scale) (Adult-Cognitively Intact) (03/19/19 1523) . Due to complex issues I spent at least 34 minutes in face to face time with patient, more than 50% of that time was spent oncounseling and coordination of care. Patient is being evaluated for an unstable chronic illness that increase morbidity and mortality. Energy level is poor. IBS and Gastroparesis is stable but still has a lot of diarrhea. Joint pain is yes. Back pain is yes. Muscle pain is yes. Neck pain is yes andis the worse. Neuro did a prednisone taper and started Lyrica has helped but is making her feel weird. She also go another x-ray of her neck and she is feeling more depressed and irritable. Tremors are nothing more than normal. Patient is here for their 4 month F/u. Patient states that she has been okay since her last visit. 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 Treated forResp infection since last seen. Duexis helping and not bothering her at PRN. Review of Systems Constitutional: Positive for fatigue. HENT: Negative. Eyes: Negative. Respiratory: Negative. Cardiovascular: Positive for leg swelling. Gastrointestinal: Positive for abdominal distention and diarrhea. IBS Gastroparesis Endocrine: Negative. Genitourinary: Negative. Musculoskeletal: Positive for arthralgias, back pain, myalgias, neck pain and neck stiffness. Skin: Positive for rash. Allergic/Immunologic: Negative. Neurological: Positive for tremors and headaches. Migraines Hematological: Negative. Psychiatric/Behavioral: Depression Vitals: Blood pressure 112/76, pulse 100, temperature 97.8 F (36.6 C), temperature source Temporal,weight 70 kg (154 lb 6.4 oz), SpO2 97 %. Physical Exam Constitutional: She is oriented to person, place, and time. She appears well- developed and well-nourished. HENT: Head: Normocephalic and atraumatic. Right Ear: External ear normal. Left Ear: External ear normal. Nose: Nose normal. Mouth/Throat: Oropharynx is clear and moist. Eyes: Pupils are equal, round, and reactive to light. Conjunctivae and EOM are normal. Glasses Neck: Neck supple. Cardiovascular: Normal rate, regular rhythm and normal heart sounds. Pulses: Radial pulses are 2+ on the right side, and 2+ on the left side. Pulmonary/Chest: Effort normal and breath sounds normal. Abdominal: Soft. Bowel sounds are normal. Obese Musculoskeletal: Right shoulder: She exhibits decreased range of motion and tenderness. Left shoulder: She exhibits decreased range of motion and tenderness. Right elbow: Normal. Left elbow: Normal. Right wrist: She exhibits decreased range of motion and crepitus. Left wrist: She exhibits decreased range of motion and crepitus. Right knee: She exhibits decreased range of motion. Left knee: She exhibits decreased range of motion. Right upper arm: She exhibits tenderness. Left upper arm: She exhibits tenderness. Right forearm: Normal. Left forearm: Normal. Right hand: She exhibits decreased range of motion. Left hand: She exhibits decreased range of motion. Hands: Right upper leg: Normal. Left upper leg: Normal. Right lower leg: Normal. Left lower leg: Normal. Neurological: She is alert and oriented to person, place, and time. She has normal strength. She displays a negative Romberg sign. Skin: Skin is warm and dry. Psychiatric: She has a normal mood and affect. Her behavior is normal. Judgment and thought contentnormal. Nursing note and vitals reviewed. Neurologic Exam Mental Status Oriented to person, place, and time. Cranial Nerves CN III, IV, Pupils are equal, round, and reactive to light. Extraocular motions are normal. Motor Exam Strength Strength 5/5 throughout. Assessment and Plan Encounter Diagnoses Name Primary? 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 Time was spent with the patient today in education in re: to all their medical conditions. A complete H&P&ROS was obtained and is either in this note or in the EHR. Please do not hesitate to contact me with any questions or concerns re: this patient. Past History Past medical, surgical, family, and social histories have been reviewed and updated with the patient today and are located elsewhere in the medical record. 2. Thank you for allowing me to participate in the care of your patient. With your permission I would like to F/U with your patient. 3. Negative ANCA, HLA-B27, Histone, Celiac, CCP, RF 4. Positive Hep A Ab, total 5. Vit D under care of PCP 6. Stop OTC IBP 7. Positive Hep C antibody 8. Monitor CBC/LFT/Renal func every 6-12 months as long as patient is on daily NSAID 9. Patient is also taking Cranberry and Strattera 10. Patient has tried Plaquenil and Methotrexate and they did not help. 11. Rx given for Benlysta 12. Hold Benlysta month before and month after any surgery or live vaccine. Hold Benlysta anytime have an infection can restart once off of ATB and/or antiviral and free of infection. Hold Benlysta if have open wound and can restart once wound had healed. 13. Positive Hep B surface antibody - Vaccine 14. C4 was normal at 24 and still is at 19 15. C3 was normal at 135 and still is at 117 16. Patient given educational material on fibromyalgia syndrome in the form of a pamphlet from the arthritis foundation. Patient told that generalized stretching and aerobic exercise would be the cornerstone of treatment. Patient would benefit from psych eval and treatment of any underlying depression and/or anxiety disorder. Patient would benefit from eval and F/U treatment by PMR and/or ChronicPain Management 17. RX given for PT/OT - patient declines 18. NAYAN level was normal at 33 19. Positive SAVANNA (times 2) 20. Positive dsDNA at 55 and still is at 64 21. Positive AIR POLLUTION SPECIALIST at 2.1 and still is at 2.1 22. Glucose is elevated at 126 and patient is going to F/U with PCP 23. Lab on or about 07/03/19 24. Patient told must F/U with PCP about low potassium 25. Uric acid was a little elevated at 6.5 and is now normal at 5.3 26. F/u with me in 4 months 27. ESR was normal at 3 and still is at 1 29. CRP was negative at < 2.9 and still is at < 2.9 30 Hep C viral load by PCR was negative documented in this encounter Assessments Diagnosis Systemic lupus erythematosus, unspecified SLE type, unspecified organ involvement status- Primary Positive double stranded DNA antibody test Other and unspecified nonspecific immunological findings Positive SAVANNA (antinuclear antibody) Other and unspecified nonspecific immunological findings penitentiary (current) use of non-steroidal anti-inflammatories (nsaid) History of systemic lupus erythematosus (SLE) Personal history of other endocrine, metabolic, and immunity disorders History of positive double stranded DNA antibody test Other specified personal history presenting hazards to health History of fibromyalgia Personal history of other musculoskeletal disorders Hepatitis C antibody positive in blood Hepatitis B antibody positive Other and unspecified nonspecific immunological findings Hepatitis A antibody positive Other and unspecified nonspecific immunological findings Family history of diabetes mellitus Anti-AIR POLLUTION SPECIALIST antibodies present Other and unspecified nonspecific immunological findings Gastroparesis Hypokalemia Hypopotassemia Fibromyalgia Mylagia and myositis, unspecified Primary osteoarthritis, right hand Primary osteoarthritis, left hand Other intervertebral disc degeneration, lumbar region Other cervical disc degeneration, unspecified cervical region Osteoarthritis of lumbar spine, 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 of both hands, unspecified osteoarthritis type HNP (herniated nucleus pulposus), cervical Displacement of cervical intervertebral disc without myelopathy Lumbar degenerative disc disease Degeneration of lumbar or lumbosacral intervertebral disc DDD (degenerative disc disease), cervical Degeneration of cervical intervertebral disc Diagnosis Systemic lupus erythematosus, unspecified SLE type, unspecified organ involvement status Anti-AIR POLLUTION SPECIALIST antibodies present Other and unspecified nonspecific immunological findings Hepatitis A antibody positive Other and unspecified nonspecific immunological findings Hepatitis B antibody positive Other and unspecified nonspecific immunological findings Hepatitis C antibody positive in blood History of fibromyalgia Personal history of other musculoskeletal disorders History of positive double stranded DNA antibody test Other specified personal history presenting hazards to health History of systemic lupus erythematosus (SLE) Personal history of other endocrine, metabolic, and immunity disorders buttermaker continuous churn (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) use of antibiotics buttermaker continuous churn (current) use of non-steroidal anti-inflammatories (nsaid) Positive SAVANNA (antinuclear antibody) Other and unspecified nonspecific immunological findings Positive double stranded DNA antibody test Other and unspecified nonspecific immunological findings Gastroparesis Vitamin D deficiency Unspecified vitamin D deficiency Fibromyalgia Mylagia and myositis, unspecified DDD (degenerative disc disease), cervical Degeneration of cervical intervertebral disc HNP (herniated nucleus pulposus), cervical Displacement of cervical intervertebral disc without myelopathy Lumbar degenerative disc disease Degeneration of lumbar or lumbosacral intervertebral disc Osteoarthritis of both hands, unspecified osteoarthritis type Osteoarthritis of lumbar spine, unspecified spinal osteoarthritis complication status Other cervical disc degeneration, unspecified cervical region Other intervertebral disc degeneration, lumbar region Primary osteoarthritis, left hand Primary osteoarthritis, right hand Leukocytosis, unspecified type Diagnosis Hypokalemia- Primary Hypopotassemia Diagnosis Positive SAVANNA (antinuclear antibody)- Primary Other and unspecified nonspecific immunological findings Positive double stranded DNA antibody test Other and unspecified nonspecific immunological findings Gastroparesis Hyperuricemia Other abnormal blood chemistry Hypokalemia Hypopotassemia Fibromyalgia Mylagia and myositis, unspecified DDD (degenerative disc disease), cervical Degeneration of cervical intervertebral disc Lumbar degenerative disc disease Degeneration of lumbar or lumbosacral intervertebral disc Osteoarthritis of both hands, unspecified osteoarthritis type Osteoarthritis of lumbar spine, unspecified spinal osteoarthritis complication status Other cervical disc degeneration, unspecified cervical region Other intervertebral disc degeneration, lumbar region Other specified abnormal immunological findings in serum Anti-AIR POLLUTION SPECIALIST antibodies present Other and unspecified nonspecific immunological findings Hepatitis A antibody positive Other and unspecified nonspecific immunological findings Hepatitis B antibody positive Other and unspecified nonspecific immunological findings Hepatitis C antibody positive in blood History of fibromyalgia Personal history of other musculoskeletal disorders History of positive double stranded DNA antibody test Other specified personal history presenting hazards to health History of systemic lupus erythematosus (SLE) Personal history of other endocrine, metabolic, and immunity disorders buttermaker continuous churn (current) use of non-steroidal anti-inflammatories (nsaid) penitentiary current use of non-steroidal anti-inflammatories (NSAID) Encounter for long-term (current) use of non-steroidal anti-inflammatories Diagnosis Systemic lupus erythematosus, unspecified SLE type, unspecified organ involvement status- Primary Anti-AIR POLLUTION SPECIALIST antibodies present Other and unspecified nonspecific immunological findings Hepatitis A antibody positive Other and unspecified nonspecific immunological findings Hepatitis B antibody positive Other and unspecified nonspecific immunological findings Hepatitis C antibody positive in blood History of fibromyalgia Personal history of other musculoskeletal disorders History of positive double stranded DNA antibody test Other specified personal history presenting hazards to health History of systemic lupus erythematosus (SLE) Personal history of other endocrine, metabolic, and immunity disorders buttermaker continuous churn (current) use of non-steroidal anti-inflammatories (nsaid) Positive SAVANNA (antinuclear antibody) Other and unspecified nonspecific immunological findings Positive double stranded DNA antibody test Other and unspecified nonspecific immunological findings Fibromyalgia Mylagia and myositis, unspecified DDD (degenerative disc disease), cervical Degeneration of cervical intervertebral disc Lumbar degenerative disc disease Degeneration of lumbar or lumbosacral intervertebral disc Osteoarthritis of both hands, unspecified osteoarthritis type Osteoarthritis of lumbar spine, unspecified spinal osteoarthritis complication status Other cervical disc degeneration, unspecified cervical region Other intervertebral disc degeneration, lumbar region Reason for Referral Status Reason Specialty Diagnoses / Procedures Re ferred By Contact Referred To Contact Pending Review Diagnoses Systemic lupus erythematosus, unspecified SLE type, unspecified organ involvement status Anti-AIR POLLUTION SPECIALIST antibodies present Hepatitis A antibody positive Hepatitis B antibody positive Hepatitis C antibody positive in blood History of fibromyalgia History of positive double stranded DNA antibody test History of systemic lupus erythematosus (SLE) penitentiary (current) use of non-steroidal anti-inflammatories (nsaid) Positive SAVANNA (antinuclear antibody) Positive double stranded DNA antibody test Fibromyalgia DDD (degenerative disc disease), cervical Lumbar degenerative disc disease Osteoarthritis of both hands, unspecified osteoarthritis type Osteoarthritis of lumbar spine, unspecified spinal osteoarthritis complication status Other cervical disc degeneration, unspecified cervical region Other intervertebral disc degeneration, lumbar region Primary osteoarthritis, left hand Primary osteoarthritis, right hand Kain Mendes, Nicolas Cannon, DO [address] [place] [address] Specialty Diagnoses / Procedures Referred By Jeannine trujillo Referred To Contact Diagnoses Irritable bowel syndrome with constipation Dylon Rea, DO [address] [place] [address] Referral ID Status Reason Start Date Expiration Date V isits Requested Visits Authorized [id number] Pending Review 1 1 Summary Purpose Family History No Family History Records FoundNo Family History Records FoundNo Family History Records FoundNo Family History Records FoundNo Family History Records FoundNo Family History Records Found Advance Directives No Advanced Directives Records FoundDocuments on File Type Date Recorded 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 Advance Directive(s) 04/28/2020 6:19 PM Advance Directive(s) 04/16/2020 3:28 PM Medications Administered Section Inactive Administered Medications - up to 3 most recent administrations Medication Order MAR Action Action Date Dose Rate Site lactated ringers iv infusion 30 mL/hr, INTRAVENOUS, CONTINUOUS, Starting on Sun07/31/22 at 1030, Until Sun07/31/22 at 1117, Preprocedure New Bag/Syringe/Bottle 07/31/2022 10:30 AM EDT 30 mL/hr 30 mL/hr Additional Source Comments Reason for Visit (unrecogniz ed section and content) Reason Comments Medication Management benlysta Reason Comments Joint Pain Patient is here toda y for their 4 month F/u. Patient statest that she has been okay since her last appointment. Patient states that there is nothing new. Patient states that she jaramillo a protruding disc in her neck. Reason Comments Joint Pain Patient is here for a 4mo follow up. Patient states that she is feeling about the same since her last visit but that she has been very tired. Reason Comments Insurance Benlysta Reason Comments Results Reason Comments Joint Pain Reason Comments Joint Pain Patient is here for their 4 month F/u. Patient states that she has been okay since her last visit. 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 Reason Comments Medication Refill Reason Comments Orders Reason Comments Refill Request Reason Comments Refill Request zelnorm Reason Comments Patient Update Reason Comments Results Reason Comments misc reports recieved Reason Comments Establish Care GP f/u Reason Comments Medication Preauthorization PA Ibsrela Reason Comments referral on IVIG patient Reason Comments Appointment Reason Comments request of information Reason Onset Date Comments Refill Request 05/07/2023 Reason Comments Medication Preauthorization PA for Ibsre la INFORMATION SOURCE (unrecogn ized section and content) DATE CREATED AUTHOR AUTHOR'S ORGANIZ ATION 12/15/2022 [facility] DATE CREATED AUTHOR AUTHOR'S ORGANIZ ATION 05/31/2023 [facility] DATE CREATED AUTHOR AUTHOR'S ORGANIZ ATION 06/10/2023 [facility] DATE CREATED AUTHOR AUTHOR'S ORGANIZ ATION 07/14/2023 [facility] DATE CREATED AUTHOR AUTHOR'S ORGANIZ ATION 08/22/2023 [facility] Source Comments (unrecognize d section and content) In the event this informatio n is protected by the Federal Confidentiality of Alcohol and Drug Abuse Patient Records regulations: The Federal rules restrict any use of the information to criminally investigate or prosecute any alcohol or drug abuse patient.[facility] the event this information is protected by the Federal Confidentiality of Alcohol and Drug Abuse Patient Records regulations: The Federal rules restrict any use of the information to criminally investigate or prosecute any alcohol or drug abuse patient.[facility] the event this information is protected by the Federal Confidentiality of Alcohol and Drug Abuse Patient Records regulations: The Federal rules restrict any use of the information to criminally investigate or prosecute any alcohol or drug abuse patient.[facility] the event this information is protected by the Federal Confidentiality of Alcohol and Drug Abuse Patient Records regulations: The Federal rules restrict any use of the information to criminally investigate or prosecute any alcohol or drug abuse patient.[facility] the event this information is protected by the Federal Confidentiality of Alcohol and Drug Abuse Patient Records regulations: The Federal rules restrict any use of the information to criminally investigate or prosecute any alcohol or drug abuse patient.[facility] the event this information is protected by the Federal Confidentiality of Alcohol and Drug Abuse Patient Records regulations: The Federal rules restrict any use of the information to criminally investigate or prosecute any alcohol or drug abuse patient.[facility] the event this information is protected by the Federal Confidentiality of Alcohol and Drug Abuse Patient Records regulations: The Federal rules restrict any use of the information to criminally investigate or prosecute any alcohol or drug abuse patient.[facility] the event this information is protected by the Federal Confidentiality of Alcohol and Drug Abuse Patient Records regulations: The Federal rules restrict any use of the information to criminally investigate or prosecute any alcohol or drug abuse patient.[facility] the event this information is protected by the Federal Confidentiality of Alcohol and Drug Abuse Patient Records regulations: The Federal rules restrict any use of the information to criminally investigate or prosecute any alcohol or drug abuse patient.[facility] the event this information is protected by the Federal Confidentiality of Alcohol and Drug Abuse Patient Records regulations: The Federal rules restrict any use of the information to criminally investigate or prosecute any alcohol or drug abuse patient.[facility] the event this information is protected by the Federal Confidentiality of Alcohol and Drug Abuse Patient Records regulations: The Federal rules restrict any use of the information to criminally investigate or prosecute any alcohol or drug abuse patient.[facility] the event this information is protected by the Federal Confidentiality of Alcohol and Drug Abuse Patient Records regulations: The Federal rules restrict any use of the information to criminally investigate or prosecute any alcohol or drug abuse patient.[facility] the event this information is protected by the Federal Confidentiality of Alcohol and Drug Abuse Patient Records regulations: The Federal rules restrict any use of the information to criminally investigate or prosecute any alcohol or drug abuse patient.[facility]In the event this information is protected by the Federal Confidentiality of Alcohol and Drug Abuse Patient Records regulations: The Federal rules restrict any use of the information to criminally investigate or prosecute any alcohol or drug abuse patient.[facility] HospitalIn the event this information is protected by the Federal Confidentiality of Alcohol and Drug Abuse Patient Records regulations: The Federal rules restrict any use of the information to criminally investigate or prosecute any alcohol or drug abuse patient.[facility]In the event this information is protected by the Federal Confidentiality of Alcohol and Drug Abuse Patient Records regulations: The Federal rules restrict any use of the information to criminally investigate or prosecute any alcohol or drug abuse patient.[facility]In the event this information is protected by the Federal Confidentiality of Alcohol and Drug Abuse Patient Records regulations: The Federal rules restrict any use of the information to criminally investigate or prosecute any alcohol or drug abuse patient.[facility] HospitalIn the event this information is protected by the Federal Confidentiality of Alcohol and Drug Abuse Patient Records regulations: The Federal rules restrict any use of the information to criminally investigate or prosecute any alcohol or drug abuse patient.[facility] HospitalIn the event this information is protected by the Federal Confidentiality of Alcohol and Drug Abuse Patient Records regulations: The Federal rules restrict any use of the information to criminally investigate or prosecute any alcohol or drug abuse patient.[facility] HospitalIn the event this information is protected by the Federal Confidentiality of Alcohol and Drug Abuse Patient Records regulations: The Federal rules restrict any use of the information to criminally investigate or prosecute any alcohol or drug abuse patient.[facility] HospitalIn the event this information is protected by the Federal Confidentiality of Alcohol and Drug Abuse Patient Records regulations: The Federal rules restrict any use of the information to criminally investigate or prosecute any alcohol or drug abuse patient.[facility] HospitalIn the event this information is protected by the Federal Confidentiality of Alcohol and Drug Abuse Patient Records regulations: The Federal rules restrict any use of the information to criminally investigate or prosecute any alcohol or drug abuse patient.[facility] HospitalIn the event this information is protected by the Federal Confidentiality of Alcohol and Drug Abuse Patient Records regulations: The Federal rules restrict any use of the information to criminally investigate or prosecute any alcohol or drug abuse patient.[facility] HospitalIn the event this information is protected by the Federal Confidentiality of Alcohol and Drug Abuse Patient Records regulations: The Federal rules restrict any use of the information to criminally investigate or prosecute any alcohol or drug abuse patient.[facility]In the event this information is protected by the Federal Confidentiality of Alcohol and Drug Abuse Patient Records regulations: The Federal rules restrict any use of the information to criminally investigate or prosecute any alcohol or drug abuse patient.[facility]In the event this information is protected by the Federal Confidentiality of Alcohol and Drug Abuse Patient Records regulations: The Federal rules restrict any use of the information to criminally investigate or prosecute any alcohol or drug abuse patient.[facility]In the event this information is protected by the Federal Confidentiality of Alcohol and Drug Abuse Patient Records regulations: The Federal rules restrict any use of the information to criminally investigate or prosecute any alcohol or drug abuse patient.[facility] Care Teams (unrecognized sec tion and content) Product Design Engineer Relationship Specialty Start Date End Date Grzegorz Mc [address] [place] [address] PCP - General Family Practice 02/03/20 Grzegorz Mc [address] [place] [address] Referring Family Practice 01/30/18 Product Design Engineer Relationship Specialty Start Date End Date Grzegorz Mc [address] [place] [address] PCP - General Family Practice 02/03/20 Grzegorz Mc [address] [place] [address] Referring Family Practice 01/30/18 Product Design Engineer Relationship Specialty Start Date End Date Grzegorz Mc [address] [place] [address] PCP - General Family Practice 02/03/20 Grzegorz Mc [address] [place] [address] Referring Family Practice 01/30/18 Product Design Engineer Relationship Specialty Start Date End Date Grzegorz Mc [address] [place] [address] PCP - General Family Practice 02/03/20 Grzegorz Mc [address] [place] [address] Referring Family Practice 01/30/18 Product Design Engineer Relationship Specialty Start Date End Date Grzegorz Mc [address] [place] [address] PCP - General Family Medicine 02/03/20 Grzegorz Mc [address] [place] [address] Referring Family Medicine 01/30/18 Product Design Engineer Relationship Specialty Start Date End Date Grzegorz Mc [address] [place] [address] PCP - General Family Medicine 02/03/20 Grzegorz Mc [address] [place] [address] Referring Family Medicine 01/30/18 Product Design Engineer Relationship Specialty Start Date End Date Grzegorz Mc [address] [place] [address] PCP - General Family Medicine 02/03/20 Grzegorz Mc [address] [place] [address] Referring Family Medicine 01/30/18 Product Design Engineer Relationship Specialty Start Date End Date Grzegorz Mc [address] [place] [address] PCP - General Family Medicine 02/03/20 Grzegorz Mc [address] [place] [address] Referring Family Medicine 01/30/18 Product Design Engineer Relationship Specialty Start Date End Date Grzegorz Mc [address] [place] [address] PCP - General Family Medicine 02/03/20 Grzegorz Mc [address] [place] [address] Referring Family Medicine 01/30/18 Product Design Engineer Relationship Specialty Start Date End Date Grzegorz Mc [address] [place] [address] PCP - General Family Medicine 02/03/20 Grzegorz Mc [address] [place] [address] Referring Family Medicine 01/30/18 Product Design Engineer Relationship Specialty Start Date End Date Grzegorz Mc [address] [place] [address] PCP - General Family Medicine 02/03/20 Grzegorz Mc [address] [place] [address] Referring Family Medicine 01/30/18 Product Design Engineer Relationship Specialty Start Date End Date Grzegorz Mc [address] [place] [address] PCP - General Family Medicine 02/03/20 Grzegorz Mc [address] [place] [address] Referring Family Medicine 01/30/18 Product Design Engineer Relationship Specialty Start Date End Date Grzegozr Mc [address] [place] [address] PCP - General Family Medicine 02/03/20 Grzegorz Mc [address] [place] [address] Referring Family Medicine 01/30/18 Product Design Engineer Relationship Specialty Start Date End Date Grzegorz Mc [address] [place] [address] PCP - General Family Medicine 02/03/20 Grzegorz Mc [address] [place] [address] Referring Family Medicine 01/30/18 Product Design Engineer Relationship Specialty Start Date End Date Grzegorz Mc [address] [place] [address] PCP - General Family Medicine 02/03/20 Grzegorz Mc [address] [place] [address] Referring Family Medicine 01/30/18 Product Design Engineer Relationship Specialty Start Date End Date Grzegorz Mc MD [address] [place] [address] PCP - General Family Medicine 02/03/20 Grzegorz Mc MD [address] [place] [address] Referring Family Medicine 01/30/18 Product Design Engineer Relationship Specialty Start Date End Date Grzegorz Mc MD [address] [facility] [address] [place], [place] [address] PCP - General Family Medicine 02/03/20 Grzegorz Mc MD [address] [facility] [address] [place] [address] Referring Family Medicine 01/30/18 Product Design Engineer Relationship Specialty Start Date End Date Grzegorz Mc MD [address] [facility] [address] [place] [address] PCP - General Family Medicine 02/03/20 Grzegorz Mc MD [address] [facility] [address] [place], [place] [address] Referring Family Medicine 01/30/18 FOR RECORDS PERTAINING TO PATIENTS WHO ARE OR HAVE BEEN ENROLLED IN A CHEMICAL DEPENDENCY/SUBSTANCEABUSE PROGRAM, SOME INFORMATION MAY BE OMITTED. This clinical summary was aggregated from multiple sources. Caution should be exercised in using it in the provision of clinical care. This summary normalizes information from multiple sources, and as a consequence, information in this document may materially change the coding, format and clinical context of patient data. In addition, data may be omitted in some cases. CLINICAL DECISIONS SHOULD BE BASED ON THE PRIMARY CLINICAL RECORDS. [employer] [facility]. provides no warranty or guarantee of the accuracy or completeness of information in this document.
[2023-10-17 16:48] LABS: CREATININE FINGERSTICK < 1.0 mg/dL (0.55-1.02); EGFR FINGERSTICK > 60.0000 mL/min (>60)
== END | disposition home or self-care (01) ==
LOC: CT 13:59
PROVIDERS: PCP Family Medicine; Referring Provider Nurse Practitioner Family; Visit Provider Nurse Practitioner Family
DX: R10.9 Unspecified abdominal pain (principal)
CPT/HCPCS: 74160; Q9967

== ENCOUNTER → 2023-11-07 | Outpatient (CLI) | payer OTHER, SELFPAY ==
--- NOTE | 2023-11-07 15:29 | MRI_ITS ---
STUDY: MRI CERVICAL SPINE WITHOUT CONTRAST REASON FOR EXAM: Female, 53 years old. CERVICALGIA TECHNIQUE: Standardized fat and water weighted pulse sequences were obtained in the sagittal and axial planes. COMPARISON: None FINDINGS: Normal foramen magnum and brainstem-cervical cord junction. Normal craniovertebral junction. Normal anterior atlantoaxial articulation. Normal odontoid process. Normal cervical lordosis. Normal vertebral bodies and posterior osseous elements. C2-3: Mild disc desiccation with no significant spinal canal narrowing or foraminal narrowing. C3-4: Mild disc desiccation with no significant spinal canal narrowing or foraminal narrowing. C4-5: Mild disc desiccation with no significant spinal canal narrowing or foraminal narrowing. C5-6: Degenerative disc changes with central protrusion and mild extrusion causing mild ventral spinal cord abutment and mild spinal canal narrowing at this level. No significant foraminal narrowing is noted. C6-7: Mild disc desiccation with no significant spinal canal narrowing or foraminal narrowing. C7-T1: Normal endplates. Normal disc height, signal and morphology. Normal central canal and intervertebral neural foramina. Normal cervical cord. Normal visualized soft tissue structures. MRI/Spine Cervical (Routine) IMPRESSION: C5-6 central disc protrusion with mild extrusion causing ventral spinal cord abutment and mild spinal canal narrowing at this level. No significant cord signal abnormality or foraminal narrowing is present. Electronically Signed: Bao Lucio DO at 17:09 EST ,
== END | disposition home or self-care (01) ==
LOC: MRI 15:21
PROVIDERS: PCP Family Medicine; Referring Provider Physician Assistant; Visit Provider Physician Assistant
DX: M54.2 Cervicalgia (principal)
CPT/HCPCS: 72141

== ENCOUNTER → 2023-11-28 | Outpatient (CLI) | payer OTHER, SELFPAY ==
[2023-11-28 10:57] LABS: Mucous, Urine 0 SEEN /hpf (<or=2+); Red Blood Cells-Urine 0 SEEN /hpf (0-5); White Blood Cells 0 SEEN /hpf (0-5)
[2023-11-28 11:23] LABS: Color, Urine Yellow (Yellow); Glucose, Dipstick Normal (Normal); Ketone-Dipstick Negative (Negative); Leukocyte Esterase-Dipstick 100 /ul (Negative); Nitrite-Dipstick Negative (Negative); Occult Blood-Urine Negative /ul (Negative); Protein-Dipstick 15 mg/dl (Negative); Urine Bilirubin Dipstick Negative (Negative); Urine Clarity Clear (Clear); Urine Urobilinogen Normal (Normal)
[2023-11-28 11:31] LABS: Hemoglobin A1c 7.1 % (3.8-5.6)
[2023-11-28 11:44] LABS: Vitamin D,25 Hydroxy 60.4 ng/mL
[2023-11-28 11:45] LABS: Bacteria RARE /hpf (None Seen); Squamous Epithelial Cells - UA 10-25 SEEN /hpf (5-10)
[2023-11-28 11:45] LABS: Microalbumin:Creatinine Ratio 9.8 mg/g CRE (<30 mg/g CRE)
[2023-11-28 11:48] LABS: ALB/GLOB Ratio 1.4 RATIO (0.9-2.4); AST(SGOT) 40 U/L (15-37); Alanine Aminotransfer ALT/SGPT 57 U/L (13-56); Albumin, Serum 4.4 g/dL (3.2-5.0); Alkaline Phosphatase 118 U/L (45-117); Anion Gap 3 (5-15); BUN 10 mg/dL (7-18); BUN/Creat Ratio 15.5 RATIO (10-20); CPK Total, Creatine Kinase 80 U/L (26-192); CRP < 2.90 mg/L (0.0-3.0); Calcium,Total 10.2 mg/dL (8.5-10.1); Chloride 109 mmol/L (98-107); Cholesterol 170 mg/dL (200); Creatinine, Serum 0.64 mg/dL (0.55-1.02); EST Glomerular Filtration Rate 102 mL/min (>60); Est Glom Filt Rate - Afr Amer 124 mL/min (>60); Globulin 3.1 g/dL (2.2-4.2); Glucose 111 mg/dL (74-106); High Density Lipoprotein 47 mg/dL; Potassium 4.2 mmol/L (3.5-5.1); Protein, Total 7.5 g/dL (6.4-8.2); Sodium Level 141 mmol/L (136-145); Triglycerides 178 mg/dL; Very Low Density Lipoprotein 36 mg/dL (5-40)
[2023-11-28 11:49] LABS: Absolute Lymphocyte Count 2.24 X10^3/uL (0.83-4.51); Absolute Neutrophil Count 3.6 X10^3/uL (2.0-7.7); Basophil# 0.06 X10^3/uL; Basophil% 0.9 % (0-1); Eosinophil# 0.36 X10^3/uL; Eosinophils% 5.3 % (0-5); Erythrocyte Sedimentation Rate < 1 mm/hr (0-30); Hematocrit 41.9 % (37-47); Hemoglobin 13.4 g/dL (12.0-15.0); Lymphocyte # 2.24 X10^3/ul (0.83-4.51); Lymphocyte % 32.7 % (19-41); Mean Corpuscular Hgb 26.9 pg (27.0-32.0); Mean Platelet Vol. 10.6 fl (6.2-12.0); Monocyte# 0.61 X10^3/uL; Monocyte% 8.9 % (0-10); NRBC Flagged by Analyzer 0 % (0-5); Neutrophil # 3.55 X10^3/uL (2.7-7.7); Neutrophil % 51.8 % (47-70); Platelet Count 277 K/mm3 (150-450); RBC Distribution Width SD 54.9 fl (35.1-43.9); Red Blood Count 4.99 M/mm3 (4.2-5.4); White Blood Count 6.9 K/mm3 (4.4-11.0)
[2023-11-29 05:08] LABS: Complement C3 150 mg/dL (82-167)
[2023-11-30 12:09] LABS: Vitamin D 1,25-Dihydroxy 80.9 pg/mL (24.8-81.5)
== END | disposition home or self-care (01) ==
PROVIDERS: PCP Family Medicine; Referring Provider Family Medicine; Visit Provider Family Medicine
DX: M32.9 Systemic lupus erythematosus, unspecified (principal); R74.8 Abnormal levels of other serum enzymes; R76.8 Other specified abnormal immunological findings in serum; M79.7 Fibromyalgia; R94.5 Abnormal results of liver function studies; K75.81 Nonalcoholic steatohepatitis (NASH); E55.9 Vitamin D deficiency, unspecified; R73.9 Hyperglycemia, unspecified; M50.20 Other cervical disc displacement, unspecified cervical region; M50.30 Other cervical disc degeneration, unspecified cervical region; M51.36 Other intervertebral disc degeneration, lumbar region; M19.041 Primary osteoarthritis, right hand; M19.042 Primary osteoarthritis, left hand; M47.816 Spondylosis without myelopathy or radiculopathy, lumbar region; D72.829 Elevated white blood cell count, unspecified; Z78.0 Asymptomatic menopausal state; Z79.52 Long term (current) use of systemic steroids; Z92.89 Personal history of other medical treatment
CPT/HCPCS: 36415; 80053; 80061; 81001; 82043; 82306; 82550; 82570; 82652; 83036; 83735; 85025; 85652; 86140; 86160

== ENCOUNTER → 2024-03-06 | Outpatient (CLI) | payer OTHER, SELFPAY ==
[2024-03-06 11:54] LABS: Bacteria 0 SEEN /hpf (None Seen); Mucous, Urine 0 SEEN /hpf (<or=2+); Red Blood Cells-Urine 0 SEEN /hpf (0-5); Squamous Epithelial Cells - UA 0 SEEN /hpf (5-10); White Blood Cells 0 SEEN /hpf (0-5)
[2024-03-06 12:32] LABS: Absolute Lymphocyte Count 2.37 X10^3/uL (0.83-4.51); Absolute Neutrophil Count 5.1 X10^3/uL (2.0-7.7); Basophil# 0.13 X10^3/uL; Basophil% 1.5 % (0-1); Eosinophil# 0.56 X10^3/uL; Eosinophils% 6.3 % (0-5); Lymphocyte # 2.37 X10^3/ul (0.83-4.51); Lymphocyte % 26.6 % (19-41); Mean Corp Hgb Conc 32.6 g/dL (32-36); Mean Corpuscular Hgb 28.6 pg (27.0-32.0); Mean Corpuscular Volume 87.9 fL (81-99); Mean Platelet Vol. 10.8 fl (6.2-12.0); Monocyte% 7.8 % (0-10); NRBC Flagged by Analyzer 0 % (0-5); Neutrophil # 5.13 X10^3/uL (2.7-7.7); Neutrophil % 57.5 % (47-70); Platelet Count 300 K/mm3 (150-450); RBC Distribution Width CV 13.8 % (11.6-14.6); RBC Distribution Width SD 44.2 fl (35.1-43.9); Red Blood Count 4.89 M/mm3 (4.2-5.4); White Blood Count 8.9 K/mm3 (4.4-11.0)
[2024-03-06 12:34] LABS: Erythrocyte Sedimentation Rate 2 mm/hr (0-30)
[2024-03-06 13:00] LABS: PTHIN 48.2 pg/mL (18.4-80.1)
[2024-03-06 13:46] LABS: ALB/GLOB Ratio 1.4 RATIO (0.9-2.4); AST(SGOT) 57 U/L (15-37); Alanine Aminotransfer ALT/SGPT 57 U/L (13-56); Albumin, Serum 4.5 g/dL (3.2-5.0); Alkaline Phosphatase 103 U/L (45-117); Anion Gap 9 (5-15); BUN 9 mg/dL (7-18); BUN/Creat Ratio 14.3 RATIO (10-20); CPK Total, Creatine Kinase 75 U/L (26-192); CRP < 2.90 mg/L (0.0-3.0); Chloride 104 mmol/L (98-107); Creatinine, Serum 0.63 mg/dL (0.55-1.02); EST Glomerular Filtration Rate 105 mL/min (>60); Est Glom Filt Rate - Afr Amer 127 mL/min (>60); Globulin 3.2 g/dL (2.2-4.2); Glucose 100 mg/dL (74-106); Potassium 3.8 mmol/L (3.5-5.1); Protein, Total 7.7 g/dL (6.4-8.2); Sodium Level 138 mmol/L (136-145)
[2024-03-06 19:49] LABS: Ionized Calcium Order ORDER TUBE
== END | disposition home or self-care (01) ==
PROVIDERS: PCP Family Medicine; Referring Provider Internal Medicine Rheumatology; Visit Provider Internal Medicine Rheumatology
DX: M32.9 Systemic lupus erythematosus, unspecified (principal); R73.09 Other abnormal glucose; R80.8 Other proteinuria; Z78.0 Asymptomatic menopausal state; R76.8 Other specified abnormal immunological findings in serum; Z79.52 Long term (current) use of systemic steroids; Z79.2 Long term (current) use of antibiotics; R79.89 Other specified abnormal findings of blood chemistry; Z92.89 Personal history of other medical treatment; Z87.39 Personal history of other diseases of the musculoskeletal system and connective tissue; R74.8 Abnormal levels of other serum enzymes; E55.9 Vitamin D deficiency, unspecified; K75.81 Nonalcoholic steatohepatitis (NASH)
CPT/HCPCS: 36415; 80053; 82330; 82550; 83970; 85025; 85652; 86140

== ENCOUNTER → 2024-03-27 | Outpatient (CLI) | payer OTHER, SELFPAY ==
--- NOTE | 2024-03-27 07:00 | ECHOD_ITS ---
Reason For Study: ABEBE, PALPITATIONS, FATIGUE Procedure This was a 2D Doppler, Color Flow transthoracic echocardiogram. Exam performed in department. Left Ventricle Normal LV size. The estimated ejection fraction is 60 %. No evidence for diastolic dysfunction. No regional wall motion abnormalities noted. Right Ventricle Normal RV size. Normal systolic function. Atria The left and right atria are normal. No doppler evidence for ASD. Mitral Valve There is no mitral valve stenosis. No mitral valve insufficiency. Tricuspid Valve There is no tricuspid stenosis. No tricuspid valve insufficiency. Aortic Valve There is no aortic stenosis. No aortic valve insufficiency. Pulmonic Valve There is no pulmonic valvular stenosis. No pulmonic valve insufficiency. Great Vessels Normal aortic root. Pericardium/Pleural No pericardial effusion. MMode/2D Measurements & Calculations LVIDd: 4.1 cm IVSd: 1.1 cm Ao root diam: 3.3 cm LVIDs: 2.7 cm LVPWd: 1.1 cm RVDd: 2.6 cm FS: 33.6 % LAV(MOD-bp): 42.2 ml LVAd ap4: 19.6 cm2 LVAd ap2: 14.8 cm2 LAV(MOD-bp) Indexed: 24.3 ml/m2 LVLd ap4: 7.2 cm LVLd ap2: 6.8 cm LAV(MOD-sp2): 40.8 ml EDV(MOD-sp4): 45.5 ml EDV(MOD-sp2): 27.7 ml LAV(MOD-sp4): 40.8 ml EDV(sp4-el): 45.6 ml EDV(sp2-el): 27.5 ml LVAs ap4: 11.9 cm2 LVAs ap2: 8.5 cm2 LVLs ap4: 5.8 cm LVLs ap2: 5.3 cm ESV(MOD-sp4): 20.4 ml ESV(MOD-sp2): 12.3 ml ESV(sp4-el): 20.4 ml ESV(sp2-el): 11.7 ml EF(MOD-sp4): 55.2 % EF(MOD-sp2): 55.6 % EF(sp4-el): 55.2 % SV(MOD-sp4): 25.1 ml SV(MOD-sp2): 15.4 ml SV(sp4-el): 25.2 ml LA dimension(2D): 3.6 cm LA A4 area: 15.8 cm2 RA A4 area: 9.7 cm2 TAPSE: 1.7 cm Time Measurements MV dec time: 0.14 sec Doppler Measurements & Calculations MV E max braulio: 66.0 cm/sec Lat Peak E' Braulio: 10.9 cm/sec Med Peak E' Braulio: 7.7 cm/sec MV A max braulio: 76.5 cm/sec E/E' lat: 6.1 E/E' med: 8.5 MV E/A: 0.86 MV V2 max: 71.4 cm/sec MV P1/2t max braulio: 63.8 cm/sec Ao V2 max: 117.8 cm/sec MV max P.0 mmHg MV P1/2t: 57.8 msec Ao max P.5 mmHg MV V2 mean: 48.6 cm/sec MV dec slope: 323.2 cm/sec2 Ao V2 mean: 85.1 cm/sec MV mean P.0 mmHg Ao mean P.1 mmHg MV V2 VTI: 17.2 cm MVA(P1/2t): 3.8 cm2 Ao V2 VTI: 21.0 cm AV (velocity ratio): 0.79 LV V1 max: 81.0 cm/sec PA V2 max: 96.8 cm/sec TR max braulio: 224.9 cm/sec LV V1 max P.6 mmHg PA V2 mean: 67.0 cm/sec TR max P.2 mmHg LV V1 mean P.4 mmHg LV V1 mean: 57.5 cm/sec LV V1 VTI: 16.6 cm ECHO/Echo Complete Interpretation Summary The estimated ejection fraction is 60 %. No evidence for diastolic dysfunction. Ordering Physician: SWATI BEAN Referring Physician: Sky Mei Performed By: Dulce Apple, KARLACS, RVT
== END | disposition home or self-care (01) ==
PROVIDERS: PCP Family Medicine
DX: R00.2 Palpitations (principal); R00.0 Tachycardia, unspecified; I10 Essential (primary) hypertension; R06.09 Other forms of dyspnea; R53.82 Chronic fatigue, unspecified
CPT/HCPCS: 93306

== ENCOUNTER → 2024-03-28 | Outpatient (CLI) | payer OTHER, SELFPAY ==
[2024-03-28 16:16] LABS: AST(SGOT) 47 U/L (15-37); Alanine Aminotransfer ALT/SGPT 46 U/L (13-56)
== END | disposition home or self-care (01) ==
LOC: LAB 15:12
PROVIDERS: PCP Family Medicine; Referring Provider Internal Medicine Rheumatology; Visit Provider Internal Medicine Rheumatology
DX: R79.89 Other specified abnormal findings of blood chemistry (principal)
CPT/HCPCS: 36415; 84450; 84460

== ENCOUNTER → 2024-04-14 | Outpatient (CLI) | payer OTHER, SELFPAY ==
[2024-04-14 08:09] LABS: Bacteria 0 SEEN /hpf (None Seen); Mucous, Urine 0 SEEN /hpf (<or=2+); Red Blood Cells-Urine 0 SEEN /hpf (0-5)
[2024-04-14 08:24] LABS: Absolute Lymphocyte Count 2.31 X10^3/uL (0.83-4.51); Absolute Neutrophil Count 4.9 X10^3/uL (2.0-7.7); Basophil% 1.2 % (0-1); Eosinophil# 0.57 X10^3/uL; Eosinophils% 6.8 % (0-5); Hemoglobin 13.4 g/dL (12.0-15.0); Lymphocyte # 2.31 X10^3/ul (0.83-4.51); Lymphocyte % 27.5 % (19-41); Mean Corp Hgb Conc 32.7 g/dL (32-36); Mean Corpuscular Hgb 29.3 pg (27.0-32.0); Mean Corpuscular Volume 89.5 fL (81-99); Mean Platelet Vol. 10.6 fl (6.2-12.0); Monocyte# 0.54 X10^3/uL; Monocyte% 6.4 % (0-10); NRBC Flagged by Analyzer 0 % (0-5); Neutrophil # 4.86 X10^3/uL (2.7-7.7); Neutrophil % 57.9 % (47-70); Platelet Count 286 K/mm3 (150-450); RBC Distribution Width CV 13.2 % (11.6-14.6); RBC Distribution Width SD 43.5 fl (35.1-43.9); Red Blood Count 4.58 M/mm3 (4.2-5.4); White Blood Count 8.4 K/mm3 (4.4-11.0)
[2024-04-14 08:42] LABS: Color, Urine Yellow (Yellow); Glucose, Dipstick Normal (Normal); Ketone-Dipstick 5 mg/dl (Negative); Leukocyte Esterase-Dipstick 25 /ul (Negative); Nitrite-Dipstick Negative (Negative); Occult Blood-Urine Negative /ul (Negative); Protein-Dipstick 30 mg/dl (Negative); Urine Bilirubin Dipstick 3 mg/dL (Negative); Urine Clarity Sl. Cloudy (Clear); Urine Urobilinogen 1 mg/dl (Normal)
[2024-04-14 08:51] LABS: Calcium Oxalate Crystals Ur 1+ /hpf (<or=2+); Squamous Epithelial Cells - UA 0-5 SEEN /hpf (5-10); White Blood Cells 0-5 SEEN /hpf (0-5)
[2024-04-14 09:02] LABS: Albumin, Serum 3.9 g/dL (3.2-5.0); BUN 10 mg/dL (7-18); BUN/Creat Ratio 14.7 RATIO (10-20); Chloride 110 mmol/L (98-107); Creatinine, Serum 0.68 mg/dL (0.55-1.02); EST Glomerular Filtration Rate 96 mL/min (>60); Est Glom Filt Rate - Afr Amer 116 mL/min (>60); Glucose 167 mg/dL (74-106); Phosphorus 3.1 mg/dL (2.5-4.9); Sodium Level 142 mmol/L (136-145)
[2024-04-14 10:38] LABS: Protein, Urine (Random) 47.8 mg/dL (<11.9); Protein:Creat Ratio 164 mg/g CRE (0-200)
== END | disposition home or self-care (01) ==
PROVIDERS: PCP Family Medicine; Referring Provider Internal Medicine; Visit Provider Internal Medicine
DX: R80.1 Persistent proteinuria, unspecified (principal)
CPT/HCPCS: 36415; 80069; 81001; 82570; 83735; 84156; 85025

== ENCOUNTER → 2024-04-15 | Outpatient (CLI) | payer OTHER, SELFPAY ==
--- NOTE | 2024-04-15 14:04 | BD_ITS ---
STUDY: DUAL ENERGY X-RAY ABSORPTIOMETRY / DXA REASON FOR EXAM: Female, 53 years old. [id number] TECHNIQUE: Bone Mineral Density (BMD) measurements of lumbar spine and bilateral hips were obtained. COMPARISON: None. FINDINGS: Lumbar Spine (L1-L4): g/cm2 (1.017) / T-score (-0.3) / Z-score (0.7) Findings are suggestive of normal bone density with a low fracture risk. Left Femur Total: g/cm2 (1.038) / T-score (0.8) / Z-score (1.4) Left Femoral Neck: g/cm2 (0.817) / T-score (-0.3) / Z-score (0.7) Right Femur Total: g/cm2 (1.018) / T-score (0.6) / Z-score (1.2) Right Femoral Neck: g/cm2 (0.833) / T-score (-0.1) / Z-score (0.8) BD/Dexa Bone Density Study IMPRESSION: The patient is considered normal as outlined below according to World Jeet Organization (WHO) criteria with a low fracture risk. Reference Information: The T-score is the number of standard deviations above or below the standard which is normal for young adults at their peak bone mineral density. The World Health Organization (WHO) interprets the T-scores as follows: Above -1 Normal bone density Between -1 and -2.5 Osteopenia Equal to / or below -2.5 Osteoporosis As a practical clinical guideline, osteopenia may be graded as follows: Mild -1 through -1.5 Moderate -1.6 through -2.0 Severe -2.1 through -2.4 The Z-score is the number of standard deviations above or below age-matched controls. A Z-score of less than -1.5 would be considered abnormal. References: 1. NIH Osteoporosis and Related Bone Diseases www osteo.org 2. International Society for Clinical Densitometry www iscd.org 3. National Osteoporosis Foundation www nof.org Electronically Signed: Obinna Ennis MD at 8:39 EDT ,
== END | disposition home or self-care (01) ==
LOC: OPBD 13:49
PROVIDERS: PCP Family Medicine; Referring Provider Internal Medicine Rheumatology; Visit Provider Internal Medicine Rheumatology
DX: M32.9 Systemic lupus erythematosus, unspecified (principal); R73.09 Other abnormal glucose; R80.8 Other proteinuria; Z78.0 Asymptomatic menopausal state; R76.8 Other specified abnormal immunological findings in serum; Z79.52 Long term (current) use of systemic steroids; Z79.2 Long term (current) use of antibiotics; R79.89 Other specified abnormal findings of blood chemistry; Z92.89 Personal history of other medical treatment; Z87.39 Personal history of other diseases of the musculoskeletal system and connective tissue; R74.8 Abnormal levels of other serum enzymes; E55.9 Vitamin D deficiency, unspecified; K75.81 Nonalcoholic steatohepatitis (NASH); K31.84 Gastroparesis; K82.8 Other specified diseases of gallbladder; E87.8 Other disorders of electrolyte and fluid balance, not elsewhere classified; M79.7 Fibromyalgia; M19.041 Primary osteoarthritis, right hand; M19.042 Primary osteoarthritis, left hand; M51.36 Other intervertebral disc degeneration, lumbar region; M50.30 Other cervical disc degeneration, unspecified cervical region; M47.816 Spondylosis without myelopathy or radiculopathy, lumbar region; M50.20 Other cervical disc displacement, unspecified cervical region
CPT/HCPCS: 77080

== ENCOUNTER → 2024-05-09 | Outpatient (CLI) | payer OTHER, SELFPAY ==
[2024-05-09 10:35] LABS: Absolute Neutrophil Count 4.7 X10^3/uL (2.0-7.7); Basophil# 0.07 X10^3/uL; Basophil% 0.9 % (0-1); Eosinophil# 0.45 X10^3/uL; Eosinophils% 5.8 % (0-5); Hematocrit 42.1 % (37-47); Hemoglobin 13.3 g/dL (12.0-15.0); Lymphocyte % 24.7 % (19-41); Mean Corp Hgb Conc 31.6 g/dL (32-36); Mean Corpuscular Hgb 28.1 pg (27.0-32.0); Mean Platelet Vol. 11.3 fl (6.2-12.0); Monocyte# 0.57 X10^3/uL; Monocyte% 7.4 % (0-10); NRBC Flagged by Analyzer 0 % (0-5); Neutrophil # 4.68 X10^3/uL (2.7-7.7); Neutrophil % 60.8 % (47-70); Platelet Count 223 K/mm3 (150-450); RBC Distribution Width CV 13.4 % (11.6-14.6); RBC Distribution Width SD 43.7 fl (35.1-43.9); Red Blood Count 4.73 M/mm3 (4.2-5.4); White Blood Count 7.7 K/mm3 (4.4-11.0)
[2024-05-09 10:46] LABS: Vitamin B12 327 pg/mL (211-911); Vitamin D,25 Hydroxy 77.5 ng/mL
[2024-05-09 10:58] LABS: Hemoglobin A1c 6.1 % (3.8-5.6)
[2024-05-09 11:17] LABS: Microalbumin:Creatinine Ratio 10.7 mg/g CRE (<30 mg/g CRE)
[2024-05-09 11:33] LABS: ALB/GLOB Ratio 1.4 RATIO (0.9-2.4); AST(SGOT) 59 U/L (15-37); Alanine Aminotransfer ALT/SGPT 62 U/L (13-56); Albumin, Serum 4.3 g/dL (3.2-5.0); Alkaline Phosphatase 93 U/L (45-117); Anion Gap 9 (5-15); BUN 12 mg/dL (7-18); BUN/Creat Ratio 18.2 RATIO (10-20); Chloride 108 mmol/L (98-107); Cholesterol 134 mg/dL (200); Creatinine, Serum 0.66 mg/dL (0.55-1.02); EST Glomerular Filtration Rate 100 mL/min (>60); Est Glom Filt Rate - Afr Amer 121 mL/min (>60); Ferritin 53 ng/mL (8-252); Glucose 152 mg/dL (74-106); High Density Lipoprotein 39 mg/dL; Iron 72 ug/dL (50-170); Iron Binding Capacity,Total 449 ug/dL (250-450); Magnesium 2.2 mg/dL (1.6-2.6); Potassium 3.7 mmol/L (3.5-5.1); Protein, Total 7.3 g/dL (6.4-8.2); Sodium Level 140 mmol/L (136-145); Triglycerides 232 mg/dL; Very Low Density Lipoprotein 46 mg/dL (5-40)
== END | disposition home or self-care (01) ==
LOC: MFPLAB 08:20
PROVIDERS: PCP Family Medicine; Visit Provider Family Medicine
DX: E55.9 Vitamin D deficiency, unspecified (principal); I47.9 Paroxysmal tachycardia, unspecified; E11.69 Type 2 diabetes mellitus with other specified complication; D64.9 Anemia, unspecified
CPT/HCPCS: 36415; 80053; 80061; 82043; 82306; 82570; 82607; 82728; 82746; 83036; 83540; 83550; 83735; 85025

== ENCOUNTER 2024-07-08 09:21 | Outpatient (RCR) | payer OTHER, SELFPAY ==
[2024-07-08 09:38] LABS: Red Blood Cells-Urine 0 SEEN /hpf (0-5); Squamous Epithelial Cells - UA 0 SEEN /hpf (5-10)
[2024-07-08 10:45] LABS: Absolute Lymphocyte Count 2.66 X10^3/uL (0.83-4.51); Basophil# 0.08 X10^3/uL; Basophil% 0.8 % (0-1); Eosinophil# 0.65 X10^3/uL; Eosinophils% 6.4 % (0-5); Hematocrit 41.8 % (37-47); Hemoglobin 13.5 g/dL (12.0-15.0); Lymphocyte # 2.66 X10^3/ul (0.83-4.51); Mean Corp Hgb Conc 32.3 g/dL (32-36); Mean Corpuscular Hgb 28.7 pg (27.0-32.0); Mean Corpuscular Volume 88.9 fL (81-99); Monocyte# 0.76 X10^3/uL; Monocyte% 7.4 % (0-10); NRBC Flagged by Analyzer 0 % (0-5); Neutrophil # 6.03 X10^3/uL (2.7-7.7); Neutrophil % 58.9 % (47-70); Platelet Count 292 K/mm3 (150-450); RBC Distribution Width CV 13.8 % (11.6-14.6); RBC Distribution Width SD 44.7 fl (35.1-43.9); White Blood Count 10.2 K/mm3 (4.4-11.0)
[2024-07-08 10:47] LABS: Erythrocyte Sedimentation Rate 1 mm/hr (0-30)
[2024-07-08 10:55] LABS: Color, Urine Amber (Yellow); Glucose, Dipstick Normal (Normal); Ketone-Dipstick 5 mg/dl (Negative); Leukocyte Esterase-Dipstick 25 /ul (Negative); Nitrite-Dipstick Negative (Negative); Occult Blood-Urine Negative /ul (Negative); Protein-Dipstick 15 mg/dl (Negative); Urine Clarity Clear (Clear); Urine Urobilinogen Normal (Normal)
[2024-07-08 10:59] LABS: Urine Bilirubin Dipstick 1 mg/dL (Negative)
[2024-07-08 11:04] LABS: White Blood Cells 10-25 SEEN /hpf (0-5)
[2024-07-08 11:05] LABS: Bacteria 1+ /hpf (None Seen); Coarse Granular Cast 0-5 SEEN /lpf (0-5 /lpf); Mucous, Urine 2+ /hpf (<or=2+)
[2024-07-08 11:20] LABS: CPK Total, Creatine Kinase 72 U/L (26-192); CRP < 2.90 mg/L (0.0-3.0)
== END 2024-07-08 18:00 | disposition home or self-care (01) ==
LOC: LAB 09:21
PROVIDERS: PCP Family Medicine; Referring Provider Internal Medicine Rheumatology; Visit Provider Internal Medicine Rheumatology
DX: M32.9 Systemic lupus erythematosus, unspecified (principal); R73.09 Other abnormal glucose; R80.8 Other proteinuria; Z78.0 Asymptomatic menopausal state; R76.8 Other specified abnormal immunological findings in serum; Z79.52 Long term (current) use of systemic steroids; Z79.2 Long term (current) use of antibiotics; R79.89 Other specified abnormal findings of blood chemistry; Z92.89 Personal history of other medical treatment; Z87.39 Personal history of other diseases of the musculoskeletal system and connective tissue; K75.81 Nonalcoholic steatohepatitis (NASH); K31.84 Gastroparesis; K82.8 Other specified diseases of gallbladder; E87.8 Other disorders of electrolyte and fluid balance, not elsewhere classified; E83.52 Hypercalcemia; M79.7 Fibromyalgia; M19.041 Primary osteoarthritis, right hand; M19.042 Primary osteoarthritis, left hand; M51.360 Other intervertebral disc degeneration, lumbar region with discogenic back pain only; M50.20 Other cervical disc displacement, unspecified cervical region; M50.30 Other cervical disc degeneration, unspecified cervical region
CPT/HCPCS: 36415; 81001; 82550; 85025; 85652; 86140; 87086

== ENCOUNTER → 2024-08-13 | Outpatient (CLI) | payer OTHER, SELFPAY | END | disposition home or self-care (01) | LOC: MTRAD 14:41 | PROVIDERS: PCP Family Medicine; Referring Provider Family Medicine; Visit Provider Family Medicine | DX: M54.12 Radiculopathy, cervical region (principal); M25.511 Pain in right shoulder; M25.512 Pain in left shoulder | CPT/HCPCS: 72040; 73030 ==

== ENCOUNTER → 2024-09-09 | Outpatient (CLI) | payer OTHER, SELFPAY ==
[2024-09-09 12:20] LABS: Vitamin D,25 Hydroxy 69.1 ng/mL
[2024-09-09 12:29] LABS: ALB/GLOB Ratio 1.5 RATIO (0.9-2.4); AST(SGOT) 53 U/L (15-37); Alanine Aminotransfer ALT/SGPT 75 U/L (13-56); Albumin, Serum 4.3 g/dL (3.2-5.0); Alkaline Phosphatase 120 U/L (45-117); Anion Gap 8 (5-15); BUN 12 mg/dL (7-18); BUN/Creat Ratio 17.5 RATIO (10-20); Calcium,Total 9.6 mg/dL (8.5-10.1); Chloride 106 mmol/L (98-107); Cholesterol 141 mg/dL (200); Creatinine, Serum 0.68 mg/dL (0.55-1.02); EST Glomerular Filtration Rate 95 mL/min (>60); Est Glom Filt Rate - Afr Amer 115 mL/min (>60); Globulin 2.9 g/dL (2.2-4.2); Glucose 115 mg/dL (74-106); High Density Lipoprotein 55 mg/dL; Protein, Total 7.2 g/dL (6.4-8.2); Sodium Level 140 mmol/L (136-145); Triglycerides 87 mg/dL; Very Low Density Lipoprotein 17 mg/dL (5-40)
[2024-09-09 12:55] LABS: Microalbumin,Random Urine 20.6 mg/L (NO RANGE EST.); Microalbumin:Creatinine Ratio 8.8 mg/g CRE (<30 mg/g CRE)
== END | disposition home or self-care (01) ==
LOC: MFPLAB 10:15
PROVIDERS: PCP Family Medicine; Referring Provider Family Medicine; Visit Provider Family Medicine
DX: E11.8 Type 2 diabetes mellitus with unspecified complications (principal); E55.9 Vitamin D deficiency, unspecified
CPT/HCPCS: 36415; 80053; 80061; 82043; 82306; 82570; 83036

== ENCOUNTER → 2024-12-26 | Outpatient (CLI) | payer OTHER, SELFPAY ==
[2024-12-26 13:20] LABS: Color, Urine Yellow (Yellow); Glucose, Dipstick Normal (Normal); Ketone-Dipstick 5 mg/dl (Negative); Leukocyte Esterase-Dipstick 25 /ul (Negative); Nitrite-Dipstick Negative (Negative); Occult Blood-Urine Negative /ul (Negative); Protein-Dipstick 30 mg/dl (Negative); Urine Bilirubin Dipstick Negative (Negative); Urine Clarity Clear (Clear); Urine Urobilinogen Normal (Normal)
[2024-12-26 13:55] LABS: Squamous Epithelial Cells - UA 0-5 SEEN /hpf (5-10)
[2024-12-26 13:56] LABS: Red Blood Cells-Urine 0-5 SEEN /hpf (0-5); White Blood Cells 5-10 SEEN /hpf (0-5)
[2024-12-26 13:57] LABS: Bacteria 1+ /hpf (None Seen)
[2024-12-26 13:58] LABS: Mucous, Urine RARE /hpf (<or=2+)
== END | disposition home or self-care (01) ==
LOC: LAB 12:24
PROVIDERS: PCP Family Medicine; Referring Provider Internal Medicine; Visit Provider Internal Medicine
DX: R30.0 Dysuria (principal)
CPT/HCPCS: 36415; 81001; 87077; 87086; 87088; 87186

== ENCOUNTER → 2025-01-15 | Outpatient (CLI) | payer OTHER, SELFPAY ==
--- NOTE | 2025-01-15 16:24 | RAD_ITS ---
PROCEDURE: ACUTE ABDOMEN INC CHEST 01/15/2025 REASON FOR EXAM: CONSTIPATION, GASTROPARESIS, EVAL STOOL BURDEN TECHNIQUE: Single view chest with supine and upright views of the abdomen. COMPARISON: None available FINDINGS: Hardware: None Heart: Cardiomediastinal silhouette is within normal limits. Normal pulmonary vascularity. Lungs: Negative lobar consolidation. Bowel gas: Nonobstructive bowel-gas pattern Free air: None available Calcifications: None Bones: No acute fractures. Other: RAD/Acute Abdomen Inc Chest IMPRESSION: Nonobstructive bowel gas pattern No acute cardiopulmonary abnormality. Reading Location: [id number]
[2025-01-15 17:45] LABS: Absolute Lymphocyte Count 2.52 X10^3/uL (0.83-4.51); Absolute Neutrophil Count 6.5 X10^3/uL (2.0-7.7); Basophil# 0.08 X10^3/uL; Basophil% 0.8 % (0-1); Eosinophil# 0.34 X10^3/uL; Eosinophils% 3.3 % (0-5); Hematocrit 41.4 % (37-47); Hemoglobin 13.7 g/dL (12.0-15.0); Lymphocyte # 2.52 X10^3/ul (0.83-4.51); Lymphocyte % 24.2 % (19-41); Mean Corp Hgb Conc 33.1 g/dL (32-36); Mean Corpuscular Hgb 29.5 pg (27.0-32.0); Mean Platelet Vol. 10.6 fl (6.2-12.0); Monocyte# 0.86 X10^3/uL; Monocyte% 8.3 % (0-10); NRBC Flagged by Analyzer 0 % (0-5); Neutrophil # 6.53 X10^3/uL (2.7-7.7); Neutrophil % 62.7 % (47-70); Platelet Count 268 K/mm3 (150-450); RBC Distribution Width SD 44.5 fl (35.1-43.9); Red Blood Count 4.65 M/mm3 (4.2-5.4); White Blood Count 10.4 K/mm3 (4.4-11.0)
[2025-01-15 18:09] LABS: PTHIN 15 pg/mL (11-61)
[2025-01-15 18:24] LABS: ALB/GLOB Ratio 2.1 RATIO (0.9-2.4); AST(SGOT) 39 U/L (<=31); Alanine Aminotransfer ALT/SGPT 38 U/L (<=34); Albumin, Serum 4.9 g/dL (3.5-5.0); Alkaline Phosphatase 80 U/L (35-104); Anion Gap 14 (5-15); BUN 9 mg/dL (4-19); BUN/Creat Ratio 17.5 RATIO (10-20); Calcium,Total 10.4 mg/dL (7.6-11.0); Carbon Dioxide 23.6 mmol/L (21.0-32.0); Chloride 101 mmol/L (98-108); Cholesterol 119 mg/dL (<=200); Creatinine, Serum 0.52 mg/dL (0.70-1.20); EST Glomerular Filtration Rate 110 (>60); Globulin 2.4 g/dL (2.2-4.2); Glucose 89 mg/dL (70-99); High Density Lipoprotein 35 mg/dL; Low Density Lipoprotein Calc. 26 mg/dL; Magnesium 1.6 mg/dL (1.5-2.2); Potassium 4.2 mmol/L (3.3-5.1); Protein, Total 7.3 g/dL (5.9-8.4); Sodium Level 138 mmol/L (133-145); Total Bilirubin 0.77 mg/dL (0.00-1.30); Triglycerides 293 mg/dL; Very Low Density Lipoprotein 59 mg/dL (5-40); cholesterol:hdl ratio screen 3.42
[2025-01-15 18:25] LABS: Vitamin D,25 Hydroxy 59.1 ng/mL (30-100)
[2025-01-15 18:40] LABS: Hemoglobin A1c 6.4 % (<=5.6)
[2025-01-15 19:55] LABS: Microalbumin,Random Urine < 12.0 mg/L (NO RANGE EST.)
== END | disposition home or self-care (01) ==
LOC: MTLAB 16:21
PROVIDERS: PCP Family Medicine; Referring Provider Family Medicine; Visit Provider Family Medicine
DX: K59.00 Constipation, unspecified (principal); I47.9 Paroxysmal tachycardia, unspecified; E11.43 Type 2 diabetes mellitus with diabetic autonomic (poly)neuropathy; E11.69 Type 2 diabetes mellitus with other specified complication; E11.59 Type 2 diabetes mellitus with other circulatory complications; K31.84 Gastroparesis; E83.52 Hypercalcemia
CPT/HCPCS: 36415; 74022; 80053; 80061; 82043; 82306; 83036; 83735; 83970; 84443; 85025

== ENCOUNTER → 2025-04-06 | Outpatient (CLI) | payer OTHER, SELFPAY ==
[2025-04-06 11:50] LABS: Bacteria 0 SEEN /hpf (None Seen); Mucous, Urine 0 SEEN /hpf (<or=2+)
[2025-04-06 15:07] LABS: Absolute Lymphocyte Count 2.74 X10^3/uL (0.83-4.51); Absolute Neutrophil Count 4.4 X10^3/uL (2.0-7.7); Basophil% 1.2 % (0-1); Eosinophil# 0.62 X10^3/uL; Eosinophils% 7.2 % (0-5); Hematocrit 41.7 % (37-47); Hemoglobin 13.7 g/dL (12.0-15.0); Lymphocyte # 2.74 X10^3/ul (0.83-4.51); Lymphocyte % 31.7 % (19-41); Mean Corp Hgb Conc 32.9 g/dL (32-36); Mean Corpuscular Hgb 29.3 pg (27.0-32.0); Mean Corpuscular Volume 89.1 fL (81-99); Mean Platelet Vol. 10.9 fl (6.2-12.0); Monocyte# 0.74 X10^3/uL; Monocyte% 8.6 % (0-10); NRBC Flagged by Analyzer 0 % (0-5); Neutrophil % 50.8 % (47-70); Platelet Count 257 K/mm3 (150-450); RBC Distribution Width CV 13.5 % (11.6-14.6); RBC Distribution Width SD 43.7 fl (35.1-43.9); Red Blood Count 4.68 M/mm3 (4.2-5.4); White Blood Count 8.6 K/mm3 (4.4-11.0)
[2025-04-06 15:41] LABS: Anion Gap 15 (5-15); BUN 11 mg/dL (4-19); BUN/Creat Ratio 18.4 RATIO (10-20); Calcium,Total 10.4 mg/dL (7.6-11.0); Carbon Dioxide 21.8 mmol/L (21.0-32.0); Chloride 105 mmol/L (98-108); Creatinine, Serum 0.59 mg/dL (0.70-1.20); EST Glomerular Filtration Rate 107 (>60); Glucose 103 mg/dL (70-99); Magnesium 2.1 mg/dL (1.5-2.2); Phosphorus 3.9 mg/dL (2.7-4.5); Potassium 4.5 mmol/L (3.3-5.1); Sodium Level 141 mmol/L (133-145)
[2025-04-06 15:44] LABS: Color, Urine Straw (Yellow); Glucose, Dipstick Normal (Normal); Ketone-Dipstick 5 mg/dl (Negative); Leukocyte Esterase-Dipstick Negative /ul (Negative); Nitrite-Dipstick Negative (Negative); Occult Blood-Urine Negative /ul (Negative); Protein-Dipstick 15 mg/dl (Negative); Urine Bilirubin Dipstick Negative (Negative); Urine Clarity Clear (Clear); Urine Urobilinogen Normal (Normal)
[2025-04-06 15:46] LABS: Microalbumin,Random Urine < 12.0 mg/L (NO RANGE EST.); Microalbumin:Creatinine Ratio UNABLE TO CALCULATE mg/g CRE; Protein, Urine (Random) 13.4 mg/dL (0.0-12.0); Protein:Creat Ratio 149 mg/g CRE (0-200); Urine Sodium 78 mmol/L (Not Establ.)
[2025-04-06 16:08] LABS: Red Blood Cells-Urine 0-5 SEEN /hpf (0-5); Squamous Epithelial Cells - UA 0-5 SEEN /hpf (5-10); White Blood Cells 0-5 SEEN /hpf (0-5)
== END | disposition home or self-care (01) ==
LOC: MTLAB 11:42
PROVIDERS: PCP Family Medicine; Referring Provider Internal Medicine; Visit Provider Internal Medicine
DX: R80.1 Persistent proteinuria, unspecified (principal)
CPT/HCPCS: 36415; 80069; 81001; 82043; 82570; 83735; 84156; 84300; 85025

== ENCOUNTER → 2025-05-08 | Outpatient (CLI) | payer OTHER, SELFPAY ==
[2025-05-08 10:05] LABS: Mucous, Urine 0 SEEN /hpf (<or=2+); Red Blood Cells-Urine 0 SEEN /hpf (0-5)
[2025-05-08 12:34] LABS: Color, Urine Yellow (Yellow); Glucose, Dipstick Normal (Normal); Ketone-Dipstick Negative (Negative); Leukocyte Esterase-Dipstick 25 /ul (Negative); Nitrite-Dipstick Negative (Negative); Occult Blood-Urine Negative /ul (Negative); Protein-Dipstick 15 mg/dl (Negative); Specific Gravity, Urine 1.025 (1.002-1.030); Urine Bilirubin Dipstick Negative (Negative)
[2025-05-08 12:42] LABS: Squamous Epithelial Cells - UA 0-5 SEEN /hpf (5-10)
[2025-05-12 18:08] LABS: Egg, Whole <0.10 kU/L (Class 0); Mussels <0.10 kU/L (Class 0)
== END | disposition home or self-care (01) ==
LOC: MTLAB 09:34
PROVIDERS: PCP Family Medicine; Referring Provider Family Medicine; Visit Provider Family Medicine
DX: E11.59 Type 2 diabetes mellitus with other circulatory complications (principal); I10 Essential (primary) hypertension; Z91.018 Allergy to other foods
CPT/HCPCS: 36415; 80061; 81001; 82306; 82728; 83036; 83540; 83550; 83735; 86003; 86005

== ENCOUNTER → 2025-08-19 | Outpatient (CLI) | payer OTHER, SELFPAY ==
[2025-08-19 11:51] LABS: Mucous, Urine 0 SEEN /hpf (<or=2+)
[2025-08-19 16:07] LABS: Creatinine, Urine (random) 15.00 mg/dL (28.00-217.00); Microalbumin,Random Urine < 12.0 mg/L (<20 mg/L)
[2025-08-19 16:11] LABS: Color, Urine Yellow (Yellow); Glucose, Dipstick Normal (Normal); Ketone-Dipstick Negative (Negative); Leukocyte Esterase-Dipstick Negative /ul (Negative); Nitrite-Dipstick Negative (Negative); Occult Blood-Urine Negative /ul (Negative); Protein-Dipstick Negative (Negative); Specific Gravity, Urine 1.010 (1.002-1.030); Urine Bilirubin Dipstick Negative (Negative)
[2025-08-19 16:24] LABS: Red Blood Cells-Urine 0-5 SEEN /hpf (0-5); Squamous Epithelial Cells - UA 0-5 SEEN /hpf (5-10)
[2025-08-19 16:54] LABS: AST(SGOT) 54 U/L (<=31); Alanine Aminotransfer ALT/SGPT 63 U/L (<=34); Albumin, Serum 5.1 g/dL (3.5-5.0); Alkaline Phosphatase 94 U/L (35-104); Anion Gap 13 (5-15); BUN 17 mg/dL (4-19); BUN/Creat Ratio 31.0 RATIO (10-20); Calcium,Total 11.1 mg/dL (7.6-11.0); Carbon Dioxide 23.4 mmol/L (21.0-32.0); Chloride 103 mmol/L (98-108); Ferritin 71 ng/mL (22-378); Globulin 2.3 g/dL (2.2-4.2); Glucose 96 mg/dL (70-99); Iron 73 ug/dL (50-170); Iron Binding Capacity,Unsat 380 ug/dL (228-428); Potassium 4.4 mmol/L (3.3-5.1); Vitamin D,25 Hydroxy 59.3 ng/mL (30-100)
[2025-08-19 17:30] LABS: Cholesterol 163 mg/dL (<=200); Low Density Lipoprotein Calc. 92 mg/dL; Triglycerides 151 mg/dL; Very Low Density Lipoprotein 30 mg/dL (5-40); cholesterol:hdl ratio screen 3.63
[2025-08-19 18:15] LABS: Hematocrit 43.1 % (37-47); Hemoglobin 14.4 g/dL (12.0-15.0); Immature Granulocytes Count 0.070 X10^3/uL (0.0-0.0); Mean Corp Hgb Conc 33.4 g/dL (32-36); Mean Corpuscular Volume 87.4 fL (81-99); Mean Platelet Vol. 10.6 fl (6.2-12.0); NRBC Flagged by Analyzer 0 % (0-5); Platelet Count 281 K/mm3 (150-450); RBC Distribution Width CV 13.4 % (11.6-14.6); RBC Distribution Width SD 42.6 fl (35.1-43.9); Red Blood Count 4.93 M/mm3 (4.2-5.4); White Blood Count 10.4 K/mm3 (4.4-11.0)
[2025-08-19 18:35] LABS: Iron Binding Capacity,Total 453 ug/dL (250-450)
== END | disposition home or self-care (01) ==
LOC: MTLAB 11:43
PROVIDERS: PCP Family Medicine; Referring Provider Internal Medicine Pulmonary Disease; Visit Provider Internal Medicine Pulmonary Disease
DX: E11.8 Type 2 diabetes mellitus with unspecified complications (principal); E61.1 Iron deficiency; E55.9 Vitamin D deficiency, unspecified; G25.81 Restless legs syndrome
CPT/HCPCS: 36415; 80053; 80061; 81001; 82043; 82306; 82570; 82728; 83036; 83540; 83550; 85025